=== PATIENT | female | born 1980 | race Hispanic/Latino ===

== ENCOUNTER 2018-02-02 15:26 | Emergency (ER) | payer BC ==
--- NOTE | 2018-02-02 18:34 | RAD REPORT ---
EXAM DESCRIPTION: [place] Single View02/02/2018 6:02 pm CLINICAL HISTORY: Chest pain COMPARISON: none FINDINGS: An area of subsegmental atelectasis is present within the left lung base. The remainder of the lungs appear clear of acute infiltrate. The heart is normal size
--- NOTE | 2018-02-02 18:37 | EDPHYS ---
Physician Documentation [facility] Name: Christiane Lyles Age: 37 yrs Sex: Female : 1980 Arrival Date: 02/02/2018 Time: 15:28 Bed 3 Private MD: ED Physician Maxwell Armstrong HPI: 02/02 20:05 This 37 yrs old Female presents to ER via Ambulatory with complaints of Chest jr8 Pain > 30 y/o. 20:05 The patient or guardian reports chest pain that is located primarily in the anterior jr8 chest wall, bilaterally. The pain does not radiate. Associated signs and symptoms: Pertinent positives: cough. The chest pain is described as sharp. Modifying factors: The symptoms are alleviated by nothing. the symptoms are aggravated by breathing, cough, movement. Severity of pain: At its worst the pain was mild in the emergency department the pain is unchanged. The patient has not experienced similar symptoms in the past. The patient has been recently seen at an urgent care. Sent to ED after having ECG completed. Stated that they were concerned because it had said borderline ECG . 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 - Social history:: Smoking status: Patient uses tobacco products, smokes one pack cigarettes per day. - Ebola Screening: : Patient negative for fever greater than or equal to 101.5 degrees Fahrenheit, and additional compatible Ebola Virus Disease symptoms Patient denies exposure to infectious person Patient denies travel to an Ebola-affected area in the 21 days before illness onset No symptoms or risks identified at this time. ROS: 20:05 Eyes: Negative for injury, pain, redness, and discharge, Neck: Negative for injury, jr8 pain, and swelling, Abdomen/GI: Negative for abdominal pain, nausea, vomiting, diarrhea, and constipation, Back: Negative for injury and pain, MS/Extremity: Negative for injury and deformity, Skin: Negative for injury, rash, and discoloration, Neuro: Negative for headache, weakness, numbness, tingling, and seizure. 20:05 ENT: Positive for rhinorrhea, sinus congestion, Negative for drainage from ear(s), ear pain, difficulty swallowing, difficulty handling secretions, hoarseness. 20:05 Cardiovascular: Positive for chest pain, Negative for edema, orthopnea, palpitations, paroxysmal nocturnal dyspnea. 20:05 Respiratory: Positive for cough, Negative for dyspnea on exertion, shortness of breath, sputum production, wheezing. Exam: 20:05 Eyes: Pupils equal round and reactive to light, extra-ocular motions intact. Lids and jr8 lashes normal. Conjunctiva and sclera are non-icteric and not injected. Cornea within normal limits. Periorbital areas with no swelling, redness, or edema. ENT: Nares patent. No nasal discharge, no septal abnormalities noted. Tympanic membranes are normal and external auditory canals are clear. Oropharynx with no redness, swelling, or masses, exudates, or evidence of obstruction, uvula midline. Mucous membranes moist. Neck: Trachea midline, no thyromegaly or masses palpated, and no cervical lymphadenopathy. Supple, full range of motion without nuchal rigidity, or vertebral point tenderness. No Meningismus. Cardiovascular: Regular rate and rhythm with a normal S1 and S2. No gallops, murmurs, or rubs. Normal PMI, no JVD. No pulse deficits. Respiratory: Lungs have equal breath sounds bilaterally, clear to auscultation and percussion. No rales, rhonchi or wheezes noted. No increased work of breathing, no retractions or nasal flaring. Abdomen/GI: Soft, non-tender, with normal bowel sounds. No distension or tympany. No guarding or rebound. No evidence of tenderness throughout. Back: No spinal tenderness. No costovertebral tenderness. Full range of motion. Skin: Warm, dry with normal turgor. Normal color with no rashes, no lesions, and no evidence of cellulitis. MS/ Extremity: Pulses equal, no cyanosis. Neurovascular intact. Full, normal range of motion. Neuro: Awake and alert, GCS 15, oriented to person, place, time, and situation. Cranial nerves II-XII grossly intact. Motor strength 5/5 in all extremities. Sensory grossly intact. Cerebellar exam normal. Normal gait. 20:05 Chest/axilla: Inspection: normal, Palpation: tenderness, that is moderate, of the mid-sternal area, that totally reproduces the patient's complaints. Vital Signs: 15:41 BP 123 / 71; Pulse 85; Resp 16; Temp 97.8; Pulse Ox 97% on R/A; Weight 81.65 kg; Height aj 5 ft. 3 in. (160.02 cm); 17:10 BP 122 / 75; Pulse 80; Resp 16 S; Pulse Ox 100% on R/A; jl7 18:15 BP 124 / 72; Pulse 79; Resp 16; Pulse Ox 100% on R/A; jl7 15:41 Body Mass Index 31.89 (81.65 kg, 160.02 cm) aj MDM: 17:03 Patient medically screened. jr8 18:31 Data reviewed: vital signs, nurses notes, EKG, radiologic studies, plain films, and as jr8 a result, I will discharge patient. Data interpreted: Pulse oximetry: on room air is 97 %. Interpretation: normal. Counseling: I had a detailed discussion with the patient and/or guardian regarding: the historical points, exam findings, and any diagnostic results supporting the discharge/admit diagnosis, radiology results, the need for outpatient follow up, a family practitioner, to return to the emergency department if symptoms worsen or persist or if there are any questions or concerns that arise at home. 02/02 17:31 Order name: XRAY Chest (1 view); Complete Time: 18:36 jr8 02/02 17:49 Order name: EKG Electrocardiogram EDMS Administered Medications: No medications were administered Disposition: 02/03 07:18 Co-signature as Attending Physician, Maxwell Armstrong MD I agree with the assessment and kdr plan of care. Disposition: 02/02/18 18:36 Discharged to Home. Impression: Chest pain, unspecified. - Condition is Stable. - Discharge Instructions: Chest Wall Pain. - Prescriptions for Ibuprofen 800 mg Oral Tablet - take 1 tablet by ORAL route every 12 hours As needed take with food; 20 tablet. Zithromax Z- Ayden 250 mg Oral Tablet - take 1 tablet by ORAL route as directed for 5 days Day 1 - take two (2) tablets one time. Day 2, 3, 4 , 5 take one (1) tablet once daily.; 6 tablet. Medrol (Ayden) 4 mg Oral Tablets, Dose Pack - take 1 tablet by ORAL route as directed - follow package instructions; 1 packet. - Medication Reconciliation Form, Thank You Letter, Antibiotic Education, Prescription Opioid Use form. - Follow up: Private Physician; When: 2 - 3 days; Reason: Recheck today's complaints, Continuance of care, Re-evaluation by your physician. - Problem is new. - Symptoms have improved. Signatures: Dispatcher [employer] EDMS Brigida Duarte, RN RN Maxwell Newman MD MD kdr Roszak, Josh, PA PA jr8 Adrianna Mills RN RN jl7 Corrections: (The following items were deleted from the chart) 02/02 19:04 18:36 02/02/2018 18:36 Discharged to Home. Impression: Chest pain, unspecified. jl7 Condition is Stable. Forms are Medication Reconciliation Form, Thank You Letter, Antibiotic Education, Prescription Opioid Use. Follow up: Private Physician; When: 2 - 3 days; Reason: Recheck today's complaints, Continuance of care, Re-evaluation by your physician. Problem is new. Symptoms have improved. jr8
--- NOTE | 2018-02-02 18:37 | ER ---
Nurse's Notes [facility] Name: Christiane Lyles Age: 37 yrs Sex: Female : 1980 Arrival Date: 02/02/2018 Time: 15:28 Bed 3 Private MD: Diagnosis: Chest pain, unspecified Presentation: 02/02 15:37 Presenting complaint: Patient states: Sent from [facility] after borderline aj EKG. Patient reports having chest pressure and vomiting on Tuesday. Reports sinus congestion and ear pain today with "tenderness to chest" with palpation. Transition of care: patient was not received from another setting of care. Onset of symptoms was January 31, 2018. Risk Assessment: Do you want to hurt yourself or someone else? Patient reports no desire to harm self or others. Initial Sepsis Screen: Does the patient meet any 2 criteria? No. Patient's initial sepsis screen is negative. Does the patient have a suspected source of infection? No. Patient's initial sepsis screen is negative. Care prior to arrival: None. 15:37 Method Of Arrival: Ambulatory 15:37 Acuity: SAROJ 3 Triage Assessment: 15:39 General: Appears in no apparent distress. comfortable, Behavior is calm, cooperative, aj appropriate for age. Pain: Complains of pain in right ear, left ear, chest, left aspect of posterior pharynx and right aspect of posterior pharynx. EENT: Reports nasal congestion nasal discharge pain in left ear and right ear. Neuro: Level of Consciousness is awake, alert, obeys commands, Oriented to person, place, time, situation, Appropriate for age. Cardiovascular: Reports chest pain. Respiratory: Airway is patent Respiratory effort is even, unlabored, Respiratory pattern is regular, symmetrical. Derm: Skin is intact, is healthy with good turgor, Skin is pink, warm \\T\\ dry. normal. 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 - Social history:: Smoking status: Patient uses tobacco products, smokes one pack cigarettes per day. - Ebola Screening: : Patient negative for fever greater than or equal to 101.5 degrees Fahrenheit, and additional compatible Ebola Virus Disease symptoms Patient denies exposure to infectious person Patient denies travel to an Ebola-affected area in the 21 days before illness onset No symptoms or risks identified at this time. Screenin:15 Abuse screen: Denies threats or abuse. Denies injuries from another. Nutritional jl7 screening: No deficits noted. Tuberculosis screening: No symptoms or risk factors identified. Fall Risk None identified. Assessment: 17:10 General: Appears in no apparent distress. uncomfortable, Behavior is calm, cooperative, jl7 appropriate for age. Pain: Complains of pain in mid-sternal area Pain does not radiate. Pain currently is 0 out of 10 on a pain scale. at worst was 5 out of 10 on a pain scale. Quality of pain is described as burning, pressure, Pain began 2-3 days ago. Is intermittent. Neuro: Level of Consciousness is awake, alert, obeys commands, Oriented to person, place, time, situation. Cardiovascular: Heart tones S1 S2 present Patient's skin is warm and dry. Respiratory: Airway is patent Respiratory effort is even, unlabored, Respiratory pattern is regular, symmetrical. GI: No signs and/or symptoms were reported involving the gastrointestinal system. : No signs and/or symptoms were reported regarding the genitourinary system. EENT: No signs and/or symptoms were reported regarding the EENT system. Derm: Skin is pink, warm \\T\\ dry. Musculoskeletal: No signs and/or symptoms reported regarding the musculoskeletal system. Vital Signs: 15:41 BP 123 / 71; Pulse 85; Resp 16; Temp 97.8; Pulse Ox 97% on R/A; Weight 81.65 kg; Height aj 5 ft. 3 in. (160.02 cm); 17:10 BP 122 / 75; Pulse 80; Resp 16 S; Pulse Ox 100% on R/A; jl7 18:15 BP 124 / 72; Pulse 79; Resp 16; Pulse Ox 100% on R/A; jl7 15:41 Body Mass Index 31.89 (81.65 kg, 160.02 cm) aj ED Course: 15:28 Patient arrived in ED. am2 15:39 Triage completed. aj 15:41 Arm band placed on right wrist. Patient placed. EKG completed in triage. Results shown aj to MD. 16:02 EKG done, by hvac technician residential. dt2 17:03 Lucio Gardner PA is PHCP. jr8 17:03 Maxwell Armstrong MD is Attending Physician. jr8 17:05 Adrianna Mills, RN is Primary Nurse. jl7 17:15 Patient has correct armband on for positive identification. Placed in gown. Bed in low jl7 position. Call light in reach. Side rails up X 1. surveillance system monitor on. Pulse ox on. NIBP on. Warm blanket given. 17:41 Initial lab(s) drawn, by me. Inserted saline lock: 22 gauge in left antecubital area, jb1 using aseptic technique. Blood collected. 18:01 X-ray completed. Portable x-ray completed in exam room. jr1 18:04 XRAY Chest (1 view) In Process Unspecified. EDMS 19:09 IV discontinued, intact, bleeding controlled, No redness/swelling at site. Pressure jl7 dressing applied. Patient maintains SpO2 saturation greater than 95% on room air. 19:09 No provider procedures requiring assistance completed. jl7 Administered Medications: No medications were administered Outcome: 18:36 Discharge ordered by MD. jr8 19:04 Patient left the ED. jl7 19:09 Discharged to home ambulatory. jl7 19:09 Condition: stable 19:09 Discharge instructions given to patient, Instructed on discharge instructions, follow up and referral plans. medication usage, Demonstrated understanding of instructions, follow-up care, medications, Prescriptions given X 3. Signatures: Dispatcher [employer] EDWV Kirby Brian jb1 Brigida Duarte, RN Bijal Perry jr1 Lucio Gardner PA PA jr8 Adrianna Mills, RN RN Brigida Cotto am2 Lolita Manley dt2
--- NOTE | 2018-02-03 07:35 | EKG ---
Test Date: 2018-02-02 Test Time: 15:43:48 [employer] Architect: MARKO MEASUREMENT RESULTS: Intervals: Rate: 82 DE: 150 QRSD: 76 QT: 352 QTc: 411 [place]: P: 52 DE: 150 QRS: 77 T: 52 INTERPRETIVE STATEMENTS: Normal sinus rhythm Possible Left atrial enlargement Borderline ECG No previous ECG available for comparison Electronically Signed On 02-03-18 07:34:10 CDT by John Soni
== END 2018-02-02 19:04 | disposition home or self-care (01) ==
LOC: ER 15:26
DX: R07.9 Chest pain, unspecified (principal); F32.9 Major depressive disorder, single episode, unspecified; F41.9 Anxiety disorder, unspecified; F17.210 Nicotine dependence, cigarettes, uncomplicated; Z86.73 Personal history of transient ischemic attack (TIA), and cerebral infarction without residual deficits
CPT/HCPCS: 71045; 93005; 99285

== ENCOUNTER 2021-03-16 17:15 | Emergency (ER) | payer BC ==
[2021-03-16 17:52] LABS: Urine Blood 1+ (Negative); Urine Glucose Negative (Negative); Urine Protein Negative (Negative); Urine Specific Gravity 1.015 (1.005-1.030)
[2021-03-16 17:58] LABS: Urine Specific Gravity/Preg 1.015 (1.005-1.030)
[2021-03-16] MEDS ORDERED: FAMOTIDINE 20 MG/2 ML VIAL IV ONE (19:00)
[2021-03-16] MEDS ORDERED: MORPHINE 4 MG/ML SYR ONE (19:00)
[2021-03-16] MEDS ORDERED: ONDANSETRON 4 MG/2 ML VIAL ONE (19:00)
[2021-03-16 19:03] LABS: Absolute Lymphocytes (CBC) 3.2 K/uL (0.7-4.9); Basophils % 1.5 % (0-1.3); Hematocrit 41.4 % (36.0-45.0); MPV 6.7 fL (7.6-11.3); RBC Red Blood Cell Count 4.74 M/uL (3.86-4.86)
[2021-03-16 19:10] LABS: Protime INR 0.96
--- NOTE | 2021-03-16 19:19 | RAD REPORT ---
EXAM DESCRIPTION: RAD - [place] Single View - 03/16/2021 7:00 pm CLINICAL HISTORY: CHEST PAIN COMPARISON: January 2018 TECHNIQUE: AP portable chest image was obtained 03/16/2021 7:00 pm . FINDINGS: No peripheral mass or consolidation. Interstitial pattern is accentuated by under penetrat ed technique and overlying soft tissues. No significant infiltrate or edema pattern. Failure or volum e overload are not suspected. Trachea is in midline. Hilar regions show no mass or lymphadenopathy. Heart and vasculature are luis l. No measurable pleural effusion and no pneumothorax. No acute bony abnormality seen. No acute aorti c findings suspected. IMPRESSION: No acute cardiopulmonary process. No significant change from comparison study.
[2021-03-16 19:25] LABS: ALT/SGPT 27 U/L (12-78); AST/SGOT 13 U/L (15-37); Albumin 3.9 g/dL (3.4-5.0); Alkaline Phosphatase 100 U/L (45-117); BUN Blood Urea Nitrogen 8 mg/dL (7-18); Bicarbonate 27 mmol/L (21-32); Bilirubin Direct < 0.1 mg/dL (0-0.2); Bilirubin Total 0.3 mg/dL (0.2-1.0); Glucose Level 95 mg/dL (74-106); Lipase 66 U/L (73-393); Magnesium 2.1 mg/dL (1.8-2.4); NT PRO-BNP 48 pg/mL (<125); Potassium 3.9 mmol/L (3.5-5.1); Protein, Total 7.3 g/dL (6.4-8.2); Sodium Level 140 mmol/L (136-145); Troponin (Emerg Dept Use Only) < 0.02 ng/mL (0.0-0.045)
--- NOTE | 2021-03-16 22:02 | ER ---
Nurse's Notes [facility] Name: Christiane Lyles Age: 40 yrs Sex: Female : 1980 Arrival Date: 03/16/2021 Time: 17:18 Bed 13 Private MD: Diagnosis: Chest pain, unspecified Presentation: 03/16 17:29 Chief complaint: Patient states: CP and indigestion for 2 days. Jaw and back pain ll1 started today. No cough or fever. Coronavirus screen: Vaccine status: Patient reports receiving the 2nd dose of the covid vaccine. Client denies travel out of the [place] in the last 14 days. At this time, the client does not indicate any symptoms associated with coronavirus-19. Ebola Screen: Patient denies travel to an Ebola-affected area in the 21 days before illness onset. Initial Sepsis Screen: Does the patient meet any 2 criteria? No. Patient's initial sepsis screen is negative. Does the patient have a suspected source of infection? No. Patient's initial sepsis screen is negative. Risk Assessment: Do you want to hurt yourself or someone else? Patient reports no desire to harm self or others. Onset of symptoms was March 15, 2021. 17:29 Method Of Arrival: Ambulatory ll1 17:29 Acuity: SAROJ 3 ll1 Triage Assessment: 22:15 General: Appears in no apparent distress. Behavior is calm, cooperative, appropriate ms4 for age. Pain: Denies pain. Historical: - Allergies: 17:29 No Known Allergies; ll1 - PMHx: 17:29 Anxiety; CVA; Depression; bipolar; ll1 - PSHx: 17:29 None; ll1 - Immunization history:: Client reports receiving the 2nd dose of the Covid vaccine. - Social history:: Smoking status: Patient reports the use of cigarette tobacco products, smokes one-half pack cigarettes per day. Screenin:53 Abuse screen: Denies threats or abuse. Denies injuries from another. Nutritional tc5 screening: No deficits noted. Tuberculosis screening: No symptoms or risk factors identified. Fall Risk None identified. Assessment: 17:52 Pain: Complains of pain in chest and neck Pain radiates to neck Quality of pain is tc5 described as pressure, Pain began 1 day ago. 22:15 Reassessment: Patient appears in no apparent distress at this time. No changes from ms4 previously documented assessment. Patient and/or family updated on plan of care and expected duration. Pain level reassessed. Patient is alert, oriented x 3, equal unlabored respirations, skin warm/dry/pink. Cardiovascular: No deficits noted. Vital Signs: 17:29 BP 145 / 91; Pulse 78; Resp 16; Temp 97.5; Pulse Ox 98% on R/A; Weight 90.26 kg; Height ll1 5 ft. 3 in. (160.02 cm); Pain 5/10; 17:53 BP 128 / 92; Pulse 70; Resp 20; Pulse Ox 98% ; Pain 7/10; tc5 19:43 BP 118 / 82; Pulse 69; Resp 18; Temp 98.2; Pulse Ox 100% on R/A; Pain 0/10; ms4 22:15 BP 124 / 74; Pulse 78; Resp 18; Pulse Ox 98% on R/A; Pain 0/10; ms4 17:29 Body Mass Index 35.25 (90.26 kg, 160.02 cm) ll1 ED Course: 17:18 Patient arrived in ED. mr 17:29 Arm band placed on Patient placed in an exam room, on a stretcher. ll1 17:33 Triage completed. ll1 17:38 Mia Quezada, RN is Primary Nurse. tc5 17:43 Ronaldo Horner PA is PHCP. cp 17:43 Madhavi Newman MD is Attending Physician. cp 18:59 XRAY Chest (1 view) In Process Unspecified. EDMS 19:08 Inserted saline lock: 20 gauge in right antecubital area, using aseptic technique. tc5 Blood collected. 19:25 CBC with Diff Sent. ms4 19:25 Basic Metabolic Panel Sent. ms4 21:13 Troponin (emerg Dept Use Only) Sent. ms4 22:00 John Soni MD is Referral Physician. cp 22:15 No provider procedures requiring assistance completed. IV discontinued, intact, ms4 bleeding controlled. Patient maintains SpO2 saturation greater than 95% on room air. 22:16 Patient has correct armband on for positive identification. quality assurance monitor chassis on. Pulse ms4 ox on. NIBP on. Administered Medications: 18:59 Drug: Zofran (Ondansetron) 4 mg Route: IVP; Site: right antecubital; tc5 18:59 Drug: Pepcid (famotidine) 20 mg Route: IVP; Site: right antecubital; tc5 19:00 Drug: morphine 4 mg Route: IVP; Site: right antecubital; tc5 Outcome: 22:01 Discharge ordered by . lila 22:16 Discharged to home ambulatory. ms4 22:16 Condition: stable 22:16 Discharge instructions given to patient, Instructed on discharge instructions, Demonstrated understanding of instructions, follow-up care, medications, Prescriptions given X 1. 22:16 Patient left the ED. ms4 Signatures: Dispatcher [employer] EDMN Iris Mcgee mr Ronaldo Horner PA PA cp Lewis, Lynsay, RN RN ll1 Mare Mercedes RN RN ms4 Mia Quezada RN RN tc5
--- NOTE | 2021-03-16 22:02 | EDPHYS ---
Physician Documentation [facility] Name: Christiane Lyles Age: 40 yrs Sex: Female : 1980 Arrival Date: 03/16/2021 Time: 17:18 Bed 13 Private MD: ED Physician Madhavi Newman HPI: 03/16 18:15 This 40 yrs old Female presents to ER via Ambulatory with complaints of Chest cp Pain, Jaw Pain, Back Pain. 18:15 The patient or guardian reports chest pain that is located primarily in the anterior cp chest wall, bilaterally. 18:15 Onset: yesterday. The pain radiates to jaw, left back. Associated signs and symptoms: cp Pertinent negatives: abdominal pain, cough, diaphoresis, dizziness, lower extremity pain, lower extremity swelling, shortness of breath, syncope. The chest pain is described as aching, causing indigestion. Duration: The patient or guardian reports a single episode, that is still ongoing, and unchanged. Historical: - Allergies: 17:29 No Known Allergies; ll1 - PMHx: 17:29 Anxiety; CVA; Depression; bipolar; ll1 - PSHx: 17:29 None; ll1 - Immunization history:: Client reports receiving the 2nd dose of the Covid vaccine. - Social history:: Smoking status: Patient reports the use of cigarette tobacco products, smokes one-half pack cigarettes per day. ROS: 18:20 Cardiovascular: Positive for chest pain, Negative for edema, palpitations. cp 18:20 Eyes: Negative for injury, pain, redness, and discharge. cp 18:20 Constitutional: Negative for body aches, chills, fever, poor PO intake. 18:20 ENT: Negative for ear pain, sore throat, difficulty swallowing, difficulty handling secretions. 18:20 Respiratory: Negative for cough, shortness of breath, wheezing. 18:20 Abdomen/GI: Negative for abdominal pain, vomiting, diarrhea, constipation. 18:20 Back: Positive for radiated pain, of the left scapular area and left subscapular area, Negative for injury or acute deformity, decreased range of motion. 18:20 Skin: Negative for cellulitis, rash. 18:20 Neuro: Negative for altered mental status, headache, numbness, syncope, weakness. 18:20 All other systems are negative. Exam: 18:14 ECG was reviewed by the Attending Physician. cp 18:25 Constitutional: The patient appears in no acute distress, alert, awake, cp non-diaphoretic, non-toxic, well developed, well nourished, obese. 18:25 Head/Face: Normocephalic, atraumatic. cp 18:25 Eyes: Periorbital structures: appear normal, Conjunctiva: normal, no exudate, no injection, Sclera: no appreciated abnormality, Lids and lashes: appear normal, bilaterally. 18:25 ENT: External ear(s): are unremarkable, Nose: is normal, Mouth: Lips: moist, Oral mucosa: moist, Posterior pharynx: Airway: no evidence of obstruction, patent. 18:25 Neck: External neck: is normal, ROM/movement: pain, that is mild, with any movement, limited range of motion, is not appreciated, nuchal rigidity, is not appreciated, Lymph nodes: no appreciated lymphadenopathy. 18:25 Chest/axilla: Inspection: normal, Palpation: crepitus, is not appreciated. 18:25 Cardiovascular: Rate: normal, Rhythm: regular, Edema: is not appreciated, JVD: is not appreciated. 18:25 Respiratory: the patient does not display signs of respiratory distress, Respirations: normal, no use of accessory muscles, labored breathing, is not present. 18:25 Abdomen/GI: Inspection: abdomen appears normal, Bowel sounds: active, all quadrants, Palpation: abdomen is soft and non-tender, in all quadrants. 18:25 Back: pain, that is mild, of the left scapular area and left subscapular area, ROM is normal. 18:25 Skin: cellulitis, is not appreciated, no rash present. 18:25 Neuro: Orientation: to person, place \T\ time. Mentation: is normal, Motor: moves all fours, strength is normal, Sensation: is normal. 19:40 ECG was reviewed by the Attending Physician. cp Vital Signs: 17:29 BP 145 / 91; Pulse 78; Resp 16; Temp 97.5; Pulse Ox 98% on R/A; Weight 90.26 kg; Height ll1 5 ft. 3 in. (160.02 cm); Pain 5/10; 17:53 BP 128 / 92; Pulse 70; Resp 20; Pulse Ox 98% ; Pain 7/10; tc5 19:43 BP 118 / 82; Pulse 69; Resp 18; Temp 98.2; Pulse Ox 100% on R/A; Pain 0/10; ms4 22:15 BP 124 / 74; Pulse 78; Resp 18; Pulse Ox 98% on R/A; Pain 0/10; ms4 17:29 Body Mass Index 35.25 (90.26 kg, 160.02 cm) ll1 MDM: 17:50 Patient medically screened. cp 19:00 Differential diagnosis: acute myocardial infarction, acute pericarditis, chest wall cp pain, pleurisy, pneumonia, pneumothorax, pulmonary embolus, stable angina, unstable angina. 22:00 Data reviewed: vital signs, nurses notes, lab test result(s), EKG, radiologic studies, cp plain films. 22:00 Test interpretation: by ED physician or midlevel provider: ECG, plain radiologic cp studies. ED course: VSS. Pain resolved. Los suspicion for cardiac cause of pain. EKG, initial and repeat troponin negative. Will discharge to home and recommend f/u with cardiology. 03/16 17:51 Order name: Urine --Ancillary (enter results); Complete Time: 19:33 bd 03/16 17:51 Order name: Urine Dipstick-Ancillary; Complete Time: 19:33 EDMS 03/16 19:33 Interpretation: Normal except: UBLD 1+; UESTR Trace. cp 03/16 18:08 Order name: Basic Metabolic Panel cp 03/16 18:08 Order name: CBC with Diff cp 03/16 18:08 Order name: LFT's; Complete Time: 19:33 cp 03/16 18:08 Order name: Magnesium; Complete Time: 19:33 cp 03/16 18:08 Order name: NT PRO-BNP; Complete Time: 19:33 cp 03/16 18:08 Order name: PT-INR; Complete Time: 19:33 cp 03/16 18:08 Order name: Troponin (emerg Dept Use Only); Complete Time: 19:33 cp 03/16 18:08 Order name: Lipase; Complete Time: 19:33 cp 03/16 20:22 Interpretation: Reviewed. cp 03/16 18:08 Order name: Basic Metabolic Panel; Complete Time: 19:33 EDMS 03/16 18:08 Order name: CBC with Automated Diff; Complete Time: 19:33 EDMS 03/16 20:33 Order name: SARS-COV-2 RT PCR EDMS 03/16 17:43 Order name: EKG; Complete Time: 17:44 cp 03/16 17:43 Order name: EKG - Nurse/Tech; Complete Time: 19:25 cp 03/16 18:08 Order name: XRAY Chest (1 view); Complete Time: 19:33 cp 03/16 18:08 Order name: Cardiac monitoring; Complete Time: 19:25 cp 03/16 18:08 Order name: IV Saline Lock; Complete Time: 19:25 cp 03/16 18:08 Order name: Labs collected and sent; Complete Time: 19:25 cp 03/16 18:08 Order name: O2 Per Protocol; Complete Time: 19:25 cp 03/16 18:08 Order name: O2 Sat Monitoring; Complete Time: 19:25 cp 03/16 21:04 Order name: Troponin (emerg Dept Use Only) 03/16 21:05 Order name: Troponin (Emerg Dept Use Only) EDMS EC:14 Rate is 70 beats/min. Rhythm is regular. MO interval is normal. QRS interval is normal. cp QT interval is normal. T waves are Inverted in lead aVR. Interpreted by me. Reviewed by me. 19:40 Rate is 65 beats/min. Rhythm is regular. MO interval is normal. QRS interval is normal. cp QT interval is normal. T waves are Inverted in lead aVR. Interpreted by me. Reviewed by me. Administered Medications: 18:59 Drug: Zofran (Ondansetron) 4 mg Route: IVP; Site: right antecubital; tc5 18:59 Drug: Pepcid (famotidine) 20 mg Route: IVP; Site: right antecubital; tc5 19:00 Drug: morphine 4 mg Route: IVP; Site: right antecubital; tc5 Disposition: 03/17 14:26 Co-signature as Attending Physician, Madhavi Newman MD I agree with the assessment and sp3 plan of care. Disposition Summary: 03/16/21 22:01 Discharge Ordered Location: Home cp Problem: new cp Symptoms: have improved cp Condition: Stable cp Diagnosis - Chest pain, unspecified cp Followup: cp - With: John Soni MD - When: 2 - 3 days - Reason: Recheck today's complaints Discharge Instructions: - Discharge Summary Sheet cp - Nonspecific Chest Pain, Adult cp - Aspirin and Your Heart cp Forms: - Medication Reconciliation Form cp - Thank You Letter cp - Antibiotic Education cp - Prescription Opioid Use cp Prescriptions: - Diclofenac Sodium 75 mg Oral tablet,delayed release (DR/EC) - take 1 tablet by ORAL route 2 times per day; 20 tablet; Refills: 0, Product cp Selection Permitted Signatures: Dispatcher [employer] EDMS Ronaldo Horner PA PA cp Lewis, Lynsay, RN RN ll1 Madhavi Newman MD MD sp3 Mia Quezada RN RN tc5 Corrections: (The following items were deleted from the chart) 03/16 20:33 19:35 CORONAVIRUS+[email or web address].BRZ ordered. EDMS EDMS
[2021-03-16 22:25] VITALS: TEMP 98.2
[2021-03-16 22:27] VITALS: BP 124/74; O2SAT 98
--- NOTE | 2021-03-17 16:44 | EKG ---
Test Date: 2021-03-16 Test Time: 18:11:43 Tank Stave Assembler: KESHIA MEASUREMENT RESULTS: Intervals: Rate: 70 NC: 176 QRSD: 80 QT: 384 QTc: 414 Page: P: 53 NC: 176 QRS: 79 T: 55 INTERPRETIVE STATEMENTS: Normal sinus rhythm Normal ECG Compared to ECG 02/02/2018 15:43:48 No significant changes Electronically Signed On 03-17-21 16:41:14 CDT by John Soni
--- NOTE | 2021-03-17 16:44 | EKG ---
Test Date: 2021-03-16 Test Time: 19:34:28 Jig And Fixture Repairer: MEASUREMENT RESULTS: Intervals: Rate: 65 AZ: 174 QRSD: 82 QT: 394 QTc: 409 Hickman: P: 50 AZ: 174 QRS: 66 T: 38 INTERPRETIVE STATEMENTS: Normal sinus rhythm Normal ECG Compared to ECG 03/16/2021 18:11:43 No significant changes Electronically Signed On 03-17-21 16:41:10 CDT by John Soni
== END 2021-03-16 22:16 | disposition home or self-care (01) ==
LOC: ER 17:15
DX: R07.9 Chest pain, unspecified (principal); Z20.822 Contact with and (suspected) exposure to COVID-19; F17.210 Nicotine dependence, cigarettes, uncomplicated
CPT/HCPCS: 93005 ×2; 85025; 80048; 36415; 83735; 81025; 85610; 80076; 81003; 84484 ×2; 83690; 83880; 71045; 96375; 96374; 99285; U0003; J2405

== ENCOUNTER 2021-03-23 09:37 | Emergency (ER) | payer BC ==
[2021-03-23] MEDS ORDERED: NA CHLORIDE 0.9% 1,000 ML ONE (10:48)
[2021-03-23 10:55] LABS: Absolute Lymphocytes (CBC) 2.5 K/uL (0.7-4.9); Hematocrit 43.9 % (36.0-45.0); Lymphocytes % 36.8 % (15.3-44.8); MPV 6.8 fL (7.6-11.3); RBC Red Blood Cell Count 4.98 M/uL (3.86-4.86)
[2021-03-23 10:56] LABS: Protime INR 0.92
[2021-03-23 10:56] LABS: Urine Blood 1+ (Negative); Urine Glucose Negative (Negative); Urine Protein Negative (Negative)
[2021-03-23 11:49] LABS: ALT/SGPT 26 U/L (12-78); AST/SGOT 15 U/L (15-37); Albumin 4.1 g/dL (3.4-5.0); Bicarbonate 28 mmol/L (21-32); Bilirubin Direct < 0.1 mg/dL (0-0.2); Glucose Level 100 mg/dL (74-106); Lipase 80 U/L (73-393); Protein, Total 7.8 g/dL (6.4-8.2); Sodium Level 141 mmol/L (136-145)
[2021-03-23 12:01] LABS: Alkaline Phosphatase 103 U/L (45-117); BUN Blood Urea Nitrogen 12 mg/dL (7-18); Bilirubin Total 0.3 mg/dL (0.2-1.0)
[2021-03-23 12:02] LABS: Urine Bacteria <20 /HPF (<20)
--- NOTE | 2021-03-23 12:40 | RAD REPORT ---
EXAM DESCRIPTION: 4 - Abdomen Pelvis W Contrast - 03/23/2021 12:18 pm CLINICAL HISTORY: Abdominal pain. COMPARISON: None. TECHNIQUE: Computed axial tomography of the abdomen and pelvis was obtained. 100 cc Isovue-300 is ad ministered intravenously. Oral contrast was given. All CT scans are performed using dose optimization technique as appropriate and may include automated exposure control or mA/KV adjustment according to patient size. FINDINGS: The liver, spleen, pancreas, and adrenals appear unremarkable. Tiny bilateral renal calculi. Small right renal cyst. Mild prominence of a right extrarenal pelvis. P ortions of the right ureter are dilated. A ureteral calculus is not visualized. The appendix is normal caliber. There is no evidence of diverticulitis Tubal ligation clips. An umbilical hernia with a neck of 1 centimeter contains loop of small bowel. IMPRESSION: Umbilical hernia containing nondilated small bowel Bilateral tiny
[2021-03-23] MEDS ORDERED: ONDANSETRON 4 MG/2 ML VIAL ONE (13:07)
[2021-03-23] MEDS ORDERED: MORPHINE 4 MG/ML SYR ONE (13:07)
--- NOTE | 2021-03-23 13:35 | ER ---
Nurse's Notes [facility] Name: Christiane Lyles Age: 40 yrs Sex: Female : 1980 Arrival Date: 03/23/2021 Time: 09:40 Bed 17 Private MD: Diagnosis: Calculus of kidney with calculus of ureter;Abdominal pain, unspecified Presentation: 03/23 09:58 Chief complaint: Patient states: "I've been constipated since Tuesday and I went a aa5 little bit today and the stool was black". Coronavirus screen: At this time, the client does not indicate any symptoms associated with coronavirus-19. Ebola Screen: No symptoms or risks identified at this time. Initial Sepsis Screen: Does the patient meet any 2 criteria? No. Patient's initial sepsis screen is negative. Does the patient have a suspected source of infection? No. Patient's initial sepsis screen is negative. Risk Assessment: Do you want to hurt yourself or someone else? Patient reports no desire to harm self or others. Onset of symptoms was February 2021. 09:58 Method Of Arrival: Ambulatory aa5 09:58 Acuity: SAROJ 3 aa5 Historical: - Allergies: 09:59 No Known Allergies; aa5 - PMHx: 09:59 Anxiety; Bipolar; CVA; Depression; aa5 - Immunization history:: Client reports receiving the 2nd dose of the Covid vaccine. - Social history:: Smoking status: Patient reports the use of cigarette tobacco products, smokes one-half pack cigarettes per day. Screenin:01 Abuse screen: Denies threats or abuse. Nutritional screening: No deficits noted. tw2 Tuberculosis screening: No symptoms or risk factors identified. Fall Risk None identified. Assessment: 10:02 General: Appears in no apparent distress. well groomed, well developed, Behavior is sl2 calm, cooperative. 10:02 Pain: Complains of pain in epigastric and lower abdomen Pain does not radiate. Pain sl2 currently is 5 out of 10 on a pain scale. Quality of pain is described as aching, pressure, Pain began 5 days Is continuous, Alleviated by nothing. Aggravated by. Neuro: No deficits noted. Cardiovascular: No deficits noted. Respiratory: No deficits noted. GI: Abdomen is round Stools are reported to be constipated. Last BM was March 23, 2021. Bowel sounds present X 4 quads. Abd is soft X 4 quads Abdomen is tender to palpation in epigastric area and right lower quadrant Reports bloating, constipation, gaseousness, Reports constipation X 5 days - however had small bowel movement this AM - concerned because it was black colored stool. Patient currently denies diarrhea, nausea. : No deficits noted. EENT: No deficits noted. Derm: No deficits noted. Musculoskeletal: No deficits noted. 10:31 Reassessment:. sl2 10:43 Reassessment: notified CT that pt drank IV contrast at this time. tw2 12:08 Reassessment: Patient transported to radiology dept for Cat scan via wheelchair. sl2 13:24 Reassessment: Patient c/o dark stool this AM. Rectal examination completed by EDP - sl2 Nurse Practitioner Eliane chaperoned by Jaz Grant RN. Patient tolerated examination well - stool for occult blood negative. Vital Signs: 09:58 BP 139 / 93; Pulse 81; Resp 18 S; Temp 97.0(TE); Pulse Ox 98% on R/A; Weight 89.36 kg aa5 (R); Height 5 ft. 3 in. (160.02 cm) (R); 10:02 BP 135 / 88; Pulse 85; Resp 18; Temp 97.8; Pulse Ox 98% on R/A; sl2 11:00 BP 119 / 84; Pulse 72; Resp 18; Temp 97.8; Pulse Ox 99% on R/A; sl2 12:00 BP 107 / 79; Pulse 83; Resp 18; Temp 97.8; Pulse Ox 99% on R/A; sl2 13:00 BP 109 / 82; Pulse 88; Resp 18; Temp 97.9; Pulse Ox 99% on R/A; sl2 09:58 Body Mass Index 34.90 (89.36 kg, 160.02 cm) aa5 ED Course: 09:40 Patient arrived in ED. as 09:58 Arm band placed on. aa5 09:59 Triage completed. aa5 10:01 Bed in low position. Call light in reach. tw2 10:09 Vinny Del Rio NP is PHCP. pm1 10:09 Madhavi Newman MD is Attending Physician. pm1 10:12 Jaz Grant, JOON is Primary Nurse. sl2 10:30 Initial lab(s) drawn, by me, sent to lab. Missed attempt(s): 20 gauge in right vg1 antecubital area. 10:40 Missed attempt(s): 22 gauge in left antecubital area. vg1 11:05 Inserted saline lock: 22 gauge in right antecubital area, using aseptic technique. ch5 12:11 CT Abd/Pelvis - PO and IV Contrast Sent. sl2 12:18 CT Abd/Pelvis - PO and IV Contrast In Process Unspecified. 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 pt tolerated well. vg1 13:34 Geovany Portillo MD is Referral Physician. pm1 13:58 IV discontinued. sl2 Administered Medications: 10:35 Drug: NS 0.9% 1000 ml Route: IV; Rate: 1000 ml; Site: left upper arm; sl2 11:50 Follow up: Response: No adverse reaction; IV Status: Completed infusion; IV Intake: sl2 1000ml 12:48 Drug: morphine 4 mg Route: IVP; Site: right antecubital; 5 13:30 Follow up: Response: No adverse reaction; Pain is decreased sl2 12:48 Drug: Zofran (Ondansetron) 4 mg Route: IVP; Site: right antecubital; 5 13:29 Follow up: Response: No adverse reaction sl2 13:57 Not Given (Patient Refused): Flomax (tamsulosin) 0.4 mg PO once sl2 Intake: 11:50 IV: 1000ml; Total: 1000ml. sl2 Outcome: 13:35 Discharge ordered by MD. pm1 13:57 Discharged to home ambulatory, with friend. sl2 13:57 Condition: stable 13:57 Discharge instructions given to patient, Instructed on discharge instructions, follow up and referral plans. no drinking with medication, no driving heavy equipment, medication usage, Demonstrated understanding of instructions, follow-up care, medications, Prescriptions given X 2. 13:59 Patient left the ED. sl2 Signatures: Dispatcher [employer] Monse Burris Audri, RN RN aa5 Vinny Del Rio, ZIYAD OPEN CUT EXAMINER pm1 Shannan Villasenor RN RN 2 Jaylene Mckenzie RN RN 1 Marlon Reis RN RN 5 Jaz Grant RN RN 2
--- NOTE | 2021-03-23 13:35 | EDPHYS ---
Physician Documentation [facility] Name: Christiane Lyles Age: 40 yrs Sex: Female : 1980 Arrival Date: 03/23/2021 Time: 09:40 Bed 17 Private MD: ED Physician Madhavi Newman HPI: 03/23 10:20 This 40 yrs old Female presents to ER via Ambulatory with complaints of pm1 Constipation, Abdominal Pain, Black/Tarry Stools. 10:20 The patient presents with abdominal pain that is diffuse. Onset: The symptoms/episode pm1 began/occurred 1 week(s) ago. The symptoms do not radiate. Associated signs and symptoms: Pertinent positives: constipation, Pertinent negatives: nausea, vomiting, and diarrhea, chest pain, dysuria, fever, shortness of breath. The symptoms are described as crampy. Modifying factors: The symptoms are alleviated by [place] per PCP on Tuesday. Patient with good bowel movement on the same day. No good bowel movement since then. Historical: - Allergies: 09:59 No Known Allergies; aa5 - PMHx: 09:59 Anxiety; Bipolar; CVA; Depression; aa5 - Immunization history:: Client reports receiving the 2nd dose of the Covid vaccine. - Social history:: Smoking status: Patient reports the use of cigarette tobacco products, smokes one-half pack cigarettes per day. ROS: 10:20 Constitutional: Negative for fever, chills, and weight loss, Cardiovascular: Negative pm1 for chest pain, palpitations, and edema, Respiratory: Negative for shortness of breath, cough, wheezing, and pleuritic chest pain. 10:20 Back: Negative for injury and pain, : Negative for injury, bleeding, discharge, and swelling, MS/Extremity: Negative for injury and deformity, Skin: Negative for injury, rash, and discoloration, Neuro: Negative for headache, weakness, numbness, tingling, and seizure. 10:20 Abdomen/GI: Positive for abdominal pain, constipation, Black stool, Negative for nausea, vomiting, and diarrhea. 10:20 All other systems are negative. Exam: 10:20 Constitutional: This is a well developed, well nourished patient who is awake, alert, pm1 and in no acute distress. Head/Face: Normocephalic, atraumatic. 10:20 Skin: Warm, dry with normal turgor. Normal color with no rashes, no lesions, and no evidence of cellulitis. MS/ Extremity: Pulses equal, no cyanosis. Neurovascular intact. Full, normal range of motion. 10:20 Cardiovascular: Exam negative for acute changes, Rate: normal, Rhythm: regular, Pulses: no pulse deficits are appreciated, Heart sounds: normal, Edema: is not appreciated. 10:20 Respiratory: Exam negative for acute changes, respiratory distress, shortness of breath, Breath sounds: are clear throughout. 10:20 Neuro: Exam negative for acute changes, Orientation: is normal, Mentation: is normal, Motor: is normal, no acute changes, moves all fours. 13:30 Abdomen/GI: Rectal exam: rectal tone normal, Stool: brown, guaiac negative, pm1 hemorrhoid(s), external, without bleeding, without inflammation, without thrombosis, without pain, tenderness, is not appreciated, Susana DUPREE volunteer services manager. Vital Signs: 09:58 BP 139 / 93; Pulse 81; Resp 18 S; Temp 97.0(TE); Pulse Ox 98% on R/A; Weight 89.36 kg aa5 (R); Height 5 ft. 3 in. (160.02 cm) (R); 10:02 BP 135 / 88; Pulse 85; Resp 18; Temp 97.8; Pulse Ox 98% on R/A; sl2 11:00 BP 119 / 84; Pulse 72; Resp 18; Temp 97.8; Pulse Ox 99% on R/A; sl2 12:00 BP 107 / 79; Pulse 83; Resp 18; Temp 97.8; Pulse Ox 99% on R/A; sl2 13:00 BP 109 / 82; Pulse 88; Resp 18; Temp 97.9; Pulse Ox 99% on R/A; sl2 09:58 Body Mass Index 34.90 (89.36 kg, 160.02 cm) aa5 MDM: 10:13 Patient medically screened. pm1 13:31 Data reviewed: vital signs. Data interpreted: Pulse oximetry: on room air is 99 %. pm1 Interpretation: normal. Counseling: I had a detailed discussion with the patient and/or guardian regarding: the historical points, exam findings, and any diagnostic results supporting the discharge/admit diagnosis, lab results, radiology results, the need for outpatient follow up, a crutcher helper, a urologist, to return to the emergency department if symptoms worsen or persist or if there are any questions or concerns that arise at home. 03/23 10:19 Order name: Basic Metabolic Panel; Complete Time: 12:09 pm1 03/23 10:19 Order name: CBC with Diff; Complete Time: 11:04 pm1 03/23 10:19 Order name: Hepatic Function; Complete Time: 12:09 pm1 03/23 10:19 Order name: Lipase; Complete Time: 12:09 pm1 03/23 10:19 Order name: PT-INR; Complete Time: 11:04 pm1 03/23 10:56 Order name: Urine Dipstick-Ancillary; Complete Time: 11:04 EDMS 03/23 10:19 Order name: CT Abd/Pelvis - PO and IV Contrast; Complete Time: 12:47 pm1 03/23 10:57 Order name: Urine Microscopic Only; Complete Time: 12:09 vg1 03/23 10:59 Order name: Urine --Ancillary (enter results) bd 03/23 12:03 Order name: Urine Culture [facility] 03/23 10:19 Order name: IV Saline Lock; Complete Time: 12:11 pm1 03/23 10:19 Order name: Labs collected and sent; Complete Time: 10:47 pm1 Administered Medications: 10:35 Drug: NS 0.9% 1000 ml Route: IV; Rate: 1000 ml; Site: left upper arm; sl2 11:50 Follow up: Response: No adverse reaction; IV Status: Completed infusion; IV Intake: sl2 1000ml 12:48 Drug: morphine 4 mg Route: IVP; Site: right antecubital; ch5 13:30 Follow up: Response: No adverse reaction; Pain is decreased sl2 12:48 Drug: Zofran (Ondansetron) 4 mg Route: IVP; Site: right antecubital; ch5 13:29 Follow up: Response: No adverse reaction sl2 13:57 Not Given (Patient Refused): Flomax (tamsulosin) 0.4 mg PO once sl2 Disposition: 03/24 08:48 Co-signature as Attending Physician, Madhavi Newman MD I agree with the assessment and sp3 plan of care. Disposition Summary: 03/23/21 13:35 Discharge Ordered Location: Home pm1 Problem: new pm1 Symptoms: have improved pm1 Condition: Stable pm1 Diagnosis - Calculus of kidney with calculus of ureter pm1 - Abdominal pain, unspecified pm1 Followup: pm1 - With: Emergency Department - When: As needed - Reason: Worsening of condition Followup: pm1 - With: Geovany Portillo MD - When: 2 - 3 days - Reason: Recheck today's complaints, Continuance of care, Re-evaluation by your physician Discharge Instructions: - Abdominal Pain, Adult pm1 - Kidney Stones pm1 - Discharge Summary Sheet tw2 - Dietary Guidelines to Help Prevent Kidney Stones pm1 Forms: - Work release form tw2 - Medication Reconciliation Form pm1 - Thank You Letter pm1 - Antibiotic Education pm1 - Prescription Opioid Use pm1 Prescriptions: - Flomax 0.4 mg Oral capsule - take 1 capsule by ORAL route once daily 1/2 hour following the same meal each pm1 day; 10 capsule; Refills: 0, Product Selection Permitted - Tramadol 50 mg Oral Tablet - take 1 tablet by ORAL route every 8 hours as needed; 12 tablet; Refills: 0, pm1 Product Selection Permitted Signatures: Dispatcher [employer] EDMS Yajaira Owen RN RN aa5 Vinny Del Rio NP TOUR CONDUCTOR pm1 Madhavi Newman MD MD sp3 Marlon Reis RN RN ch5 Jaz Grant RN RN sl2
[2021-03-23 14:36] VITALS: O2SAT 99
[2021-03-23 14:39] VITALS: BP 109/82; TEMP 97.9
== END 2021-03-23 13:59 | disposition home or self-care (01) ==
LOC: ER 09:37
DX: N20.2 Calculus of kidney with calculus of ureter (principal); K59.00 Constipation, unspecified; F17.210 Nicotine dependence, cigarettes, uncomplicated
CPT/HCPCS: 96361; 87088; 85025; 87086; 80048; 36415; 81025; 85610; 80076; 83690; 74177; 96375; 96374; 99284; Q9967; J7030; J2405; 81003; 81015

== ENCOUNTER 2021-06-19 15:35 | Emergency (ER) | payer BC ==
--- OUTSIDE RECORDS SUMMARY | 2021-06-19 15:50 | XMS REPORT | Continuity of Care Document ---
:1980 Author Organization [facility] t Address [address] [place] [address] Care Team Providers Name Role Phone MAXIMILIANO_RIANNA_Yogesh_Hector Attending Clinician Unavailable MAXIMILIANO_ALYSON_Whitney Attending Clinician Unavailable Jovon Zuñiga Attending Clinician [phone] MAXIMILIANO_RIANNA_Whitney Admitting Clinician Unavailable MAXIMILIANO_ALYSON_Whitney Admitting Clinician Unavailable Payers Payer Name Policy Type Policy Number Effective Date Expiration Date S forest [facility] [id number] 2019 00:00:00 Problems This patient has no known problems. Allergies, Adverse Reactions, Alerts This patient has no known allergies or adverse reactions. Medications This patient has no known medications. Procedures This patient has no known procedures. Encounters Start End Encounter Admission Attending Care Care Encounter Source Date/Time Date/Time Type Type Clinicians Facility Department ID 2021-06-09 2021-06-09 [facility] [id number] [facility] 02:02:00 02:02:00 Whitney [id number] Medic al 2021-05-13 2021-05-13 [facility] [id number] [facility] 01:01:00 01:01:00 Whitney [id number] Medic al 2020-09-30 2020-09-30 [facility]patient [facility] [id number] [facility] 09:49:00 09:49:00 _Whitney [id number] [facility] 2020-09-29 2020-09-29 Outpatient [facility] PRIV [id number] [facility] 01:56:00 01:56:00 Ralph [id number] [facility] 2020-09-23 2020-09-23 Outpatient [facility] PRIV [id number] [facility] 11:40:00 11:40:00 Whitney [id number] Medic al 2020-09-23 2020-09-23 Outpatient Yogesh, PRIV PRIV [id number] [id number] 00:00:00 00:00:00 Avel [id number] Jovon [id number] 2020-09-22 2020-09-22 Outpatient [facility] PRIV [id number] [facility] 01:58:00 01:58:00 _Whitney [id number] [place] [facility] 2020-09-18 2020-09-18 Outpatient [facility] PRIV [id number] [facility] 01:19:00 01:19:00 _Whitney [id number] [place] [facility] 2020-09-17 2020-09-17 Outpatient [facility] PRIV [id number] [facility] 12:09:00 12:09:00 Whitney [id number] Medic al 2020-09-12 2020-09-12 Outpatient [facility] PRIV [id number] [facility] 04:00:00 04:00:00 Whitney [id number] Medic al 2020-09-09 2020-09-09 Outpatient [facility] PRIV [id number] [facility] 12:29:00 12:29:00 Whitney [id number] Medic al Results This patient has no known results.
[2021-06-19] MEDS ORDERED: NA CHLORIDE 0.9% 1,000 ML ONE (16:37)
[2021-06-19] MEDS ORDERED: KETOROLAC 30 MG/ML INJ ONE (16:37)
[2021-06-19 16:53] LABS: Absolute Lymphocytes (CBC) 2.8 K/uL (0.7-4.9); Hematocrit 42.4 % (36.0-45.0); Lymphocytes % 34.7 % (15.3-44.8); MPV 6.2 fL (7.6-11.3)
[2021-06-19 17:11] LABS: ALT/SGPT 40 U/L (12-78); AST/SGOT 13 U/L (15-37); Albumin 3.4 g/dL (3.4-5.0); Alkaline Phosphatase 118 U/L (45-117); BUN Blood Urea Nitrogen 15 mg/dL (7-18); Bicarbonate 29 mmol/L (21-32); Bilirubin Direct < 0.1 mg/dL (0-0.2); Bilirubin Total 0.3 mg/dL (0.2-1.0); Glucose Level 104 mg/dL (74-106); Lipase 103 U/L (73-393); Potassium 4.1 mmol/L (3.5-5.1); Protein, Total 7.1 g/dL (6.4-8.2); Sodium Level 136 mmol/L (136-145)
[2021-06-19 17:19] LABS: Urine Blood Trace-intact (Negative); Urine Glucose Negative (Negative); Urine Protein Negative (Negative); Urine Specific Gravity 1.015 (1.005-1.030); Urine pH 6.5 (5.0-7.0)
--- NOTE | 2021-06-19 17:19 | RAD REPORT ---
EXAM DESCRIPTION: CTStone Protocol - 06/19/2021 5:00 pm CLINICAL HISTORY: left low back pain COMPARISON: Abdomen Pelvis W Contrast dated 03/23/2021 TECHNIQUE: CT of the abdomen and pelvis was performed. All CT scans are performed using dose optimization technique as appropriate and may include automated exposure control or mA/KV adjustment according to patient size. FINDINGS: Lower chest: No acute abnormality. Liver: Too small characterize lesion in the left hepatic lobe is statistically benign. Biliary: No biliary ductal dilatation. Stomach: No significant focal abnormality. Duodenum: No significant focal abnormality. Pancreas: No significant abnormality. Spleen: No significant abnormality. Adrenal: No suspicious lesions. Kidney/ureter: No hydronephrosis. Bilateral nonobstructing stones present. Several phleboliths are pr esent along the course of the left ureter but no a definite ureteral stone identified. Retroperitoneum: No retroperitoneal adenopathy. Vascular: No aneurysm. Bowel: No significant focal abnormality. Normal appendix. Peritoneum: No ascites or free air. Tiny umbilical hernia containing a small portion of the anterior wall of the small bowel. No evidence of incarceration or strangulation. A similar finding was present on the CT from 03/23/2021. Bladder: Grossly unremarkable. Reproductive: No adnexal masses. Tubal ligation. Bones: No acute fracture. Disc bulge present at L4-5 Other: n/a IMPRESSION: No acute intra-abdominal or pelvic finding. Bilateral nonobstructive nephrolithiasis.
[2021-06-19 17:41] LABS: Urine Bacteria <20 /HPF (<20); Urine Mucus 1+ /HPF (NONE SEEN); Urine RBC <5 /HPF (NONE SEEN)
[2021-06-19 17:52] LABS: Urine Specific Gravity/Preg 1.015 (1.005-1.030)
--- NOTE | 2021-06-19 18:02 | EDPHYS ---
Physician Documentation [facility] Name: Christiane Lyles Age: 40 yrs Sex: Female : 1980 Arrival Date: 06/19/2021 Time: 15:36 Bed 24 Private MD: Fritz Wiggins E ED Physician Ronaldo Chaparro HPI: 06/19 16:27 This 40 yrs old Female presents to ER via Ambulatory with complaints of Left cp Low Back Pain. 16:27 Onset: The symptoms/episode began/occurred suddenly, today. cp 16:27 The patient presents with pain that is acute, with no known mechanism of injury. cp 16:27 The symptoms are located in the left low back. The pain does not radiate. The problem cp was sustained from unknown cause. Associated signs and symptoms: Pertinent negatives: abdominal pain, chest pain, dysuria, fever, incontinence, numbness, tingling, weakness. Severity of symptoms: in the emergency department the symptoms are unchanged, despite home interventions. 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 - Social history:: Smoking status: Patient reports the use of cigarette tobacco products, smokes one-half pack cigarettes per day. ROS: 16:29 Eyes: Negative for injury, pain, redness, and discharge. cp 16:29 Constitutional: Negative for body aches, chills, fever. 16:29 Cardiovascular: Negative for chest pain, edema, palpitations. 16:29 Respiratory: Negative for cough, shortness of breath, wheezing. 16:29 Abdomen/GI: Negative for vomiting, diarrhea, constipation. 16:29 Back: Positive for pain at rest, of the left low back, Negative for injury or acute deformity, decreased range of motion. 16:29 Neuro: Negative for altered mental status, headache, weakness. 16:29 All other systems are negative. Exam: 16:31 Head/Face: Normocephalic, atraumatic. cp 16:31 Constitutional: The patient appears in no acute distress, alert, awake, non-toxic, well developed, well nourished, obese. 16:31 Eyes: Periorbital structures: appear normal, Conjunctiva: normal, no exudate, no injection, Sclera: no appreciated abnormality, Lids and lashes: appear normal, bilaterally. 16:31 ENT: External ear(s): are unremarkable, Nose: is normal, Posterior pharynx: Airway: no evidence of obstruction, patent. 16:31 Chest/axilla: Inspection: normal. 16:31 Cardiovascular: Rate: normal. 16:31 Respiratory: the patient does not display signs of respiratory distress, Respirations: normal, no use of accessory muscles, no retractions. 16:31 Abdomen/GI: Exam negative for discomfort, distension, guarding, Inspection: abdomen appears normal. 16:31 Back: pain, that is moderate, of the left low back, ROM is normal, CVA tenderness, is absent, vertebral tenderness, is not appreciated. 16:31 Neuro: Orientation: to person, place \T\ time. Mentation: is normal, Motor: moves all fours, strength is normal, Sensation: is normal. Vital Signs: 15:43 BP 117 / 80; Pulse 77; Resp 18; Temp 97.1; Pulse Ox 97% ; Weight 90.72 kg; Height 5 ft. ll1 2 in. (157.48 cm); Pain 7/10; 16:20 BP 111 / 84; Pulse 80; Resp 14 S; Pulse Ox 99% on R/A; jg9 18:00 BP 91 / 70; Pulse 14; Resp 98 S; Pulse Ox 99% on R/A; jg9 15:43 Body Mass Index 36.58 (90.72 kg, 157.48 cm) ll1 MDM: 16:18 Patient medically screened. wisam 17:00 Differential diagnosis: fracture, sciatica, Herniated disc UTI, kidney stone. cp 17:52 ED course: inquiry of [place] prescription monitor website shows patient prescribed cp clonazepam 0.5mg #60 on 05-25-2021. 17:57 ED course: Patient reports pain markedly improved. Will discharge to home for continued cp monitoring. 18:00 Data reviewed: vital signs, nurses notes, lab test result(s), radiologic studies, CT cp scan, and as a result, I will discharge patient. 06/19 16:14 Order name: Urine Microscopic Only; Complete Time: 17:47 cp 06/19 17:47 Interpretation: Normal except: SQEPI 10-20. cp 06/19 16:28 Order name: Basic Metabolic Panel; Complete Time: 17:47 cp 06/19 17:47 Interpretation: Normal except: GFR 70. cp 06/19 16:28 Order name: CBC with Diff; Complete Time: 17:47 cp 06/19 17:47 Interpretation: Normal except: RBC 4.90; MPV 6.2; EOSINOPHIL % 5.4. cp 06/19 16:28 Order name: Hepatic Function; Complete Time: 17:47 cp 06/19 16:28 Order name: Lipase; Complete Time: 17:47 cp 06/19 17:19 Order name: Urine Dipstick-Ancillary; Complete Time: 17:47 EDMS 06/19 15:57 Order name: Urine Dipstick-Ancillary (obtain specimen); Complete Time: 18:02 kb 06/19 16:14 Order name: Urine Test (obtain specimen); Complete Time: 18:02 cp 06/19 16:28 Order name: CT Stone Protocol; Complete Time: 17:47 cp 06/19 17:28 Order name: Urine --Ancillary (enter results); Complete Time: 17:57 eb 06/19 17:57 Interpretation: Reviewed. cp 06/19 16:28 Order name: IV Saline Lock; Complete Time: 16:52 cp 06/19 16:28 Order name: Labs collected and sent; Complete Time: 16:52 cp Administered Medications: 16:50 Drug: Ketorolac 15 mg Route: IVP; Site: left antecubital; jg9 17:30 Follow up: Response: No adverse reaction; Adverse reaction, Physician notified jg9 16:50 Drug: NS 0.9% 500 ml Route: IV; Rate: bolus; Site: left antecubital; jg9 17:57 Follow up: IV Status: Completed infusion; IV Intake: 500ml jg9 18:02 Follow up: IV Status: Completed infusion; IV Intake: 500ml jg9 17:57 Drug: NS 0.9% 500 ml Route: IV; Rate: 250 ml/hr; Site: left antecubital; jg9 18:20 Follow up: IV Status: Completed infusion; IV Intake: 250ml jg9 18:18 Drug: Lidoderm Patch 5 % (700 mg/patch) 1 patches {Note: left lower back-5% lido patch jg9 not available.} Route: Topical; Site: affected area; 18:21 Follow up: Response: Medication administered at discharge. jg9 Point of Care Testing: Urine : 17:15 hCG Reading: Negative; Control Reading: Positive; jg9 Disposition Summary: 06/19/21 18:01 Discharge Ordered Location: Home cp Problem: new cp Symptoms: have improved cp Condition: Stable cp Diagnosis - Low back pain - left cp Followup: cp - With: Private Physician - When: 2 - 3 days - Reason: Recheck today's complaints Discharge Instructions: - Discharge Summary Sheet cp - Acute Back Pain, Adult cp - Heat Therapy cp - Back Exercises cp Forms: - Medication Reconciliation Form cp - Thank You Letter cp - Antibiotic Education cp - Prescription Opioid Use cp Prescriptions: - Lidoderm 5 % Topical adhesive patch,medicated - apply 1 patch by TRANSDERMAL route once daily; 1 box; Refills: 0, Product cp Selection Permitted - Cyclobenzaprine 10 mg Oral Tablet - take 1 tablet by ORAL route every 8 hours As needed; 30 tablet; Refills: 0, cp Product Selection Permitted - Medrol (Ayden) 4 mg Oral Tablets, Dose Pack - take 1 tablet by ORAL route as directed - follow package instructions; 1 cp packet; Refills: 0, Product Selection Permitted Addendum: 06/21/2021 07:09 Co-signature as Attending Physician, Ronaldo Chaparro MD I agree with the assessment and c ignacio plan of care. Signatures: Dispatcher [employer] Odalys Martínez, BRICK BAKER-C BRICK BAKER-Ronaldo Almeida MD MD cha Page, Corey PA PA cp Tamir Chirinos, RN RN ll1 Bijal Jorge RN RN jg9 Corrections: (The following items were deleted from the chart) 06/19 15:43 15:43 Social history: Smoking status: Patient denies any tobacco usage or history of. ll1 ll1 17:47 17:47 Normal except: RBC 4.90; MPV 6.2. cp cp
--- NOTE | 2021-06-19 18:02 | ER ---
Nurse's Notes [facility] Name: Christiane Lyles Age: 40 yrs Sex: Female : 1980 Arrival Date: 06/19/2021 Time: 15:36 Bed 24 Private MD: Fritz Wiggins E Diagnosis: Low back pain-left Presentation: 06/19 15:43 Chief complaint: Patient states: L lower back pain for 1 day. Believes her kidney hurts ll1 from dehydration. Had "stomach virus" since Tuesday. Only urinating 2-3 times daily. No fever. Coronavirus screen: Vaccine status: Patient reports receiving the 2nd dose of the covid vaccine. At this time, the client does not indicate any symptoms associated with coronavirus-19. Ebola Screen: Patient denies travel to an Ebola-affected area in the 21 days before illness onset. Initial Sepsis Screen: Does the patient meet any 2 criteria? No. Patient's initial sepsis screen is negative. Does the patient have a suspected source of infection? No. Patient's initial sepsis screen is negative. Risk Assessment: Do you want to hurt yourself or someone else? Patient reports no desire to harm self or others. Onset of symptoms was June 17, 2021. 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 - Social history:: Smoking status: Patient reports the use of cigarette tobacco products, smokes one-half pack cigarettes per day. Screenin:28 Abuse screen: Denies threats or abuse. Denies injuries from another. Nutritional jg9 screening: No deficits noted. Tuberculosis screening: No symptoms or risk factors identified. Fall Risk None identified. Assessment: 16:27 General: Appears in no apparent distress. Behavior is calm. Pain: Complains of pain in jg9 abdomen-left flank. Vital Signs: 15:43 BP 117 / 80; Pulse 77; Resp 18; Temp 97.1; Pulse Ox 97% ; Weight 90.72 kg; Height 5 ft. ll1 2 in. (157.48 cm); Pain 7/10; 16:20 BP 111 / 84; Pulse 80; Resp 14 S; Pulse Ox 99% on R/A; jg9 18:00 BP 91 / 70; Pulse 14; Resp 98 S; Pulse Ox 99% on R/A; jg9 15:43 Body Mass Index 36.58 (90.72 kg, 157.48 cm) ll1 ED Course: 15:36 Patient arrived in ED. am2 15:36 Fritz Wiggins MD is Private Physician. am2 15:42 Arm band placed on. ll1 15:45 Triage completed. ll1 16:12 Patient placed in an exam room, on a stretcher. ll1 16:13 Ronaldo Horner PA is PHCP. cp 16:13 Ronaldo Chaparro MD is Attending Physician. cp 16:21 Bijal Jorge, JOON is Primary Nurse. jg9 16:29 Patient has correct armband on for positive identification. Bed in low position. Call jg9 light in reach. 16:45 Inserted saline lock: 22 gauge in left antecubital area, using aseptic technique. jg9 17:00 CT Stone Protocol In Process Unspecified. EDMS 18:27 No provider procedures requiring assistance completed. jg9 18:28 IV discontinued. jg9 Administered Medications: 16:50 Drug: Ketorolac 15 mg Route: IVP; Site: left antecubital; jg9 17:30 Follow up: Response: No adverse reaction; Adverse reaction, Physician notified jg9 16:50 Drug: NS 0.9% 500 ml Route: IV; Rate: bolus; Site: left antecubital; jg9 17:57 Follow up: IV Status: Completed infusion; IV Intake: 500ml jg9 18:02 Follow up: IV Status: Completed infusion; IV Intake: 500ml jg9 17:57 Drug: NS 0.9% 500 ml Route: IV; Rate: 250 ml/hr; Site: left antecubital; jg9 18:20 Follow up: IV Status: Completed infusion; IV Intake: 250ml jg9 18:18 Drug: Lidoderm Patch 5 % (700 mg/patch) 1 patches {Note: left lower back-5% lido patch jg9 not available.} Route: Topical; Site: affected area; 18:21 Follow up: Response: Medication administered at discharge. jg9 Point of Care Testing: Urine : 17:15 hCG Reading: Negative; Control Reading: Positive; jg9 Intake: 17:57 IV: 500ml; Total: 500ml. jg9 18:02 IV: 500ml; Total: 1000ml. jg9 18:20 IV: 250ml; Total: 1250ml. jg9 Outcome: 18:01 Discharge ordered by MD. cp 18:27 Discharged to home ambulatory. jg9 18:27 Condition: stable 18:27 Discharge instructions given to patient, Instructed on discharge instructions, follow up and referral plans. Demonstrated understanding of instructions, follow-up care, Prescriptions given X 3. 18:28 Patient left the ED. jg9 Signatures: Dispatcher [employer] EDMS Ronaldo Horner PA PA cp Moreno, Amanda am2 Tamir Chirinos RN RN ll1 Bijal Jorge RN RN jg9 Corrections: (The following items were deleted from the chart) 15:43 15:43 Social history: Smoking status: Patient denies any tobacco usage or history of. ll1 ll1
[2021-06-19] MEDS ORDERED: LIDOCAINE 4% PATCH ONE (18:19)
[2021-06-19 18:42] VITALS: TEMP 97.1
[2021-06-19 18:56] VITALS: O2SAT 99
[2021-06-19 18:57] VITALS: BP 91/70
== END 2021-06-19 18:28 | disposition home or self-care (01) ==
LOC: ER 15:35
DX: M54.50 Low back pain, unspecified (principal); F17.210 Nicotine dependence, cigarettes, uncomplicated
CPT/HCPCS: 96361; 85025; 80048; 36415; 81025; 80076; 83690; 76377; 74176; 96374; 99284; J7040; 81003; 81015

== ENCOUNTER 2021-09-08 15:36 | Emergency (ER) | payer BC ==
--- OUTSIDE RECORDS SUMMARY | 2021-09-08 15:39 | XMS REPORT | Continuity of Care Document ---
:1980 Author Organization [facility] t Address [address] [place] [address] Care Team Providers Name Role Phone MAXIMILIANO_RIANNA_Yogesh_Hector Attending Clinician Unavailable MAXIMILIANO_ALYSON_Whitney Attending Clinician Unavailable Jovon Zuñiga Attending Clinician [phone] MAXIMILIANO_RIANNA_Whitney Admitting Clinician Unavailable MAXIMILIANO_ALYSON_Whitney Admitting Clinician Unavailable Payers Payer Name Policy Type Policy Number Effective Date Expiration Date S forest [facility] [id number] 2019-10-29 00:00:00 Problems This patient has no known problems. Allergies, Adverse Reactions, Alerts This patient has no known allergies or adverse reactions. Medications This patient has no known medications. Procedures This patient has no known procedures. Encounters Start End Encounter Admission Attending Care Care Encounter Source Date/Time Date/Time Type Type Clinicians Facility Department ID 2021-09-07 2021-09-07 [facility]patient [facility] [id number] [facility] 04:34:00 04:34:00 Whitney [id number] Medic al 2021-07-09 2021-07-09 Outpatient [facility] PRIV [id number] [facility] 11:40:00 11:40:00 Whitney [id number] Medic al 2021-06-09 2021-06-09 Outpatient [facility] PRIV [id number] [facility] 02:02:00 02:02:00 Whitney [id number] Medic al 2021-05-13 2021-05-13 Outpatient [facility] PRIV [id number] [facility] 01:01:00 01:01:00 Whitney [id number] Medic al 2020-09-30 2020-09-30 [facility]patient [facility] PRIV [id number] [facility] 09:49:00 09:49:00 _Yogesh_Hector [id number] [facility] 2020-09-29 2020-09-29 Outpatient [facility] PRIV [id number] [facility] 01:56:00 01:56:00 _Whitney [id number] [facility] 2020-09-23 2020-09-23 Outpatient [facility] PRIV [id number] [facility] 11:40:00 11:40:00 Yogesh_Hector [id number] Medic al 2020-09-23 2020-09-23 Outpatient Yogesh, PRIV PRIV [id number] 00:00:00 00:00:00 Avel [id number] Jovon [id number] 2020-09-22 2020-09-22 Outpatient [facility] PRIV [id number] [facility] 01:58:00 01:58:00 _Whitney [id number] [facility] 2020-09-18 2020-09-18 Outpatient [facility] PRIV [id number] [facility] 01:19:00 01:19:00 _Whitney [id number] [facility] 2020-09-17 2020-09-17 Outpatient [facility] PRIV [id number] [facility] 12:09:00 12:09:00 Whitney [id number] Medic al 2020-09-12 2020-09-12 Outpatient [facility] PRIV [id number] [facility] 04:00:00 04:00:00 Yogesh_Hector [id number] Medic al 2020-09-09 2020-09-09 Outpatient [facility] PRIV [id number] [facility] 12:29:00 12:29:00 Yogesh_Hector [id number] Medic al Results This patient has no known results.
--- NOTE | 2021-09-08 19:36 | ER ---
Nurse's Notes [facility] Name: Christiane Lyles Age: 40 yrs Sex: Female : 1980 Arrival Date: 09/08/2021 Time: 15:39 Bed Waiting Private MD: Diagnosis: Presentation: 09/08 16:09 Chief complaint: Patient states: she started having abdominal pain, which feels like ap3 she is being clawed from the inside. patient reports vomiting approx 5 times today. Patient complains of severe abdominal pain in the mid lower region. Coronavirus screen: At this time, the client does not indicate any symptoms associated with coronavirus-19. Ebola Screen: No symptoms or risks identified at this time. Initial Sepsis Screen: Does the patient meet any 2 criteria? No. Patient's initial sepsis screen is negative. Does the patient have a suspected source of infection? No. Patient's initial sepsis screen is negative. Risk Assessment: Do you want to hurt yourself or someone else? Patient reports no desire to harm self or others. Onset of symptoms was September 08, 2021 at 12:00. 16:09 Method Of Arrival: Ambulatory ap3 16:09 Acuity: SAROJ 3 ap3 Triage Assessment: 16:12 General: Appears uncomfortable, Behavior is anxious, restless. Pain: Complains of pain ap3 in suprapubic area Pain currently is 10 out of 10 on a pain scale. Pain began 4 hours ago. Neuro: Level of Consciousness is awake, alert, obeys commands, Oriented to person, place, time, situation, Gait is steady, Speech is normal. Cardiovascular: Patient's skin is warm and dry. Respiratory: Airway is patent Respiratory effort is even, unlabored. GI: Reports lower abdominal pain, nausea, vomiting. 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 - Social history:: Smoking status: Patient reports the use of cigarette tobacco products, smokes one-half pack cigarettes per day. Screenin:13 Abuse screen: Denies threats or abuse. Nutritional screening: No deficits noted. ap3 Tuberculosis screening: No symptoms or risk factors identified. Assessment: 19:26 Reassessment: called to triage for reassessment. No answer. Unable to locate patient x ss 3. Vital Signs: 16:09 BP 127 / 78; Pulse 69; Resp 17; Temp 97.5; Pulse Ox 99% ; Weight 104.33 kg; Height 5 ap3 ft. 2 in. (157.48 cm); Pain 10/10; 16:09 Body Mass Index 42.07 (104.33 kg, 157.48 cm) ap3 ED Course: 15:39 Patient arrived in ED. mr 16:04 Vinny Del Rio NP is PHCP. pm1 16:04 Ronaldo Chaparro MD is Attending Physician. pm1 16:11 Triage completed. ap3 16:13 Arm band placed on right wrist. ap3 19:27 No provider procedures requiring assistance completed. Patient did not have IV access ss during this emergency room visit. Administered Medications: No medications were administered Outcome: 19:27 Eloped from waiting room. ss 19:36 Patient left the ED. ss Signatures: Iris Mcgee mr DawkinsSheba, RN JOON ss Vinny Del Rio, ZIYAD CONCRETE POINTER pm1 Brigida Marks RN RN ap3
[2021-09-09 03:07] VITALS: BP 127/78; TEMP 97.5; O2SAT 99
== END 2021-09-08 19:36 | disposition left against medical advice (07) ==
LOC: ER 15:36
DX: Z53.21 Procedure and treatment not carried out due to patient leaving prior to being seen by health care provider (principal)
CPT/HCPCS: 99281

== ENCOUNTER 2022-02-05 10:50 | Emergency (ER) | payer OTHER ==
[2022-02-05 12:19] LABS: Absolute Lymphocytes (CBC) 2.8 K/uL (0.7-4.9); Hematocrit 45.8 % (36.0-45.0); Lymphocytes % 32.9 % (15.3-44.8); MCV 85.2 fL (80-100); MPV 6.7 fL (7.6-11.3); RBC Red Blood Cell Count 5.37 M/uL (3.86-4.86)
--- NOTE | 2022-02-05 12:22 | RAD REPORT ---
EXAM DESCRIPTION: RAD - Chest Single View - 02/05/2022 12:12 pm CLINICAL HISTORY: PAIN Chest pain. COMPARISON: Chest Pa And Lat (2 Views) dated 08/24/2021; Chest Single View dated 03/16/2021; Chest Si ngle View dated 02/02/2018 FINDINGS: Portable technique limits examination quality. The lungs are grossly clear. The heart is normal in size. No displaced fractures. IMPRESSION: No acute intrathoracic process suspected.
[2022-02-05] MEDS ORDERED: ASPIRIN 81 MG CHEWABLE TABLET ONE (12:23)
[2022-02-05 12:42] LABS: Troponin High Sensitivity 7.9 pg/mL (<58.9)
[2022-02-05 12:47] LABS: Potassium 3.9 mmol/L (3.5-5.1)
--- NOTE | 2022-02-05 13:02 | EDPHYS ---
Physician Documentation [facility] Name: Christiane Rubio Age: 41 yrs Sex: Female : 1980 Arrival Date: 02/05/2022 Time: 10:52 Bed 14 Private MD: Ronaldo Haywood HPI: 02/05 13:00 This 41 yrs old Female presents to ER via Ambulatory with complaints of Chest jl9 Tightness, Weakness. Patient reports having an episode of chest pain earlier today that has since resolved. Patient called her PCP and was told to come in for evaluation. . 13:00 Onset: The symptoms/episode began/occurred this morning. Associated signs and symptoms: jl9 The patient has no apparent associated signs or symptoms. Modifying factors: The patient symptoms are alleviated by nothing, the patient symptoms are aggravated by nothing. The patient has not experienced similar symptoms in the past. 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 - Social history:: Smoking status: Patient denies any tobacco usage or history of. ROS: 13:00 Constitutional: Negative for fever, chills, and weight loss, Eyes: Negative for injury, jl9 pain, redness, and discharge, ENT: Negative for injury, pain, and discharge, Neck: Negative for injury, pain, and swelling. 13:00 Respiratory: Negative for shortness of breath, cough, wheezing, and pleuritic chest pain, Abdomen/GI: Negative for abdominal pain, nausea, vomiting, diarrhea, and constipation, Back: Negative for injury and pain, : Negative for injury, bleeding, discharge, and swelling, MS/Extremity: Negative for injury and deformity, Skin: Negative for injury, rash, and discoloration, Neuro: Negative for headache, weakness, numbness, tingling, and seizure, Psych: Negative for depression, anxiety, suicide ideation, homicidal ideation, and hallucinations, Allergy/Immunology: Negative for hives, rash, and allergies, Endocrine: Negative for neck swelling, polydipsia, polyuria, polyphagia, and marked weight changes, Hematologic/Lymphatic: Negative for swollen nodes, abnormal bleeding, and unusual bruising. 13:00 Cardiovascular: Positive for chest pain. Exam: 13:01 Constitutional: This is a well developed, well nourished patient who is awake, alert, jl9 and in no acute distress. Head/Face: Normocephalic, atraumatic. Eyes: Pupils equal round and reactive to light, extra-ocular motions intact. Lids and lashes normal. Conjunctiva and sclera are non-icteric and not injected. Cornea within normal limits. Periorbital areas with no swelling, redness, or edema. ENT: Mucous membranes moist. Neck: Trachea midline, no thyromegaly or masses palpated, and no cervical lymphadenopathy. Supple, full range of motion without nuchal rigidity, or vertebral point tenderness. No Meningismus. Chest/axilla: Normal chest wall appearance and motion. Nontender with no deformity. No lesions are appreciated. Cardiovascular: Regular rate and rhythm with a normal S1 and S2. No gallops, murmurs, or rubs. Normal PMI, no JVD. No pulse deficits. Respiratory: Lungs have equal breath sounds bilaterally, clear to auscultation and percussion. No rales, rhonchi or wheezes noted. No increased work of breathing, no retractions or nasal flaring. Abdomen/GI: Soft, non-tender, with normal bowel sounds. No distension or tympany. No guarding or rebound. No evidence of tenderness throughout. Back: No spinal tenderness. No costovertebral tenderness. Full range of motion. Skin: Warm, dry with normal turgor. Normal color with no rashes, no lesions, and no evidence of cellulitis. MS/ Extremity: Pulses equal, no cyanosis. Neurovascular intact. Full, normal range of motion. Neuro: Awake and alert, GCS 15, oriented to person, place, time, and situation. Cranial nerves II-XII grossly intact. Motor strength 5/5 in all extremities. Sensory grossly intact. Cerebellar exam normal. Normal gait. Psych: Awake, alert, with orientation to person, place and time. Behavior, mood, and affect are within normal limits. Vital Signs: 11:06 BP 143 / 71; Pulse 80; Resp 16; Temp 98.0(TE); Pulse Ox 100% on R/A; Weight 99.79 kg bm7 (R); Height 5 ft. 3 in. (160.02 cm); Pain 5/10; 12:20 BP 119 / 84; Pulse 82; Resp 16; Pulse Ox 99% ; Pain 3/10; ss 13:00 BP 127 / 89; Pulse 80; Resp 17; Pain 0/10; ss 11:06 Body Mass Index 38.97 (99.79 kg, 160.02 cm) bm7 MDM: 11:29 Patient medically screened. 13:01 Data reviewed: vital signs, nurses notes, EKG. Counseling: I had a detailed discussion with the patient and/or guardian regarding: the historical points, exam findings, and any diagnostic results supporting the discharge/admit diagnosis, lab results, radiology results, the need for outpatient follow up, to return to the emergency department if symptoms worsen or persist or if there are any questions or concerns that arise at home. 13:01 Test interpretation: by ED physician or midlevel provider: ECG. 02/05 11:29 Order name: Basic Metabolic Panel; Complete Time: 12:54 02/05 11:29 Order name: CBC with Diff; Complete Time: 12:26 02/05 11:29 Order name: Troponin HS; Complete Time: 12:54 02/05 11:29 Order name: XRAY Chest (1 view); Complete Time: 12:26 02/05 11:29 Order name: EKG; Complete Time: 11:30 02/05 11:29 Order name: Cardiac monitoring; Complete Time: 11:59 02/05 11:29 Order name: EKG - Nurse/Tech; Complete Time: 11:59 02/05 11:29 Order name: IV Saline Lock 02/05 11:29 Order name: Labs collected and sent 02/05 11:29 Order name: O2 Per Protocol; Complete Time: 11:59 02/05 11:29 Order name: O2 Sat Monitoring; Complete Time: 11:59 Administered Medications: 12:17 Drug: Aspirin Chewable Tablet 324 mg Route: PO; ss Disposition Summary: 02/05/22 13:02 Discharge Ordered Location: Home jl9 Condition: Stable jl9 Diagnosis - Chest pain, unspecified jl9 Followup: jl9 - With: Private Physician - When: 1 - 2 days - Reason: Recheck today's complaints, Continuance of care, Re-evaluation by your physician Discharge Instructions: - Discharge Summary Sheet jl9 - Nonspecific Chest Pain, Adult, [id number] jl9 Forms: - Medication Reconciliation Form jl9 - Thank You Letter jl9 - Antibiotic Education jl9 - Prescription Opioid Use jl9 Signatures: Dispatcher [employer] EDSheba Sanders RN RN Lucretia King RN RN Kirby Garza jl9
--- NOTE | 2022-02-05 13:02 | ER ---
Nurse's Notes [facility] Name: Christiane Rubio Age: 41 yrs Sex: Female : 1980 Arrival Date: 02/05/2022 Time: 10:52 Bed 14 Private MD: Diagnosis: Chest pain, unspecified Presentation: 02/05 11:06 Chief complaint: Patient states: I started having chest pain this morning and tightness bm7 and I called my doctor and he told me to come in. Coronavirus screen: At this time, the client does not indicate any symptoms associated with coronavirus-19. Ebola Screen: No symptoms or risks identified at this time. 11:06 Method Of Arrival: Ambulatory bm7 11:07 Initial Sepsis Screen: Does the patient meet any 2 criteria? No. Patient's initial bm7 sepsis screen is negative. Does the patient have a suspected source of infection? No. Patient's initial sepsis screen is negative. Risk Assessment: Do you want to hurt yourself or someone else? Patient reports no desire to harm self or others. Onset of symptoms was February 05, 2022 at 08:00. 11:07 Acuity: SAROJ 2 bm7 Triage Assessment: 11:07 General: Appears in no apparent distress. uncomfortable, Behavior is anxious. Pain: bm7 Complains of pain in mid-sternal area Pain does not radiate. EENT: No deficits noted. No signs and/or symptoms were reported regarding the EENT system. Neuro: Reports weakness. Cardiovascular: Reports chest pain, lightheadedness, Capillary refill < 3 seconds Patient's skin is warm and dry. Chest pain is described as mild, quality is pressure, began 3 hours prior to arrival episodes are continuous. Respiratory: No deficits noted. Denies shortness of breath at rest, on exertion. GI: No deficits noted. No signs and/or symptoms were reported involving the gastrointestinal system. : No deficits noted. No signs and/or symptoms were reported regarding the genitourinary system. Derm: No deficits noted. No signs and/or symptoms reported regarding the dermatologic system. Musculoskeletal: No deficits noted. No signs and/or symptoms reported regarding the musculoskeletal system. VP BIOLOGY: 11:07 LMP N/A - Post-menopause bm7 Historical: - Allergies: 11: No Known Allergies; bm7 - Home Meds: 11:07 Klonopin Oral [Active]; Lamictal Oral [Active]; Lexapro Oral [Active]; Propranolol Oral bm7 [Active]; - PMHx: 11:07 Anxiety; Bipolar; CVA; Depression; bm7 - PSHx: 11:07 tubes tied; bm7 - Immunization history:: Adult Immunizations up to date, Client reports receiving the 2nd dose of the Covid vaccine, Client reports receiving the 1st dose of the Covid vaccine. - Social history:: Smoking status: Patient denies any tobacco usage or history of. Screenin:15 Abuse screen: Denies threats or abuse. Denies injuries from another. Nutritional ss screening: No deficits noted. Tuberculosis screening: No symptoms or risk factors identified. Fall Risk None identified. Assessment: 11:15 General: Appears in no apparent distress. comfortable, Behavior is calm, cooperative. ss 11:15 Pain: Complains of pain in mid-sternal area Pain currently is 3 out of 10 on a pain ss scale. Quality of pain is described as sharp, shooting, Pain began suddenly, Is intermittent, Aggravated by increased activity. Cardiovascular: No deficits noted. Denies diaphoresis, fatigue, lightheadedness, nausea, palpitations, shortness of breath, syncope, vomiting. 12:20 Reassessment: No changes from previously documented assessment. Patient and/or family ss updated on plan of care and expected duration. Pain level reassessed. Patient is alert, oriented x 3, equal unlabored respirations, skin warm/dry/pink. Vital Signs: 11:06 BP 143 / 71; Pulse 80; Resp 16; Temp 98.0(TE); Pulse Ox 100% on R/A; Weight 99.79 kg 7 (R); Height 5 ft. 3 in. (160.02 cm); Pain 5/10; 12:20 BP 119 / 84; Pulse 82; Resp 16; Pulse Ox 99% ; Pain 3/10; ss 13:00 BP 127 / 89; Pulse 80; Resp 17; Pain 0/10; ss 11:06 Body Mass Index 38.97 (99.79 kg, 160.02 cm) 7 ED Course: 10:52 Patient arrived in ED. rg4 11:07 Triage completed. bm7 11:07 Arm band placed on right wrist. bm7 11:07 Patient placed in waiting room, Patient notified of wait time. EKG completed in triage. bm7 Results shown to MD. 11:15 Bed in low position. Call light in reach. Side rails up X 1. ss 11:28 Kirby Richard is PHCP. jl9 11:28 Ronaldo Chaparro MD is Attending Physician. jl9 11:45 Bijal Brandon, RN is Primary Nurse. jh6 12:14 XRAY Chest (1 view) In Process Unspecified. EDMS 12:15 Inserted saline lock: 22 gauge in right forearm, using aseptic technique. Blood ss collected. 13:00 IV discontinued, intact, bleeding controlled, No redness/swelling at site. Pressure ss dressing applied. Administered Medications: 12:17 Drug: Aspirin Chewable Tablet 324 mg Route: PO; ss Outcome: 13:02 Discharge ordered by . [email or web address] 13:16 Patient left the ED. bd Signatures: Dispatcher [employer] EDMS Evita House Shelby, RN RN [facility] Mckenzie rg4 Lucretia Gimenez RN RN Bijal Rivera, RN RN [facility] Kirby Richard 9 Corrections: (The following items were deleted from the chart) 11:21 11:07 Acuity: SAROJ 3 bm7 bm7 13:19 13:18 IV discontinued, intact, bleeding controlled, No redness/swelling at site. ss Pressure dressing applied, ss
[2022-02-05 13:20] VITALS: BP 143/71; TEMP 98; O2SAT 100
--- NOTE | 2022-02-08 15:11 | EKG ---
Test Date: 2022-02-05 Test Time: 11:07:57 Social Media Sr Strategy Manager: MONROE MEASUREMENT RESULTS: Intervals: Rate: 104 LA: 152 QRSD: 80 QT: 316 QTc: 415 [place]: P: 72 LA: 152 QRS: 106 T: 29 INTERPRETIVE STATEMENTS: Sinus tachycardia Rightward axis Borderline ECG No previous ECG available for comparison Electronically Signed On 02-08-22 15:09:52 CDT by Pedro Mcqueen
== END 2022-02-05 13:16 | disposition home or self-care (01) ==
LOC: ER 10:50
DX: R07.89 Other chest pain (principal); F31.9 Bipolar disorder, unspecified
CPT/HCPCS: 36415; 71045; 80048; 84484; 85025; 93005; 99284

== ENCOUNTER 2023-05-05 09:27 | Emergency (ER) | payer BC ==
--- OUTSIDE RECORDS SUMMARY | 2023-05-05 09:30 | XMS REPORT | Continuity of Care Document ---
Author Name Unknown Address [address] [place] [address] [address] [place] [address] [facility] Address [address] [place] [address] [address] [place] [address] Care Team Providers Care Technical Spec Name Role Phone Referred, Self Attending Clinician Unavailable MAXIMILIANO_Alexi_Hector Attending Clinician Unavaila Avel Sanchez Attending Clinician [phone] MAXIMILIANO_ALYSON_Yogesh_J Attending Clinician Unavail able Referred, Self Admitting Clinician Unavailable Consuelo Admitting Clinician Unavaila sintia Bullard Admitting Clinician Unavail able Payers Payer Name Policy Type Policy Number Effective Date Expirati on Date Source [facility] [id number] 2019 00:00:00 Problems Condition Name Condition Details Condition Category Status Onset Date Resolution Date Last Treatment Date Treating Clinician Comments Source Cerebrovas cular accident Cerebrovas cular Accident Problem Active 08-20 00:00: 00 [facility] Mood disorder Mood Disorder Problem Active 08-20 00:00: 00 [facility] Anxiety Anxiety Problem Active 08-20 00:00: 00 [facility] Social History Smoking Status Start Date Stop Date Source Current Every Day Smoker [facility] Medications Ordered Medication Name Filled Medication Name Start Date Stop Date Current Medication? Ordering Clinician Indication Dosage Frequency Signature (SIG) Comments Components Source escitalopra m 20 mg tablet TAKE 1 TABLET BY MOUTH EVERY DAY escitalopra m 20 mg tablet TAKE 1 TABLET BY MOUTH EVERY DAY No escitalopr am 20 mg tablet TAKE 1 TABLET BY MOUTH EVERY DAY [facility] Advair Diskus 250 mcg-50 mcg/dose powder for inhalation INHALE 1 PUFFS BY MOUTH TWICE A DAY Advair Diskus 250 mcg-50 mcg/dose powder for inhalation INHALE 1 PUFFS BY MOUTH TWICE A DAY No Advair Diskus 250 mcg-50 mcg/dose powder for inhalation INHALE 1 PUFFS BY MOUTH TWICE A DAY [facility] albuterol sulfate HFA 90 mcg/actuati on aerosol inhaler INHALE 1 PUFF INTO THE LUNGS EVERY 4 HOURS FOR 30 DAYS albuterol sulfate HFA 90 mcg/actuati on aerosol inhaler INHALE 1 PUFF INTO THE LUNGS EVERY 4 HOURS FOR 30 DAYS No albuterol sulfate HFA 90 mcg/actuat ion aerosol inhaler INHALE 1 PUFF INTO THE LUNGS EVERY 4 HOURS FOR 30 DAYS [facility] azelastine 137 mcg (0.1 %) nasal spray aerosol 1-2 SPRAYS EACH NOSTRIL TWICE A DAY NEEDED FOR ALLERGIES azelastine 137 mcg (0.1 %) nasal spray aerosol 1-2 SPRAYS EACH NOSTRIL TWICE A DAY NEEDED FOR ALLERGIES No azelastine 137 mcg (0.1 %) nasal spray aerosol 1-2 SPRAYS EACH NOSTRIL TWICE A DAY NEEDED FOR ALLERGIES [facility] azithromyci n 250 mg tablet TAKE 2 TABLETS BY MOUTH TODAY, THEN TAKE 1 TABLET DAILY FOR 4 DAYS azithromyci n 250 mg tablet TAKE 2 TABLETS BY MOUTH TODAY, THEN TAKE 1 TABLET DAILY FOR 4 DAYS No azithromyc in 250 mg tablet TAKE 2 TABLETS BY MOUTH TODAY, THEN TAKE 1 TABLET DAILY FOR 4 DAYS [facility] benzonatate 100 mg capsule TAKE 1 CAPSULE BY MOUTH THREE TIMES A DAY FOR 10 DAYS NEEDED benzonatate 100 mg capsule TAKE 1 CAPSULE BY MOUTH THREE TIMES A DAY FOR 10 DAYS NEEDED No benzonatat e 100 mg capsule TAKE 1 CAPSULE BY MOUTH THREE TIMES A DAY FOR 10 DAYS NEEDED [facility] benzonatate 200 mg capsule TAKE 1 CAPSULE BY MOUTH THREE TIMES A DAY NEEDED FOR COUGH benzonatate 200 mg capsule TAKE 1 CAPSULE BY MOUTH THREE TIMES A DAY NEEDED FOR COUGH No benzonatat e 200 mg capsule TAKE 1 CAPSULE BY MOUTH THREE TIMES A DAY NEEDED FOR COUGH [facility] bromphenira mine-pseudo ephedrine-D M 2 mg-30 mg-10 mg/5 mL oral syrup TAKE 5 MILLILITERS BY MOUTH EVERY 6 HOURS FOR 10 DAYS bromphenira mine-pseudo ephedrine-D M 2 mg-30 mg-10 mg/5 mL oral syrup TAKE 5 MILLILITERS BY MOUTH EVERY 6 HOURS FOR 10 DAYS No bromphenir amine-pseu doephedrin e-DM 2 mg-30 mg-10 mg/5 mL oral syrup TAKE 5 MILLILITER S BY MOUTH EVERY 6 HOURS FOR 10 DAYS [facility] clonazepam 0.5 mg tablet TAKE 1 TABLET BY MOUTH TWICE A DAY clonazepam 0.5 mg tablet TAKE 1 TABLET BY MOUTH TWICE A DAY No clonazepam 0.5 mg tablet TAKE 1 TABLET BY MOUTH TWICE A DAY [facility] cyclobenzap rine 10 mg tablet TAKE 1 TABLET BY MOUTH EVERY 8 HOURS NEEDED FOR MUSCLE SPASMS cyclobenzap rine 10 mg tablet TAKE 1 TABLET BY MOUTH EVERY 8 HOURS NEEDED FOR MUSCLE SPASMS No cyclobenza julian 10 mg tablet TAKE 1 TABLET BY MOUTH EVERY 8 HOURS NEEDED FOR MUSCLE SPASMS [facility] doxepin 50 mg capsule TAKE 1 CAPSULE (50 MG) BY MOUTH DAILY AT BEDTIME doxepin 50 mg capsule TAKE 1 CAPSULE (50 MG) BY MOUTH DAILY AT BEDTIME No doxepin 50 mg capsule TAKE 1 CAPSULE (50 MG) BY MOUTH DAILY AT BEDTIME [facility] doxepin 75 mg capsule TAKE 1 CAPSULE (75 MG) BY MOUTH DAILY AT BEDTIME doxepin 75 mg capsule TAKE 1 CAPSULE (75 MG) BY MOUTH DAILY AT BEDTIME No doxepin 75 mg capsule TAKE 1 CAPSULE (75 MG) BY MOUTH DAILY AT BEDTIME [facility] doxycycline hyclate 100 mg capsule TAKE 1 CAPSULE TWICE A DAY BY ORAL ROUTE DIRECTED FOR 7 DAYS. doxycycline hyclate 100 mg capsule TAKE 1 CAPSULE TWICE A DAY BY ORAL ROUTE DIRECTED FOR 7 DAYS. No doxycyclin e hyclate 100 mg capsule TAKE 1 CAPSULE TWICE A DAY BY ORAL ROUTE DIRECTED FOR 7 DAYS. [facility] escitalopra m 20 mg tablet TAKE 1 TABLET BY MOUTH EVERY DAY escitalopra m 20 mg tablet TAKE 1 TABLET BY MOUTH EVERY DAY No escitalopr am 20 mg tablet TAKE 1 TABLET BY MOUTH EVERY DAY [facility] fluconazole 150 mg tablet TAKE 1 TABLET BY MOUTH ON DAY 1 THEN REPEAT IN 72 HOURS fluconazole 150 mg tablet TAKE 1 TABLET BY MOUTH ON DAY 1 THEN REPEAT IN 72 HOURS No fluconazol e 150 mg tablet TAKE 1 TABLET BY MOUTH ON DAY 1 THEN REPEAT IN 72 HOURS [facility] fluconazole 200 mg tablet TAKE 1 TABLET BY MOUTH TODAY, AND REPEAT IN 72 HOURS fluconazole 200 mg tablet TAKE 1 TABLET BY MOUTH TODAY, AND REPEAT IN 72 HOURS No fluconazol e 200 mg tablet TAKE 1 TABLET BY MOUTH TODAY, AND REPEAT IN 72 HOURS [facility] gabapentin 100 mg capsule TAKE 1 CAPSULE BY MOUTH EVERY DAY FOR 30 DAYS gabapentin 100 mg capsule TAKE 1 CAPSULE BY MOUTH EVERY DAY FOR 30 DAYS No gabapentin 100 mg capsule TAKE 1 CAPSULE BY MOUTH EVERY DAY FOR 30 DAYS [facility] ipratropium bromide 42 mcg (0.06 %) nasal spray 2 SPRAYS IN EACH NOSTRIL 3 TO 4 TIMES NEEDED FOR NASAL DRIP ipratropium bromide 42 mcg (0.06 %) nasal spray 2 SPRAYS IN EACH NOSTRIL 3 TO 4 TIMES NEEDED FOR NASAL DRIP No ipratropiu m bromide 42 mcg (0.06 %) nasal spray 2 SPRAYS IN EACH NOSTRIL 3 TO 4 TIMES NEEDED FOR NASAL DRIP [facility] ketorolac 10 mg tablet TAKE 1 TABLET BY MOUTH EVERY 6 HOURS WITH FOOD OR MILK NEEDED FOR 5 DAYS ketorolac 10 mg tablet TAKE 1 TABLET BY MOUTH EVERY 6 HOURS WITH FOOD OR MILK NEEDED FOR 5 DAYS No ketorolac 10 mg tablet TAKE 1 TABLET BY MOUTH EVERY 6 HOURS WITH FOOD OR MILK NEEDED FOR 5 DAYS [facility] lamotrigine 100 mg tablet TAKE 1 & 1/2 TABLETS (150 MG) BY MOUTH DAILY lamotrigine 100 mg tablet TAKE 1 & 1/2 TABLETS (150 MG) BY MOUTH DAILY No lamotrigin e 100 mg tablet TAKE 1 & 1/2 TABLETS (150 MG) BY MOUTH DAILY [facility] lamotrigine 200 mg tablet TAKE 1 TABLET BY MOUTH EVERY DAY lamotrigine 200 mg tablet TAKE 1 TABLET BY MOUTH EVERY DAY No lamotrigin e 200 mg tablet TAKE 1 TABLET BY MOUTH EVERY DAY [facility] levofloxaci n 500 mg tablet TAKE 1 TABLET BY MOUTH EVERY DAY FOR 7 DAYS levofloxaci n 500 mg tablet TAKE 1 TABLET BY MOUTH EVERY DAY FOR 7 DAYS No levofloxac in 500 mg tablet TAKE 1 TABLET BY MOUTH EVERY DAY FOR 7 DAYS [facility] lidocaine 5 % topical patch APPLY 1 PATCH TO SKIN EVERY DAY lidocaine 5 % topical patch APPLY 1 PATCH TO SKIN EVERY DAY No lidocaine 5 % topical patch APPLY 1 PATCH TO SKIN EVERY DAY [facility] montelukast 10 mg tablet TAKE 1 TABLET BY MOUTH EVERY DAY montelukast 10 mg tablet TAKE 1 TABLET BY MOUTH EVERY DAY No montelukas t 10 mg tablet TAKE 1 TABLET BY MOUTH EVERY DAY [facility] nitrofurant oin monohydrate /macrocryst als 100 mg capsule TAKE 1 CAPSULE BY MOUTH EVERY 12 HOURS WITH FOOD FOR 7 DAYS nitrofurant oin monohydrate /macrocryst als 100 mg capsule TAKE 1 CAPSULE BY MOUTH EVERY 12 HOURS WITH FOOD FOR 7 DAYS No nitrofuran toin monohydrat e/macrocry stals 100 mg capsule TAKE 1 CAPSULE BY MOUTH EVERY 12 HOURS WITH FOOD FOR 7 DAYS [facility] olopatadine 0.1 % eye drops olopatadine 0.1 % eye drops No olopatadin e 0.1 % eye drops [facility] omeprazole 40 mg capsule,del ayed release TAKE 1 CAPSULE BY MOUTH EVERY DAY 30 MINUTES BEFORE MORNING MEAL FOR 30 DAYS omeprazole 40 mg capsule,del ayed release TAKE 1 CAPSULE BY MOUTH EVERY DAY 30 MINUTES BEFORE MORNING MEAL FOR 30 DAYS No omeprazole 40 mg capsule,de layed release TAKE 1 CAPSULE BY MOUTH EVERY DAY 30 MINUTES BEFORE MORNING MEAL FOR 30 DAYS [facility] prednisone 20 mg tablet TAKE 2 TABLETS BY MOUTH EVERY MORNING DIRECTED prednisone 20 mg tablet TAKE 2 TABLETS BY MOUTH EVERY MORNING DIRECTED No prednisone 20 mg tablet TAKE 2 TABLETS BY MOUTH EVERY MORNING DIRECTED [facility] propranolol 20 mg tablet TAKE 1 TABLET BY MOUTH TWICE A DAY propranolol 20 mg tablet TAKE 1 TABLET BY MOUTH TWICE A DAY No propranolo l 20 mg tablet TAKE 1 TABLET BY MOUTH TWICE A DAY [facility] tamsulosin 0.4 mg capsule TAKE 1 CAPSULE BY MOUTH EVERY DAY FOR 30 DAYS tamsulosin 0.4 mg capsule TAKE 1 CAPSULE BY MOUTH EVERY DAY FOR 30 DAYS No tamsulosin 0.4 mg capsule TAKE 1 CAPSULE BY MOUTH EVERY DAY FOR 30 DAYS [facility] tinidazole 500 mg tablet Take 2 tablets every day by oral route as directed for 5 days. tinidazole 500 mg tablet Take 2 tablets every day by oral route as directed for 5 days. No tinidazole 500 mg tablet Take 2 tablets every day by oral route as directed for 5 days. [facility] tramadol 50 mg tablet TAKE 1 TABLET BY MOUTH EVERY 8 HOURS NEEDED FOR PAIN tramadol 50 mg tablet TAKE 1 TABLET BY MOUTH EVERY 8 HOURS NEEDED FOR PAIN No tramadol 50 mg tablet TAKE 1 TABLET BY MOUTH EVERY 8 HOURS NEEDED FOR PAIN [facility] Vraylar 1.5 mg capsule TAKE 1 CAPSULE BY MOUTH EVERY DAY Vraylar 1.5 mg capsule TAKE 1 CAPSULE BY MOUTH EVERY DAY No Vraylar 1.5 mg capsule TAKE 1 CAPSULE BY MOUTH EVERY DAY [facility] Vraylar 3 mg capsule TAKE 1 CAPSULE BY MOUTH EVERY DAY Vraylar 3 mg capsule TAKE 1 CAPSULE BY MOUTH EVERY DAY No Vraylar 3 mg capsule TAKE 1 CAPSULE BY MOUTH EVERY DAY [facility] Vital Signs Vital Name Observation Time Observation Value Comments S ource BP Diastolic 2021-09-09 00:00:00 61 mm[Hg] [facility] Height 2021-09-09 00:00:00 63 [in_i] [facility] BMI (Body Mass Index) 2021-09-09 00:00:00 40.9 kg/m2 [facility] BP Systolic 2021-09-09 00:00:00 126 mm[Hg] [facility] Body Weight 2021-09-09 00:00:00 231 [lb_av] [facility] BP Diastolic 2020-09-23 00:00:00 68 mm[Hg] [facility] Height 2020-09-23 00:00:00 63 [in_i] [facility] BMI (Body Mass Index) 2020-09-23 00:00:00 33.6 kg/m2 [facility] BP Systolic 2020-09-23 00:00:00 116 mm[Hg] [facility] Body Weight 2020-09-23 00:00:00 189.8 [lb_av] [facility] Procedures Procedure Date / Time Performed Performing Clinicia n Source MAMMO, screening, bilateral 2021-09-09 [facility] Plan of Care Planned Activity Planned Date Details Comments Source Diagnostic Test Pending 2021-09-09 00:00:00 TSH + free T4, serum [code = TSH + free T4, serum] [facility] Diagnostic Test Pending 2021-09-09 00:00:00 [place] IgE Ab [Units/volume] in Serum [code = 6195-2] [facility] Start Date/Time End Date/Time Encounter Type Admission Type Attending Clinicians Care Facility Care Department Encounter ID Source 2022-07-22 12:00:00 2022-07-22 12:00:00 Outpatient EL Referred, Self [facility] [id number] [facility] 2021-09-10 02:03:00 2021-09-10 02:03:00 Outpatient [facility] Cooper_J PRIV PRIV [id number] [facility] 2021-09-09 10:38:00 2021-09-09 10:38:00 Outpatient [facility] Cooper_J PRIV PRIV [id number] [facility] 2021-09-09 00:00:00 2021-09-09 00:00:00 Outpatient Avel Zuñiga PRIV PRIV [id number] 2021-09-09 00:00:00 2021-09-09 00:00:00 Avel Zuñiga MD: [address] [place] [address] , Ph. [facility] - [facility] [id number] [facility] 2021-09-07 04:34:00 2021-09-07 04:34:00 Outpatient [facility]_ Cooper_J PRIV PRIV [id number] [facility] 2021-07-09 11:40:00 2021-07-09 11:40:00 Outpatient [facility]_ Cooper_J PRIV PRIV [id number] [facility] 2021-06-09 02:02:00 2021-06-09 02:02:00 Outpatient [facility]_ Cooper_J PRIV PRIV [id number] [facility] 2021-05-13 01:01:00 2021-05-13 01:01:00 Outpatient [facility]_ Cooper_J PRIV PRIV [id number] [facility] 2020-09-30 09:49:00 2020-09-30 09:49:00 Outpatient [facility] _Cooper_J PRIV PRIV [id number] [facility] 2020-09-29 01:56:00 2020-09-29 01:56:00 Outpatient [facility] _Cooper_J PRIV PRIV [id number] [facility] 2020-09-23 11:40:00 2020-09-23 11:40:00 Outpatient [facility]_ Cooper_J PRIV PRIV [id number] [facility] 2020-09-23 00:00:00 2020-09-23 00:00:00 Outpatient Yogesh Avel Sigala PRIV PRIV [id number] 2020-09-23 00:00:00 2020-09-23 00:00:00 Avel Zuñiga MD: [address] [facility] [address], [address], [place] [address] , Ph. [facility] - [facility] [place] Office* [id number] [facility] 2020-09-22 01:58:00 2020-09-22 01:58:00 Outpatient [facility] _Cooper_J PRIV PRIV [id number] [facility] 2020-09-18 01:19:00 2020-09-18 01:19:00 Outpatient [facility] _Cooper_J PRIV PRIV [id number] [facility] 2020-09-17 12:09:00 2020-09-17 12:09:00 Outpatient [facility]_ Cooper_J PRIV PRIV [id number] [facility] 2020-09-12 04:00:00 2020-09-12 04:00:00 Outpatient [facility]_ Cooper_J PRIV PRIV [id number] [facility] 2020-09-09 12:29:00 2020-09-09 12:29:00 Outpatient [facility]_ Cooper_J PRIV PRIV [id number] [facility] Results Test Description Test Time Test Comments Results Result Co mments Source [facility]
[2023-05-05 10:53] LABS: Absolute Lymphocytes (CBC) 2.7 K/uL (0.7-4.9); Hematocrit 44.4 % (36.0-45.0); Lymphocytes % 31.3 % (15.3-44.8); MCV 86.9 fL (80-100); MPV 6.3 fL (7.6-11.3); Platelets 332 thou/uL (152-406); RBC Red Blood Cell Count 5.11 M/uL (3.86-4.86)
[2023-05-05 11:05] LABS: Bilirubin Total 0.5 mg/dL (0.2-1.0); Potassium 3.7 mEq/L (3.5-5.1); Protein, Total 8.1 g/dL (6.4-8.2)
[2023-05-05 11:12] LABS: Specific Gravity 1.018 (1.005-1.030); Transitional Epithelial <5 /HPF (None Seen); Urine Bacteria None Seen /HPF (<20); Urine Bilirubin NEGATIVE (Negative); Urine Blood Trace (Negative); Urine Clarity Extremely Turbid (Clear); Urine Color Light-Yellow (Yellow); Urine Glucose NEGATIVE (Negative); Urine Mucus Slight /HPF (None Seen); Urine Protein NEGATIVE (Negative); Urine Urobilinogen Normal (Normal)
--- NOTE | 2023-05-05 11:38 | EDPHYS ---
Physician Documentation [facility] Name: Christiane Rubio Age: 42 yrs Sex: Female : 1980 Arrival Date: 05/05/2023 Time: 09:27 Bed 18 Private MD: ED Physician Madhavi Newman HPI: 05/05 10:45 This 42 yrs old Female presents to ER via Ambulatory with complaints of sp3 vomiting, diarrhea, possible bad water. 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 Her symptoms include upset stomach, mild emesis without blood or mucus and watery diarrhea. She denies fever, URI symptoms, chest pain, shortness of breath, back pain, [employer] symptoms, rash, syncope, near syncope, known sick contacts, travel history, or any other signs or symptoms on ROS at this time.. Historical: - PMHx: 10:15 Anxiety; Bipolar; CVA; Depression; iw - PSHx: 10:15 tubes tied; iw - Immunization history:: Adult Immunizations up to date. - Social history:: Smoking status: Reported history of juuling and/or vaping. Patient denies any tobacco usage or history of. ROS: 10:46 Constitutional: Negative for fever, chills, and weight loss, Eyes: Negative for injury, sp3 pain, redness, and discharge, ENT: Negative for injury, pain, and discharge, Neck: Negative for injury, pain, and swelling, Cardiovascular: Negative for chest pain, palpitations, and edema, Respiratory: Negative for shortness of breath, cough, wheezing, and pleuritic chest pain, Back: Negative for injury and pain, MS/Extremity: Negative for injury and deformity, Skin: Negative for injury, rash, and discoloration, Neuro: Negative for headache, weakness, numbness, tingling, and seizure, Psych: Negative for depression, anxiety, suicide ideation, homicidal ideation, and hallucinations, Allergy/Immunology: Negative for hives, rash, and allergies, Endocrine: Negative for neck swelling, polydipsia, polyuria, polyphagia, and marked weight changes, Hematologic/Lymphatic: Negative for swollen nodes, abnormal bleeding, and unusual bruising, 10:46 All other systems are negative, Exam: 10:46 Constitutional: This is a well developed, well nourished patient who is awake, alert, sp3 and in no acute distress. Head/Face: Normocephalic, atraumatic. Eyes: Pupils equal round and reactive to light, extra-ocular motions intact. Lids and lashes normal. Conjunctiva and sclera are non-icteric and not injected. Cornea within normal limits. Periorbital areas with no swelling, redness, or edema. Neck: Trachea midline, no thyromegaly or masses palpated, and no cervical lymphadenopathy. Supple, full range of motion without nuchal rigidity, or vertebral point tenderness. No Meningismus. Chest/axilla: Normal chest wall appearance and motion. Nontender with no deformity. No lesions are appreciated. Cardiovascular: Regular rate and rhythm with a normal S1 and S2. No gallops, murmurs, or rubs. Normal PMI, no JVD. No pulse deficits. Respiratory: Lungs have equal breath sounds bilaterally, clear to auscultation and percussion. No rales, rhonchi or wheezes noted. No increased work of breathing, no retractions or nasal flaring. Back: No spinal tenderness. No costovertebral tenderness. Full range of motion. Skin: Warm, dry with normal turgor. Normal color with no rashes, no lesions, and no evidence of cellulitis. MS/ Extremity: Pulses equal, no cyanosis. Neurovascular intact. Full, normal range of motion. Neuro: Awake and alert, GCS 15, oriented to person, place, time, and situation. Cranial nerves II-XII grossly intact. Motor strength 5/5 in all extremities. Sensory grossly intact. Cerebellar exam normal. Normal gait. Psych: Awake, alert, with orientation to person, place and time. Behavior, mood, and affect are within normal limits. 10:46 Abdomen/GI: Mild diffuse cramping on palpation without peritoneal signs, rebound or guarding noted., Vital Signs: 10:19 BP 127 / 89; Pulse 80; Resp 18; Temp 97.4; Pulse Ox 100% ; Weight 93.89 kg; Height 5 ll1 ft. 2 in. ; Pain 5/10; 11:39 BP 135 / 78; Pulse 79; Resp 16; Pulse Ox 98% on R/A; db 12:30 BP 120 / 66; Pulse 78; Resp 16; Pulse Ox 100% on R/A; db 13:30 BP 128 / 84; Pulse 77; Resp 18; Pulse Ox 100% on R/A; db 10:19 Body Mass Index 37.86 (93.89 kg, 157.48 cm) ll1 10:19 Pain Scale: Adult ll1 MDM: 10:17 Patient medically screened. sp3 10:47 Data reviewed: vital signs, nurses notes, lab test result(s). ED course: 42-year-old sp3 female with likely waterborne illness. We will cover with antibiotics and obtain laboratory values to assess electrolytes and also administer IV fluids. If workup is negative, we will safely discharged home on oral antibiotics follow-up to her PCP. I am not highly suspicious of acute abdomen, surgical pathology, cholecystitis, pancreatitis, bowel obstruction, sepsis, shock or any other critical pathology at this time.. 11:37 ED course: Laboratory values are within normal limits. We will discharge patient after sp3 her treatments are completed.. 12 10:18 Order name: CBC with Diff; Complete Time: 11:13 sp3 05/05 10:18 Order name: CMP; Complete Time: 11:13 sp3 05/05 10:18 Order name: Lipase; Complete Time: 11:13 sp3 05/05 10:18 Order name: Urinalysis w/ reflexes: Please cath if no urine output in 20 minutes; sp3 Complete Time: 11:13 05/05 10:18 Order name: IV Saline Lock; Complete Time: 10:41 sp3 05/05 10:18 Order name: Labs collected and sent; Complete Time: 10:41 sp3 Administered Medications: 11:15 Drug: NS 0.9% IV 1000 ml IV at 1 bolus Per protocol; 1000 mL bolus Route: IV; Rate: 1 db bolus; Site: left antecubital; 12:54 Follow up: Response: No adverse reaction; IV Status: Completed infusion; IV Intake: db 1000ml 11:30 Drug: Ondansetron IVP 4 mg IVP once; over 2 minutes Route: IVP; Site: left antecubital; db 12:55 Follow up: Response: No adverse reaction db 11:40 Drug: metroNIDAZOLE IVPB 500 mg 100 ml IVPB at 200 ml/hr once over 30 mins Volume: 100 db ml; Route: IVPB; Rate: 200 ml/hr; Infused Over: 30 mins; Site: left antecubital; 12:55 Follow up: Response: No adverse reaction; IV Status: Completed infusion; IV Intake: db 100ml 12:50 Drug: Ciprofloxacin IVPB 400 mg 200 ml IVPB once over 60 mins Volume: 200 ml; Route: db IVPB; Infused Over: 60 mins; Site: left antecubital; 13:50 Follow up: Response: No adverse reaction; IV Status: Completed infusion; IV Intake: db 200ml Disposition Summary: 05/05/23 11:37 Discharge Ordered Notes: Location: Home sp3 Condition: Stable sp3 Diagnosis - Diarrhea, foodborne illness sp3 Followup: sp3 - With: Private Physician - When: Upon discharge from the Emergency Department - Reason: Continuance of care Discharge Instructions: - Discharge Summary Sheet sp3 - Diarrhea, Adult sp3 - Water Safety sp3 Forms: - Medication Reconciliation Form sp3 - Thank You Letter sp3 - Antibiotic Education sp3 - Prescription Opioid Use sp3 - Patient Portal Instructions sp3 - Leadership Thank You Letter sp3 - Work release form db Prescriptions: - Cipro 500 mg Oral Tablet - take 1 tablet ORAL route every 12 hours for 10 days; 20 tablet; Refills: 0, sp3 Product Selection Permitted - Flagyl 500 mg Oral Tablet - take 1 tablet ORAL route every 8 hours for 10 days; 30 tablet; Refills: 0, sp3 Product Selection Permitted Signatures: Dispatcher [employer] Michelle Hebert, JOON DUPREE iw Tamir Chirinos RN RN ll1 Madhavi Newman MD MD sp3 Lolita Tuttle RN RN db
--- NOTE | 2023-05-05 11:38 | ER ---
Nurse's Notes [facility] Name: Christiane Rubio Age: 42 yrs Sex: Female : 1980 Arrival Date: 05/05/2023 Time: 09:27 Bed 18 Private MD: Diagnosis: Diarrhea, foodborne illness Presentation: 05/05 10:19 Chief complaint: Patient states: Loose stools since last night. N/V abd cramps started ll1 this AM. Coronavirus screen: Client denies travel out of the [place] in the last 14 days. At this time, the client does not indicate any symptoms associated with coronavirus-19. Ebola Screen: Patient denies travel to an Ebola-affected area in the 21 days before illness onset. Initial Sepsis Screen: Does the patient meet any 2 criteria? No. Patient's initial sepsis screen is negative. Does the patient have a suspected source of infection? Yes: Acute abdominal pain. Risk Assessment: Do you want to hurt yourself or someone else? Patient reports no desire to harm self or others. Onset of symptoms was May 04, 2023. 10:19 Method Of Arrival: Ambulatory ll1 10:19 Acuity: SAROJ 3 ll1 Triage Assessment: 10:19 General: Appears in no apparent distress. Behavior is calm, cooperative, appropriate ll1 for age. General: Reports fatigue for. Pain: Complains of pain in abdomen Quality of pain is described as crampy. GI: Reports cramping, nausea, vomiting, "loose stools". Historical: - PMHx: 10:15 Anxiety; Bipolar; CVA; Depression; iw - PSHx: 10:15 tubes tied; iw - Immunization history:: Adult Immunizations up to date. - Social history:: Smoking status: Reported history of juuling and/or vaping. Patient denies any tobacco usage or history of. Screenin:00 [facility] ED Fall Risk Assessment (Adult) History of falling in the last 3 months, db including since admission No falls in past 3 months (0 pts) Confusion or Disorientation No (0 pts) Intoxicated or Sedated No (0 pts) Impaired Gait No (0 pts) Mobility Assist Device Used No (0 pt) Altered Elimination No (0 pt) Score/Fall Risk Level 0 - 2 = Low Risk Oriented to surroundings, Maintained a safe environment. Abuse screen: Denies threats or abuse. Denies injuries from another. Nutritional screening: No deficits noted. Tuberculosis screening: No symptoms or risk factors identified. Assessment: 12:00 Reassessment: Patient appears in no apparent distress at this time. Patient and/or db family updated on plan of care and expected duration. Pain level reassessed. Patient is alert, oriented x 3, equal unlabored respirations, skin warm/dry/pink. General: Appears in no apparent distress. comfortable, Behavior is calm, cooperative. 13:51 Reassessment: Patient appears in no apparent distress at this time. Patient and/or db family updated on plan of care and expected duration. Pain level reassessed. Patient is alert, oriented x 3, equal unlabored respirations, skin warm/dry/pink. Reassessment: Patient states feeling better. Patient states symptoms have improved. General: Appears in no apparent distress. comfortable, Behavior is calm, cooperative. Neuro: Level of Consciousness is awake, alert, obeys commands, Oriented to person, place, time, situation. Respiratory: Airway is patent Respiratory effort is even, unlabored, Respiratory pattern is regular, symmetrical. Vital Signs: 10:19 BP 127 / 89; Pulse 80; Resp 18; Temp 97.4; Pulse Ox 100% ; Weight 93.89 kg; Height 5 ll1 ft. 2 in. ; Pain 5/10; 11:39 BP 135 / 78; Pulse 79; Resp 16; Pulse Ox 98% on R/A; db 12:30 BP 120 / 66; Pulse 78; Resp 16; Pulse Ox 100% on R/A; db 13:30 BP 128 / 84; Pulse 77; Resp 18; Pulse Ox 100% on R/A; db 10:19 Body Mass Index 37.86 (93.89 kg, 157.48 cm) ll1 10:19 Pain Scale: Adult ll1 ED Course: 09:49 Patient arrived in ED. iw 10:03 Madhavi Newman MD is Attending Physician. sp3 10:15 Arm band placed on. iw 10:20 Triage completed. ll1 10:41 CBC with Diff Sent. ll1 10:41 CMP Sent. ll1 10:41 Lipase Sent. ll1 10:41 Inserted saline lock: 22 gauge in left antecubital area, using aseptic technique. Blood ll1 collected. 10:57 Urinalysis w/ reflexes: Please cath if no urine output in 20 minutes Sent. iw 11:19 Lolita Tuttle, RN is Primary Nurse. db 13:52 Patient has correct armband on for positive identification. Bed in low position. Call db light in reach. Side rails up X 1. Provided Education on: DISCHARGE. Pulse ox on. NIBP on. Warm blanket given. 14:01 No provider procedures requiring assistance completed. Patient did not have IV access db during this emergency room visit. intact, bleeding controlled, No redness/swelling at site. Administered Medications: 11:15 Drug: NS 0.9% IV 1000 ml IV at 1 bolus Per protocol; 1000 mL bolus Route: IV; Rate: 1 db bolus; Site: left antecubital; 12:54 Follow up: Response: No adverse reaction; IV Status: Completed infusion; IV Intake: db 1000ml 11:30 Drug: Ondansetron IVP 4 mg IVP once; over 2 minutes Route: IVP; Site: left antecubital; db 12:55 Follow up: Response: No adverse reaction db 11:40 Drug: metroNIDAZOLE IVPB 500 mg 100 ml IVPB at 200 ml/hr once over 30 mins Volume: 100 db ml; Route: IVPB; Rate: 200 ml/hr; Infused Over: 30 mins; Site: left antecubital; 12:55 Follow up: Response: No adverse reaction; IV Status: Completed infusion; IV Intake: db 100ml 12:50 Drug: Ciprofloxacin IVPB 400 mg 200 ml IVPB once over 60 mins Volume: 200 ml; Route: db IVPB; Infused Over: 60 mins; Site: left antecubital; 13:50 Follow up: Response: No adverse reaction; IV Status: Completed infusion; IV Intake: db 200ml Medication: 12:00 VIS not applicable for this client. db Intake: 12:54 IV: 1000ml; Total: 1000ml. db 12:55 IV: 100ml; Total: 1100ml. db 13:50 IV: 200ml; Total: 1300ml. db Outcome: 11:37 Discharge ordered by . sp3 14:00 Discharged to home ambulatory, with friend, db 14:00 Condition: stable 14:00 Discharge instructions given to patient, Instructed on discharge instructions, follow up and referral plans. Prescriptions given X 1, 14:02 Patient left the ED. db Signatures: Michelle Lu RN RN iw Tamir Chirinos, RN RN ll1 Madhavi Newman MD MD sp3 Lolita Tuttle, RN RN db
[2023-05-05] MEDS ORDERED: ONDANSETRON 4 MG/2 ML VIAL ONE (11:40)
[2023-05-05] MEDS ORDERED: NA CHLORIDE 0.9% 1,000 ML ONE (11:40)
[2023-05-05] MEDS ORDERED: METRONIDAZOLE 500mg IVPB 500 MG/100 ML BAG IV ONE (11:41)
[2023-05-05] MEDS ORDERED: CIPROFLOXACIN 400mg IV 400 MG/200 ML BAG IV ONE (11:41)
[2023-05-05 14:07] VITALS: TEMP 97.4
[2023-05-05 14:10] VITALS: O2SAT 100
[2023-05-05 14:11] VITALS: BP 128/84
== END 2023-05-05 14:02 | disposition home or self-care (01) ==
LOC: ER 09:27 → SUPCPDRO 09:27 → ER 14:02
DX: A05.9 Bacterial foodborne intoxication, unspecified (principal)
CPT/HCPCS: 96365; 85025; 81001; 36415; 83690; 80053; 96375; 99284; J2405; J0744; J7030

== ENCOUNTER 2023-08-29 19:26 | Emergency (ER) | payer BC ==
--- OUTSIDE RECORDS SUMMARY | 2023-08-29 19:29 | XMS REPORT | Continuity of Care Document ---
Author Name Unknown Address [address] [place] [address] [address] [place] [address] [facility] Address [address] [place] [address] [address] [place] [address] Care Team Providers Care Voltage Inspector Name Role Phone Referred, Self Attending Clinician Unavailable MAXIMILIANO_Alexi_Hector Attending Clinician Unavaila Avel Sanchez Attending Clinician [phone] MAXIMILIANO_ALYSON_Yogesh_J Attending Clinician Unavail able Referred, Self Admitting Clinician Unavailable Consuelo Admitting Clinician Unavaila sintia Bullard Admitting Clinician Unavail able Payers Payer Name Policy Type Policy Number Effective Date Expirati on Date Source [facility] [id number] 2019 00:00:00 Problems Condition Name Condition Details Condition Category Status Onset Date Resolution Date Last Treatment Date Treating Clinician Comments Source Mood disorder Mood Disorder Problem Active 08-20 00:00: 00 [facility] Anxiety Anxiety Problem Active 08-20 00:00: 00 [facility] Cerebrovas cular accident Cerebrovas cular Accident Problem [...] 1 PUFFS BY MOUTH TWICE A DAY [facility] albuterol sulfate HFA 90 mcg/actuati on aerosol inhaler INHALE 1 PUFF INTO THE LUNGS EVERY 4 HOURS FOR 30 DAYS albuterol sulfate HFA 90 mcg/actuati on aerosol inhaler INHALE 1 PUFF INTO THE LUNGS EVERY 4 HOURS FOR 30 DAYS No albuterol sulfate HFA 90 mcg/actuat ion aerosol inhaler INHALE 1 PUFF INTO THE LUNGS EVERY 4 HOURS FOR 30 DAYS [facility] azelastine 137 mcg (0.1 %) nasal spray aerosol 1-2 SPRAYS EACH NOSTRIL TWICE A DAY NEEDED FOR ALLERGIES azelastine 137 mcg (0.1 %) nasal spray aerosol 1-2 SPRAYS EACH NOSTRIL TWICE A DAY NEEDED FOR ALLERGIES No azelastine 137 mcg (0.1 %) nasal spray aerosol 1-2 SPRAYS EACH NOSTRIL TWICE A DAY NEEDED FOR ALLERGIES [facility] azithromyci n 250 mg tablet TAKE 2 TABLETS BY MOUTH TODAY, THEN TAKE 1 TABLET DAILY FOR 4 DAYS azithromyci n 250 mg tablet TAKE 2 TABLETS BY MOUTH TODAY, THEN TAKE 1 TABLET DAILY FOR 4 DAYS No azithromyc in 250 mg tablet TAKE 2 TABLETS BY MOUTH TODAY, THEN TAKE 1 TABLET DAILY FOR 4 DAYS [facility] benzonatate 100 mg capsule TAKE 1 CAPSULE BY MOUTH THREE TIMES A DAY FOR 10 DAYS NEEDED benzonatate 100 mg capsule TAKE 1 CAPSULE BY MOUTH THREE TIMES A DAY FOR 10 DAYS NEEDED No benzonatat e 100 mg capsule TAKE 1 CAPSULE BY MOUTH THREE TIMES A DAY FOR 10 DAYS NEEDED [facility] benzonatate 200 mg capsule TAKE 1 CAPSULE BY MOUTH THREE TIMES A DAY NEEDED FOR COUGH benzonatate 200 mg capsule TAKE 1 CAPSULE BY MOUTH THREE TIMES A DAY NEEDED FOR COUGH No benzonatat e 200 mg capsule TAKE 1 CAPSULE BY MOUTH THREE TIMES A DAY NEEDED FOR COUGH [facility] bromphenira mine-pseudo ephedrine-D M 2 mg-30 [...] MOUTH EVERY 6 HOURS FOR 10 DAYS [facility] clonazepam 0.5 mg tablet TAKE 1 TABLET BY MOUTH TWICE A DAY clonazepam 0.5 mg tablet TAKE 1 TABLET BY MOUTH TWICE A DAY No clonazepam 0.5 mg tablet TAKE 1 TABLET BY MOUTH TWICE A DAY [facility] cyclobenzap rine 10 mg tablet TAKE 1 TABLET BY MOUTH EVERY 8 HOURS NEEDED FOR MUSCLE SPASMS cyclobenzap rine 10 mg tablet TAKE 1 TABLET BY MOUTH EVERY 8 HOURS NEEDED FOR MUSCLE SPASMS No cyclobenza julina 10 mg tablet TAKE 1 TABLET BY MOUTH EVERY 8 HOURS NEEDED FOR MUSCLE SPASMS [facility] doxepin 50 mg capsule TAKE 1 CAPSULE (50 MG) BY MOUTH DAILY AT BEDTIME doxepin 50 mg capsule TAKE 1 CAPSULE (50 MG) BY MOUTH DAILY AT BEDTIME No doxepin 50 mg capsule TAKE 1 CAPSULE (50 MG) BY MOUTH DAILY AT BEDTIME [facility] doxepin 75 mg capsule TAKE 1 CAPSULE (75 MG) BY MOUTH DAILY AT BEDTIME doxepin 75 mg capsule TAKE 1 CAPSULE (75 MG) BY MOUTH DAILY AT BEDTIME No doxepin 75 mg capsule TAKE 1 CAPSULE (75 MG) BY MOUTH DAILY AT BEDTIME [facility] doxycycline hyclate 100 mg capsule TAKE 1 CAPSULE TWICE A DAY BY ORAL ROUTE DIRECTED FOR 7 DAYS. doxycycline hyclate 100 mg capsule TAKE 1 CAPSULE TWICE A DAY BY ORAL ROUTE DIRECTED FOR 7 DAYS. No doxycyclin e hyclate 100 mg capsule TAKE 1 CAPSULE TWICE A DAY BY ORAL ROUTE DIRECTED FOR 7 DAYS. [facility] escitalopra m 20 mg tablet TAKE 1 TABLET BY MOUTH EVERY DAY escitalopra m 20 mg tablet TAKE 1 TABLET BY MOUTH EVERY DAY No escitalopr am 20 mg tablet TAKE 1 TABLET BY MOUTH EVERY DAY [facility] fluconazole 150 mg tablet TAKE 1 TABLET BY MOUTH ON DAY 1 THEN REPEAT IN 72 HOURS fluconazole 150 mg tablet TAKE 1 TABLET BY MOUTH ON DAY 1 THEN REPEAT IN 72 HOURS No fluconazol e 150 mg tablet TAKE 1 TABLET BY MOUTH ON DAY 1 THEN REPEAT IN 72 HOURS [facility] fluconazole 200 mg tablet TAKE 1 TABLET BY MOUTH TODAY, AND REPEAT IN 72 HOURS fluconazole 200 mg tablet TAKE 1 TABLET BY MOUTH TODAY, AND REPEAT IN 72 HOURS No fluconazol e 200 mg tablet TAKE 1 TABLET BY MOUTH TODAY, AND REPEAT IN 72 HOURS [facility] gabapentin 100 mg capsule TAKE 1 CAPSULE BY MOUTH EVERY DAY FOR 30 DAYS gabapentin 100 mg capsule TAKE 1 CAPSULE BY MOUTH EVERY DAY FOR 30 DAYS No gabapentin 100 mg capsule TAKE 1 CAPSULE BY MOUTH EVERY DAY FOR 30 DAYS [facility] ipratropium bromide 42 mcg (0.06 [...] TO 4 TIMES NEEDED FOR NASAL DRIP [facility] ketorolac 10 mg tablet TAKE 1 TABLET BY MOUTH EVERY 6 HOURS WITH FOOD OR MILK NEEDED FOR 5 DAYS ketorolac 10 mg tablet TAKE 1 TABLET BY MOUTH EVERY 6 HOURS WITH FOOD OR MILK NEEDED FOR 5 DAYS No ketorolac 10 mg tablet TAKE 1 TABLET BY MOUTH EVERY 6 HOURS WITH FOOD OR MILK NEEDED FOR 5 DAYS [facility] lamotrigine 100 mg tablet TAKE 1 & 1/2 TABLETS (150 MG) BY MOUTH DAILY lamotrigine 100 mg tablet TAKE 1 & 1/2 TABLETS (150 MG) BY MOUTH DAILY No lamotrigin e 100 mg tablet TAKE 1 & 1/2 TABLETS (150 MG) BY MOUTH DAILY [facility] lamotrigine 200 mg tablet TAKE 1 TABLET BY MOUTH EVERY DAY lamotrigine 200 mg tablet TAKE 1 TABLET BY MOUTH EVERY DAY No lamotrigin e 200 mg tablet TAKE 1 TABLET BY MOUTH EVERY DAY [facility] levofloxaci n 500 mg tablet TAKE 1 TABLET BY MOUTH EVERY DAY FOR 7 DAYS levofloxaci n 500 mg tablet TAKE 1 TABLET BY MOUTH EVERY DAY FOR 7 DAYS No levofloxac in 500 mg tablet TAKE 1 TABLET BY MOUTH EVERY DAY FOR 7 DAYS [facility] lidocaine 5 % topical patch APPLY 1 PATCH TO SKIN EVERY DAY lidocaine 5 % topical patch APPLY 1 PATCH TO SKIN EVERY DAY No lidocaine 5 % topical patch APPLY 1 PATCH TO SKIN EVERY DAY [facility] montelukast 10 mg tablet TAKE 1 TABLET BY MOUTH EVERY DAY montelukast 10 mg tablet TAKE 1 TABLET BY MOUTH EVERY DAY No montelukas t 10 mg tablet TAKE 1 TABLET BY MOUTH EVERY DAY [facility] nitrofurant oin monohydrate /macrocryst als [...] 12 HOURS WITH FOOD FOR 7 DAYS [facility] olopatadine 0.1 % eye drops olopatadine 0.1 % eye drops No olopatadin e 0.1 % eye drops [facility] omeprazole 40 mg capsule,del ayed [...] MINUTES BEFORE MORNING MEAL FOR 30 DAYS [facility] prednisone 20 mg tablet TAKE 2 TABLETS BY MOUTH EVERY MORNING DIRECTED prednisone 20 mg tablet TAKE 2 TABLETS BY MOUTH EVERY MORNING DIRECTED No prednisone 20 mg tablet TAKE 2 TABLETS BY MOUTH EVERY MORNING DIRECTED [facility] propranolol 20 mg tablet TAKE 1 TABLET BY MOUTH TWICE A DAY propranolol 20 mg tablet TAKE 1 TABLET BY MOUTH TWICE A DAY No propranolo l 20 mg tablet TAKE 1 TABLET BY MOUTH TWICE A DAY [facility] tamsulosin 0.4 mg capsule TAKE 1 CAPSULE BY MOUTH EVERY DAY FOR 30 DAYS tamsulosin 0.4 mg capsule TAKE 1 CAPSULE BY MOUTH EVERY DAY FOR 30 DAYS No tamsulosin 0.4 mg capsule TAKE 1 CAPSULE BY MOUTH EVERY DAY FOR 30 DAYS [facility] tinidazole 500 mg tablet Take 2 tablets every day by oral route as directed for 5 days. tinidazole 500 mg tablet Take 2 tablets every day by oral route as directed for 5 days. No tinidazole 500 mg tablet Take 2 tablets every day by oral route as directed for 5 days. [facility] tramadol 50 mg tablet TAKE 1 TABLET BY MOUTH EVERY 8 HOURS NEEDED FOR PAIN tramadol 50 mg tablet TAKE 1 TABLET BY MOUTH EVERY 8 HOURS NEEDED FOR PAIN No tramadol 50 mg tablet TAKE 1 TABLET BY MOUTH EVERY 8 HOURS NEEDED FOR PAIN [facility] Vraylar 1.5 mg capsule TAKE [...] n Source MAMMO, screening, bilateral 2021-09-09 00:00:00 [facility] Plan of Care Planned Activity Planned Date Details Comments Source Diagnostic Test Pending 2021-09-09 00:00:00 TSH + free T4, serum [code = TSH + free T4, serum] [facility] Diagnostic Test Pending 2021-09-09 00:00:00 [place] IgE Ab [Units/volume] in Serum [code = 6195-2] [facility] En[facility]ters Start Date/Time End Date/Time Encounter Type Admission Type Attending Clinicians Care Facility Care Department Encounter ID Source 2022-07-22 12:00:00 2022-07-22 12:00:00 Outpatient EL Referred, Self [facility] [id number] [facility] 2021-09-10 02:03:00 2021-09-10 02:03:00 Outpatient [facility] Cooper_J PRIV PRIV [id number] [facility] 2021-09-09 10:38:00 2021-09-09 10:38:00 Outpatient [facility] Cooper_J PRIV PRIV [id number] [facility] 2021-09-09 00:00:00 2021-09-09 00:00:00 Outpatient Avel Zuñiga PRIV PRIV [id number] 2021-09-09 00:00:00 2021-09-09 00:00:00 Avel Zuñiga MD: [address] [place] [address] , Ph. [facility] - [facility] [id number] [facility] 2021-09-07 04:34:00 2021-09-07 04:34:00 Outpatient [facility] Cooper_J PRIV PRIV [id number] [facility] 2021-07-09 11:40:00 2021-07-09 11:40:00 Outpatient [facility] Cooper_J PRIV PRIV [id number] [facility] 2021-06-09 02:02:00 2021-06-09 02:02:00 Outpatient [facility] Cooper_J PRIV PRIV [id number] [facility] 2021-05-13 01:01:00 2021-05-13 01:01:00 Outpatient [facility] Cooper_J PRIV PRIV [id number] [facility] 2020-09-30 09:49:00 2020-09-30 09:49:00 Outpatient [facility] _Cooper_J PRIV PRIV [id number] [facility] 2020-09-29 01:56:00 2020-09-29 01:56:00 Outpatient [facility] _Cooper_J PRIV PRIV [id number] [facility] 2020-09-23 11:40:00 2020-09-23 11:40:00 Outpatient [facility] Cooper_J PRIV PRIV [id number] [facility] 2020-09-23 00:00:00 2020-09-23 00:00:00 Outpatient Yogesh Avel Sigala PRIV PRIV [id number] 2020-09-23 00:00:00 2020-09-23 00:00:00 Avel Zuñiga MD: [address] [facility], [address], [place] [address] , Ph. [facility] - [facility] [place] [facility]* [id number] [facility] 2020-09-22 01:58:00 2020-09-22 01:58:00 Outpatient [facility] _Cooper_J PRIV PRIV [id number] [facility] 2020-09-18 01:19:00 2020-09-18 01:19:00 Outpatient [facility] _Cooper_J PRIV PRIV [id number] [facility] 2020-09-17 12:09:00 2020-09-17 12:09:00 Outpatient [facility]_ Cooper_J PRIV PRIV [id number] [facility] 2020-09-12 04:00:00 2020-09-12 04:00:00 Outpatient [facility] Cooper_J PRIV PRIV [id number] [facility] 2020-09-09 12:29:00 2020-09-09 12:29:00 Outpatient [facility] Cooper_J PRIV PRIV [id number] [facility] Results Test Description Test Time Test Comments Results Result Co mments Source [facility]
[2023-08-29] MEDS ORDERED: IBUPROFEN 200 MG TAB PO ONE (19:59)
--- NOTE | 2023-08-29 20:58 | RAD REPORT ---
EXAM DESCRIPTION: RAD - Tib Fib Right - 08/29/2023 8:44 pm CLINICAL HISTORY: Right leg pain FINDINGS: No fracture is seen
--- NOTE | 2023-08-29 21:16 | ER ---
Nurse's Notes [facility] Name: Christiane Rubio Age: 42 yrs Sex: Female : 1980 Arrival Date: 08/29/2023 Time: 19:26 Bed DX3 Private MD: Diagnosis: Contusion of right ankle;Sprain of ankle Presentation: 08/28 19:52 Chief complaint: Patient states: Fell down 3 stairs at 1 pm, right ankle pain. vc1 Coronavirus screen: At this time, the client does not indicate any symptoms associated with coronavirus-19. Ebola Screen: Patient negative for fever greater than or equal to 101.5 degrees Fahrenheit, and additional compatible Ebola Virus Disease symptoms Patient denies exposure to infectious person. Patient denies travel to an Ebola-affected area in the 21 days before illness onset. No symptoms or risks identified at this time. Initial Sepsis Screen: Does the patient meet any 2 criteria? No. Patient's initial sepsis screen is negative. Does the patient have a suspected source of infection? No. Patient's initial sepsis screen is negative. Risk Assessment: Do you want to hurt yourself or someone else? Patient reports no desire to harm self or others. Onset of symptoms was August 29, 2023 at 13:00. 19:52 Method Of Arrival: Wheelchair vc1 19:52 Acuity: SAROJ 4 vc1 Triage Assessment: 19:55 General: Appears in no apparent distress. uncomfortable, Behavior is calm, cooperative, vc1 appropriate for age. Pain: Complains of pain in right ankle and anterior aspect of right ankle Pain radiates to lateral aspect of right calf Pain currently is 6 out of 10 on a pain scale. Quality of pain is described as sharp, Pain began suddenly, Aggravated by increased activity, repositioning, weight bearing. EENT: No deficits noted. No signs and/or symptoms were reported regarding the EENT system. Neuro: Level of Consciousness is awake, alert, obeys commands, Oriented to person, place, time, situation, Appropriate for age. Cardiovascular: No deficits noted. Respiratory: Airway is patent Respiratory effort is even, unlabored, Respiratory pattern is regular, symmetrical. GI: No deficits noted. No signs and/or symptoms were reported involving the gastrointestinal system. : No deficits noted. No signs and/or symptoms were reported regarding the genitourinary system. Derm: No deficits noted. No signs and/or symptoms reported regarding the dermatologic system. Musculoskeletal: Circulation, motion, and sensation intact. Range of motion: intact in all extremities, Reports pain in right ankle. 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 - Infectious Disease History:: Denies. - Social history:: Smoking status: Reported history of juuling and/or vaping. Patient uses alcohol, occasionally. - Family history:: not pertinent. Screenin:00 [facility] ED Fall Risk Assessment (Adult) History of falling in the last 3 months, vc1 including since admission Yes- single mechanical fall (1 pt) Confusion or Disorientation No (0 pts) Intoxicated or Sedated No (0 pts) Impaired Gait No (0 pts) Mobility Assist Device Used No (0 pt) Altered Elimination No (0 pt) Score/Fall Risk Level 0 - 2 = Low Risk Oriented to surroundings, Maintained a safe environment, Educated pt \T\ family on fall prevention, incl call for assistance when getting out of bed. Abuse screen: Denies threats or abuse. Nutritional screening: No deficits noted. Tuberculosis screening: No symptoms or risk factors identified. Assessment: 22:00 Reassessment: Patient and/or family updated on plan of care and expected duration. Pain vc1 level reassessed. Patient is alert, oriented x 3, equal unlabored respirations, skin warm/dry/pink. Patient states feeling better. Patient states symptoms have improved. Vital Signs: 19:52 BP 115 / 96; Pulse 82; Resp 16; Temp 97.8; Pulse Ox 97% ; Weight 99.79 kg; Height 5 ft. vc1 2 in. ; Pain 6/10; 21:45 BP 112 / 84; Pulse 80; Resp 16; Pulse Ox 98% ; vc1 19:52 Body Mass Index 40.24 (99.79 kg, 157.48 cm) vc1 19:52 Pain Scale: Adult vc1 Elizabeth Coma Score: 04/02 04:43 Eye Response: spontaneous(4). Motor Response: obeys commands(6). Verbal Response: sp4 oriented(5). Total: 15. ED Course: 08/28 19:28 Patient arrived in ED. jj6 19:29 Nomi Abdul DO is Attending Physician. ms3 19:53 Triage completed. vc1 19:54 Arm band placed on right wrist. vc1 20:03 Warm blanket given. Ice pack to injury. vc1 20:06 Attending Physician role handed off by Nomi Abdul DO sp4 20:06 Durga Wray MD is Attending Physician. sp4 20:45 Tib Fib Right XRAY In Process Unspecified. EDMS 21:59 No provider procedures requiring assistance completed. Patient did not have IV access vc1 during this emergency room visit. Crutch training done. Ortho shoe applied to right foot. 22:00 dc'd from chairs. vc1 22:00 Provided Education on: crutch training, prop up leg use ice. vc1 Administered Medications: 20:02 Drug: Ibuprofen PO 600 mg PO once Route: PO; vc1 21:58 Follow up: Response: Pain is decreased vc1 21:57 Drug: [place] PO 10 mg-325 mg 1 tabs PO once Route: PO; vc1 21:57 Follow up: Response: Medication administered at discharge. vc1 21:57 Drug: Methocarbamol PO 750 mg PO once Route: PO; vc1 21:57 Follow up: Response: Medication administered at discharge. vc1 Medication: 22:00 VIS not applicable for this client. vc1 Outcome: 21:16 Discharge ordered by . sp4 22:00 Discharged to home with crutches, with family, vc1 22:00 Condition: good 22:00 Discharge instructions given to patient, Instructed on discharge instructions, follow up and referral plans. medication usage, crutch walking, Demonstrated understanding of instructions, follow-up care, medications, crutch walking, Prescriptions given X 2, 22:01 Patient left the ED. vc1 Signatures: Dispatcher [employer] EDMS oNmi Abdul DO DO ms3 KristianBijal jj6 Jennifer Martinez RN RN vc1 Potepalov, Durga, MD MD sp4
--- NOTE | 2023-08-29 21:16 | EDPHYS ---
Physician Documentation [facility] Name: Christiane Rubio Age: 42 yrs Sex: Female : 1980 Arrival Date: 08/29/2023 Time: 19:26 Bed DX3 Private MD: ED Physician Durga Wray HPI: 08/28 19:40 This 42 yrs old Female presents to ER via Unassigned with complaints of Fall ms3 Injury. 19:40 42-year-old female with past medical history of MTHFR, CVA presents emergency ms3 department after falling down 3 stairs at 1 PM. Patient states when falling she landed on her right foot hitting her right lateral ankle. Patient states pain is a 6/10 and walking makes the pain worse. Patient denies any alleviating factors. Patient denies striking her head or loss of consciousness. 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 - Infectious Disease History:: Denies. - Social history:: Smoking status: Reported history of juuling and/or vaping. Patient uses alcohol, occasionally. - Family history:: not pertinent. ROS: 19:40 Constitutional: Negative for fever, and chills. Neck: Negative for injury, pain, and ms3 swelling, Cardiovascular: Negative for chest pain, and palpitations. Respiratory: Negative for shortness of breath, cough, wheezing, and pleuritic chest pain, Abdomen/GI: Negative for abdominal pain, nausea, vomiting, diarrhea, and constipation, 19:40 MS/extremity: Positive for Right knee, right tib-fib, right ankle pain, Exam: 19:40 Constitutional: This is a well developed, well nourished patient who is awake, alert, ms3 and in no acute distress. Head/Face: Normocephalic, atraumatic. Chest/axilla: Normal chest wall appearance and motion. Nontender with no deformity. Cardiovascular: Regular rate and rhythm with a normal S1 and S2. No gallops, murmurs, or rubs. Normal PMI, no JVD. No pulse deficits. Respiratory: Lungs have equal breath sounds bilaterally, clear to auscultation and percussion. No rales, rhonchi or wheezes noted. No increased work of breathing, no retractions or nasal flaring. Abdomen/GI: Soft, non-tender, with normal bowel sounds. No distension or tympany. No guarding or rebound. No evidence of tenderness throughout. Skin: Warm, dry with normal turgor. Normal color with no rashes, no lesions, and no evidence of cellulitis. 19:40 Musculoskeletal/extremity: Extremities: noted in the Right knee: pain, There is no evidence of swelling, noted in the Right ankle: pain, swelling, tenderness, noted in the Right tib-fib: pain, tenderness, Vital Signs: 19:52 BP 115 / 96; Pulse 82; Resp 16; Temp 97.8; Pulse Ox 97% ; Weight 99.79 kg; Height 5 ft. vc1 2 in. ; Pain 6/10; 21:45 BP 112 / 84; Pulse 80; Resp 16; Pulse Ox 98% ; vc1 19:52 Body Mass Index 40.24 (99.79 kg, 157.48 cm) vc1 19:52 Pain Scale: Adult vc1 Darrow Coma Score: 08/29 04:43 Eye Response: spontaneous(4). Motor Response: obeys commands(6). Verbal Response: sp4 oriented(5). Total: 15. Procedures: 04:43 Splinting: Splint applied to lateral aspect of right foot, right calf, right Achilles sp4 and right heel using Ortho 3D boot, applied by myself. Examined by me, post splint application: neurovascular intact, 2+ distal pulses palpable, brisk capillary refill noted, Patient tolerated well, Crutches provided . MDM: 08/28 19:38 Patient medically screened. ms3 19:40 Differential diagnosis: contusion, fracture, sprain, strain. ms3 20:07 Transition of care: After a detail discussion of the patient's case, care is ms3 transferred to Durga Wray MD. 08/29 04:43 Data reviewed: vital signs, nurses notes, radiologic studies, plain films. ED course: sp4 EXAM DESCRIPTION: RAD - Tib Fib Right - 08/29/2023 8:44 pm CLINICAL HISTORY: Right leg pain FINDINGS: No fracture is seen. 08/28 19:40 Order name: Tib Fib Right XRAY; Complete Time: 21:04 ms3 08/28 21:12 Order name: Ortho shoe: Right Ortho boot applied by MD; Complete Time: 21:57 sp4 08/28 21:12 Order name: Crutches; Complete Time: 21:57 sp4 Administered Medications: 08/28 20:02 Drug: Ibuprofen PO 600 mg PO once Route: PO; vc1 21:58 Follow up: Response: Pain is decreased vc1 21:57 Drug: Grapeview PO 10 mg-325 mg 1 tabs PO once Route: PO; vc1 21:57 Follow up: Response: Medication administered at discharge. vc1 21:57 Drug: Methocarbamol PO 750 mg PO once Route: PO; vc1 21:57 Follow up: Response: Medication administered at discharge. vc1 Disposition Summary: 08/29/23 21:16 Discharge Ordered Problem: new sp4 Symptoms: have improved sp4 Condition: Stable sp4 Diagnosis - Contusion of right ankle sp4 - Sprain of ankle sp4 Followup: sp4 - With: Private Physician - When: 7 - 10 days - Reason: Recheck today's complaints Discharge Instructions: - Discharge Summary Sheet sp4 - Ankle Sprain, [id number] sp4 Forms: - Prescription Opioid Use sp4 Prescriptions: - Ibuprofen 800 mg Oral Tablet - take 1 tablet ORAL route every 8 hours As needed take with food; 30 tablet; sp4 Refills: 0, Product Selection Permitted - methocarbamol 750 mg Oral tablet - take 2 tablets ORAL route 3 times per day for 2 days PRN muscle soreness; 60 sp4 tablet; Refills: 0, Product Selection Permitted Signatures: Dispatcher [employer] EDMS Nomi Abdul DO DO ms3 Jennifer Martinez RN RN vc1 Durga Wray MD MD sp4 Corrections: (The following items were deleted from the chart) 19:40 19:40 Ankle Right 3 View+RAD.RAD.BRZ ordered. EDMS EDMS 20:44 19:40 Knee Right 3 View+RAD.RAD.BRZ ordered. EDMS EDMS
[2023-08-29] MEDS ORDERED: HYDROCODONE/APAP 10/325 TAB ONE (21:53)
[2023-08-29] MEDS ORDERED: methocarbamoL 750 MG TAB ONE (21:54)
[2023-08-30 06:29] VITALS: BP 115/96; TEMP 97.8; O2SAT 97
== END 2023-08-29 22:01 | disposition home or self-care (01) ==
LOC: ER 19:26
DX: S93.401A Sprain of unspecified ligament of right ankle, initial encounter (principal); W18.30XA Fall on same level, unspecified, initial encounter
CPT/HCPCS: 99283

== ENCOUNTER 2023-10-06 07:51 | Emergency (ER) | payer BC ==
--- OUTSIDE RECORDS SUMMARY | 2023-10-06 07:54 | XMS REPORT | Continuity of Care Document ---
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 Role Phone Referred, Self Attending Clinician Unavailable MAXIMILIANO_lAexi_Hector Attending Clinician Unavaila Avel Sanchez Attending Clinician [phone] MAXIMILIANO_ALYSON_Yogesh_J Attending Clinician Unavail able Referred, Self Admitting Clinician Unavailable Consuelo Admitting Clinician Unavaila sintia Bullard Admitting Clinician Unavail able Payers Payer Name Policy Type Policy Number Effective Date Expirati on Date Source [facility] [id number] 2019 00:00:00 Problems Condition Name Condition Details [...] 1 PUFFS BY MOUTH TWICE A DAY [facility] albuterol sulfate HFA 90 mcg/actuati on aerosol inhaler INHALE 1 PUFF INTO THE LUNGS EVERY 4 HOURS FOR 30 DAYS albuterol sulfate HFA 90 mcg/actuati on aerosol inhaler INHALE 1 PUFF INTO THE LUNGS EVERY 4 HOURS FOR 30 DAYS No albuterol sulfate HFA 90 mcg/actuat ion aerosol inhaler INHALE 1 PUFF INTO THE LUNGS EVERY 4 HOURS FOR [address] [facility] azelastine 137 mcg (0.1 %) nasal spray aerosol 1-2 SPRAYS EACH NOSTRIL TWICE A DAY NEEDED FOR ALLERGIES azelastine 137 mcg (0.1 %) nasal spray aerosol 1-2 SPRAYS EACH NOSTRIL TWICE A DAY NEEDED FOR ALLERGIES No azelastine 137 mcg (0.1 %) nasal spray aerosol 1-2 SPRAYS EACH NOSTRIL TWICE A DAY NEEDED FOR ALLERGIES [facility] Medical azithromyci n 250 mg tablet TAKE 2 TABLETS BY MOUTH TODAY, THEN TAKE 1 TABLET DAILY FOR 4 DAYS azithromyci n 250 mg tablet TAKE 2 TABLETS BY MOUTH TODAY, THEN TAKE 1 TABLET DAILY FOR 4 DAYS No azithromyc in 250 mg tablet TAKE 2 TABLETS BY MOUTH TODAY, THEN TAKE 1 TABLET DAILY FOR [address] [facility] Medical benzonatate 100 mg capsule TAKE 1 CAPSULE BY MOUTH THREE TIMES A DAY FOR 10 DAYS NEEDED benzonatate 100 mg capsule TAKE 1 CAPSULE BY MOUTH THREE TIMES A DAY FOR 10 DAYS NEEDED No benzonatat e 100 mg capsule TAKE 1 CAPSULE BY MOUTH THREE TIMES A DAY FOR 10 DAYS NEEDED [facility] benzonatate 200 mg capsule TAKE 1 CAPSULE BY MOUTH THREE TIMES A DAY NEEDED FOR COUGH benzonatate 200 mg capsule TAKE 1 CAPSULE BY MOUTH THREE TIMES A DAY NEEDED FOR COUGH No benzonatat e 200 mg capsule TAKE 1 CAPSULE BY MOUTH THREE TIMES A DAY NEEDED FOR COUGH [facility] Medical bromphenira mine-pseudo ephedrine-D M 2 mg-30 [...] MOUTH EVERY 6 HOURS FOR 10 DAYS [facility] clonazepam 0.5 mg tablet TAKE 1 TABLET BY MOUTH TWICE A DAY clonazepam 0.5 mg tablet TAKE 1 TABLET BY MOUTH TWICE A DAY No clonazepam 0.5 mg tablet TAKE 1 TABLET BY MOUTH TWICE A DAY [facility] cyclobenzap rine 10 mg tablet TAKE 1 TABLET BY MOUTH EVERY 8 HOURS NEEDED FOR MUSCLE SPASMS cyclobenzap rine 10 mg tablet TAKE 1 TABLET BY MOUTH EVERY 8 HOURS NEEDED FOR MUSCLE SPASMS No cyclobenza julian 10 mg tablet TAKE 1 TABLET BY MOUTH EVERY 8 HOURS NEEDED FOR MUSCLE SPASMS [facility] doxepin 50 mg capsule TAKE 1 CAPSULE (50 MG) BY MOUTH DAILY AT BEDTIME doxepin 50 mg capsule TAKE 1 CAPSULE (50 MG) BY MOUTH DAILY AT BEDTIME No doxepin 50 mg capsule TAKE 1 CAPSULE (50 MG) BY MOUTH DAILY AT BEDTIME [facility] doxepin 75 mg capsule TAKE 1 CAPSULE (75 MG) BY MOUTH DAILY AT BEDTIME doxepin 75 mg capsule TAKE 1 CAPSULE (75 MG) BY MOUTH DAILY AT BEDTIME No doxepin 75 mg capsule TAKE 1 CAPSULE (75 MG) BY MOUTH DAILY AT BEDTIME [facility] doxycycline hyclate 100 mg capsule TAKE 1 CAPSULE TWICE A DAY BY ORAL ROUTE DIRECTED FOR 7 DAYS. doxycycline hyclate 100 mg capsule TAKE 1 CAPSULE TWICE A DAY BY ORAL ROUTE DIRECTED FOR 7 DAYS. No doxycyclin e hyclate 100 mg capsule TAKE 1 CAPSULE TWICE A DAY BY ORAL ROUTE DIRECTED FOR 7 DAYS. [facility] escitalopra m 20 mg tablet TAKE 1 TABLET BY MOUTH EVERY DAY escitalopra m 20 mg tablet TAKE 1 TABLET BY MOUTH EVERY DAY No escitalopr am 20 mg tablet TAKE 1 TABLET BY MOUTH EVERY DAY [facility] fluconazole 150 mg tablet TAKE 1 TABLET BY MOUTH ON DAY 1 THEN REPEAT IN 72 HOURS fluconazole 150 mg tablet TAKE 1 TABLET BY MOUTH ON DAY 1 THEN REPEAT IN 72 HOURS No fluconazol e 150 mg tablet TAKE 1 TABLET BY MOUTH ON DAY 1 THEN REPEAT IN 72 HOURS [facility] fluconazole 200 mg tablet TAKE 1 TABLET BY MOUTH TODAY, AND REPEAT IN 72 HOURS fluconazole 200 mg tablet TAKE 1 TABLET BY MOUTH TODAY, AND REPEAT IN 72 HOURS No fluconazol e 200 mg tablet TAKE 1 TABLET BY MOUTH TODAY, AND REPEAT IN 72 HOURS [facility] gabapentin 100 mg capsule TAKE 1 CAPSULE BY MOUTH EVERY DAY FOR 30 DAYS gabapentin 100 mg capsule TAKE 1 CAPSULE BY MOUTH EVERY DAY FOR 30 DAYS No gabapentin 100 mg capsule TAKE 1 CAPSULE BY MOUTH EVERY DAY FOR 30 DAYS [facility] ipratropium bromide 42 mcg (0.06 %) nasal [...] TO 4 TIMES NEEDED FOR NASAL DRIP [facility] ketorolac 10 mg tablet TAKE 1 TABLET BY MOUTH EVERY 6 HOURS WITH FOOD OR MILK NEEDED FOR 5 DAYS ketorolac 10 mg tablet TAKE 1 TABLET BY MOUTH EVERY 6 HOURS WITH FOOD OR MILK NEEDED FOR 5 DAYS No ketorolac 10 mg tablet TAKE 1 TABLET BY MOUTH EVERY 6 HOURS WITH FOOD OR MILK NEEDED FOR 5 DAYS [facility] lamotrigine 100 mg tablet TAKE 1 & 1/2 TABLETS (150 MG) BY MOUTH DAILY lamotrigine 100 mg tablet TAKE 1 & 1/2 TABLETS (150 MG) BY MOUTH DAILY No lamotrigin e 100 mg tablet TAKE 1 & 1/2 TABLETS (150 MG) BY MOUTH DAILY [facility] lamotrigine 200 mg tablet TAKE 1 TABLET BY MOUTH EVERY DAY lamotrigine 200 mg tablet TAKE 1 TABLET BY MOUTH EVERY DAY No lamotrigin e 200 mg tablet TAKE 1 TABLET BY MOUTH EVERY DAY [facility] levofloxaci n 500 mg tablet TAKE 1 TABLET BY MOUTH EVERY DAY FOR 7 DAYS levofloxaci n 500 mg tablet TAKE 1 TABLET BY MOUTH EVERY DAY FOR 7 DAYS No levofloxac in 500 mg tablet TAKE 1 TABLET BY MOUTH EVERY DAY FOR 7 DAYS [facility] lidocaine 5 % topical patch APPLY 1 PATCH TO SKIN EVERY DAY lidocaine 5 % topical patch APPLY 1 PATCH TO SKIN EVERY DAY No lidocaine 5 % topical patch APPLY 1 PATCH TO SKIN EVERY DAY [facility] montelukast 10 mg tablet TAKE 1 TABLET BY MOUTH EVERY DAY montelukast 10 mg tablet TAKE 1 TABLET BY MOUTH EVERY DAY No montelukas t 10 mg tablet TAKE 1 TABLET BY MOUTH EVERY DAY [facility] nitrofurant oin monohydrate /macrocryst als 100 mg [...] 12 HOURS WITH FOOD FOR 7 DAYS [facility] olopatadine 0.1 % eye drops olopatadine 0.1 % eye drops No olopatadin e 0.1 % eye drops [facility] omeprazole 40 mg capsule,del ayed release TAKE [...] MINUTES BEFORE MORNING MEAL FOR 30 DAYS [facility] prednisone 20 mg tablet TAKE 2 TABLETS BY MOUTH EVERY MORNING DIRECTED prednisone 20 mg tablet TAKE 2 TABLETS BY MOUTH EVERY MORNING DIRECTED No prednisone 20 mg tablet TAKE 2 TABLETS BY MOUTH EVERY MORNING DIRECTED [facility] propranolol 20 mg tablet TAKE 1 TABLET BY MOUTH TWICE A DAY propranolol 20 mg tablet TAKE 1 TABLET BY MOUTH TWICE A DAY No propranolo l 20 mg tablet TAKE 1 TABLET BY MOUTH TWICE A DAY [facility] tamsulosin 0.4 mg capsule TAKE 1 CAPSULE BY MOUTH EVERY DAY FOR 30 DAYS tamsulosin 0.4 mg capsule TAKE 1 CAPSULE BY MOUTH EVERY DAY FOR 30 DAYS No tamsulosin 0.4 mg capsule TAKE 1 CAPSULE BY MOUTH EVERY DAY FOR 30 DAYS [facility] tinidazole 500 mg tablet Take 2 tablets every day by oral route as directed for 5 days. tinidazole 500 mg tablet Take 2 tablets every day by oral route as directed for 5 days. No tinidazole 500 mg tablet Take 2 tablets every day by oral route as directed for 5 days. [facility] tramadol 50 mg tablet TAKE 1 TABLET BY MOUTH EVERY 8 HOURS NEEDED FOR PAIN tramadol 50 mg tablet TAKE 1 TABLET BY MOUTH EVERY 8 HOURS NEEDED FOR PAIN No tramadol 50 mg tablet TAKE 1 TABLET BY MOUTH EVERY 8 HOURS NEEDED FOR PAIN [facility] Vraylar 1.5 mg capsule TAKE 1 CAPSULE [...] n Source MAMMO, screening, bilateral 2021-09-09 00:00:00 [facility] Plan of Care Planned Activity Planned Date Details Comments Source Diagnostic Test Pending 2021-09-09 00:00:00 TSH + free T4, serum [code = TSH + free T4, serum] [facility] Diagnostic Test Pending 2021-09-09 00:00:00 [place] IgE Ab [Units/volume] in Serum [code = 6195-2] [facility] Encounters Start Date/Time End Date/Time Encounter Type Admission Type Attending Clinicians Care Facility Care Department Encounter ID Source 2022-07-22 12:00:00 2022-07-22 12:00:00 Outpatient EL Referred, Self [facility] [id number] [facility] 2021-09-10 02:03:00 2021-09-10 02:03:00 Outpatient [facility]_ Cooper_J PRIV PRIV [id number] [facility] 2021-09-09 10:38:00 2021-09-09 10:38:00 Outpatient [facility] Cooper_J PRIV PRIV [id number] [facility] 2021-09-09 00:00:00 2021-09-09 00:00:00 Outpatient Avel Zuñiga PRIV PRIV [id number] 2021-09-09 00:00:00 2021-09-09 00:00:00 Avel Zuñiga MD: [address] [place] [address] , Ph. [facility] - [facility] [id number] [facility] 2021-09-07 04:34:00 2021-09-07 04:34:00 Outpatient [facility]_ Cooper_J PRIV PRIV [id number] [facility] 2021-07-09 11:40:00 2021-07-09 11:40:00 Outpatient [facility]_ Cooper_J PRIV PRIV [id number] [facility] 2021-06-09 02:02:00 2021-06-09 02:02:00 Outpatient [facility]_ Cooper_J PRIV PRIV [id number] [facility] 2021-05-13 01:01:00 2021-05-13 01:01:00 Outpatient [facility]_ Cooper_J PRIV PRIV [id number] [facility] 2020-09-30 09:49:00 2020-09-30 09:49:00 Outpatient GC_[facility] _Cooper_J PRIV PRIV [id number] [facility] 2020-09-29 01:56:00 2020-09-29 01:56:00 Outpatient GC_[facility] _Cooper_J PRIV PRIV [id number] [facility] 2020-09-23 11:40:00 2020-09-23 11:40:00 Outpatient [facility]_ Cooper_J PRIV PRIV [id number] [facility] 2020-09-23 00:00:00 2020-09-23 00:00:00 Outpatient Yogesh Avel Sigala PRIV PRIV [id number] 2020-09-23 00:00:00 2020-09-23 00:00:00 Avel Zuñiga MD: [address] [facility], [address], [place] [address] , Ph. [facility] - [facility]_ [place] Office* [id number] [facility] 2020-09-22 01:58:00 2020-09-22 01:58:00 Outpatient GC_[facility] _Cooper_J PRIV PRIV [id number] [facility] 2020-09-18 01:19:00 2020-09-18 01:19:00 Outpatient GC_[facility] _Cooper_J PRIV PRIV [id number] [facility] 2020-09-17 12:09:00 2020-09-17 12:09:00 Outpatient GC_[facility]_ Cooper_J PRIV PRIV [id number] [facility] 2020-09-12 04:00:00 2020-09-12 04:00:00 Outpatient GC_[facility]_ Cooper_J PRIV PRIV [id number] [facility] 2020-09-09 12:29:00 2020-09-09 12:29:00 Outpatient [facility]_ Cooper_J PRIV PRIV [id number] [facility] Results Test Description Test Time Test Comments Results Result Co mments Source [facility]
[2023-10-06] MEDS ORDERED: NA CHLORIDE 0.9% 1,000 ML ONE (08:05)
[2023-10-06] MEDS ORDERED: KETOROLAC 30 MG/ML INJ ONE (08:05)
[2023-10-06 08:47] LABS: Absolute Basophils 0.1 K/uL (0-0.5); Absolute Eosinophils 0.3 K/uL (0-0.5); Absolute Lymphocytes (CBC) 2.4 K/uL (0.7-4.9); Absolute Monocytes 0.4 K/uL (0.1-1.3); Absolute Neutrophil 3.9 K/uL (1.8-8.0); Eosinophils % 4.3 % (0-4.4); Hematocrit 39.9 % (36.0-45.0); Hemoglobin 13.2 g/dL (12.0-15.0); MCH 28.1 pg (27.0-35.0); MCHC 33.1 g/dL (32.0-36.0); MPV 6.7 fL (7.6-11.3); Monocytes % 6.2 % (3.3-12.3); Neutrophils % 54.5 % (41.7-73.7); Nucleated Red Blood Cells % 0.3 % (0-0); Platelets 313 thou/uL (152-406); RBC Red Blood Cell Count 4.69 M/uL (3.86-4.86); Red Cell Distribution Width 14.4 % (12.1-15.2)
[2023-10-06 08:52] LABS: Specific Gravity 1.016 (1.005-1.030); Sqamous Epithelial <5 /HPF (None Seen); Transitional Epithelial <5 /HPF (None Seen); Urine Bacteria None Seen /HPF (<20); Urine Bilirubin NEGATIVE (Negative); Urine Blood Negative (Negative); Urine Clarity Clear (Clear); Urine Color Light-Yellow (Yellow); Urine Culture Reflex Order NOT NEEDED; Urine Glucose NEGATIVE (Negative); Urine Ketones NEGATIVE (Negative); Urine Microscopic Reflex YN ORDER UMIC; Urine Mucus Slight /HPF (None Seen); Urine Nitrite NEGATIVE (Negative); Urine Protein NEGATIVE (Negative); Urine RBC <5 /HPF (None Seen); Urine Urobilinogen Normal (Normal); Urine WBC <5 /HPF (<5); Urine pH 6.5 (5.0-7.0)
[2023-10-06 08:53] LABS: Specific Gravity 1.016 (1.005-1.030)
[2023-10-06] MEDS ORDERED: CIPROFLOXACIN 400mg IV 400 MG/200 ML BAG IV ONE (09:06)
[2023-10-06] MEDS ORDERED: METRONIDAZOLE 500mg IVPB 500 MG/100 ML BAG IV ONE (09:06)
[2023-10-06 09:25] LABS: Albumin 3.6 g/dL (3.4-5.0); Bilirubin Total 0.3 mg/dL (0.2-1.0); Globulin 3.5 g/dL (2.3-3.5); Protein, Total 7.1 g/dL (6.4-8.2)
--- NOTE | 2023-10-06 09:37 | RAD REPORT ---
EXAM DESCRIPTION: CT - Abdomen Pelvis W Contrast - 10/06/2023 9:03 am CLINICAL HISTORY: Abdominal pain/rectal bleeding COMPARISON: 2021 TECHNIQUE: Computed axial tomography of the abdomen pelvis was obtained. 100 cc Isovue-300 was admin istered intravenously. Oral contrast was not requested which limits evaluation of bowel and appendix All CT scans are performed using dose optimization technique as appropriate and may include automated exposure control or mA/KV adjustment according to patient size. FINDINGS: Mild fatty liver The spleen, pancreas and adrenals unremarkable. Tiny nonobstructing bilateral renal calculi. Small to moderate umbilical hernia contains a small portion of nondilated small bowel. There is no evidence of diverticulitis. Normal appendix. Tubal ligation clips are present. No adnexal mass IMPRESSION: Mild fatty liver Tiny nonobstructing bilateral renal calculi Small to moderate umbilical hernia contains a small portion of nondilated small bowel.
--- NOTE | 2023-10-06 10:18 | ER ---
Nurse's Notes [facility] Name: Christiane Rubio Age: 42 yrs Sex: Female : 1980 Arrival Date: 10/06/2023 Time: 07:51 Bed 5 Private MD: Diagnosis: GI Bleed/ Gastrointestinal hemorrhage, unspecified-lower , stable;Abdominal pain, unspecified Presentation: 10/05 07:54 Chief complaint: Patient states: "when I wiped today there was dry bright red blood and aa5 it happened on Tuesday too". Reports abd cramping, denies nausea/vomiting. 07:54 Coronavirus screen: At this time, the client does not indicate any symptoms associated aa5 with coronavirus-19. Ebola Screen: Patient denies travel to an Ebola-affected area in the 21 days before illness onset. Initial Sepsis Screen: Does the patient meet any 2 criteria? No. Patient's initial sepsis screen is negative. Does the patient have a suspected source of infection? No. Patient's initial sepsis screen is negative. Risk Assessment: Do you want to hurt yourself or someone else? Patient reports no desire to harm self or others. Onset of symptoms was October 06, 2023. 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 - Infectious Disease History:: Denies. - Social history:: Smoking status: Reported history of juuling and/or vaping. Screenin:12 [facility] ED Fall Risk Assessment (Adult) History of falling in the last 3 months, mb9 including since admission No falls in past 3 months (0 pts) Confusion or Disorientation No (0 pts) Intoxicated or Sedated No (0 pts) Impaired Gait No (0 pts) Mobility Assist Device Used No (0 pt) Altered Elimination No (0 pt) Score/Fall Risk Level 0 - 2 = Low Risk Oriented to surroundings, Maintained a safe environment, Educated pt \\T\\ family on fall prevention, incl call for assistance when getting out of bed. Abuse screen: Denies threats or abuse. Nutritional screening: No deficits noted. Tuberculosis screening: No symptoms or risk factors identified. Assessment: 09:11 General: Appears in no apparent distress. Behavior is calm, cooperative. Pain: Denies mb9 pain. Neuro: Cabrera Agitation-Sedation Scale (RASS): 0 - Alert and Calm Level of Consciousness is awake, alert, obeys commands, Oriented to person, place, time, situation, Appropriate for age. Cardiovascular: Heart tones S1 S2 present Patient's skin is warm and dry. Rhythm is regular. Respiratory: Airway is patent Respiratory effort is even, unlabored, Respiratory pattern is regular, symmetrical, Breath sounds are clear bilaterally. GI: Abdomen is round non-distended, Bowel sounds present X 4 quads. Abd is soft and non tender X 4 quads. Reports rectal bleeding. : No signs and/or symptoms were reported regarding the genitourinary system. EENT: No signs and/or symptoms were reported regarding the EENT system. Derm: Skin is pink, warm \\T\\ dry. Musculoskeletal: Range of motion: intact in all extremities. 10:44 Reassessment: No changes from previously documented assessment. Patient and/or family mb9 updated on plan of care and expected duration. Pain level reassessed. Patient is alert, oriented x 3, equal unlabored respirations, skin warm/dry/pink. Vital Signs: 07:54 BP 138 / 99; Pulse 88; Resp 17 S; Temp 98.2(O); Pulse Ox 100% on R/A; Weight 99.79 kg aa5 (R); Height 5 ft. 2 in. (R); 09:11 BP 138 / 94; Pulse 80; Resp 16; Pulse Ox 100% on R/A; mb9 10:44 BP 133 / 87; Pulse 87; Resp 18; Pulse Ox 100% on R/A; mb9 07:54 Body Mass Index 40.24 (99.79 kg, 157.48 cm) aa5 ED Course: 07:53 Patient arrived in ED. rg4 07:54 Arm band placed on. aa5 07:57 Charmaine Trujillo RN is Primary Nurse. ph 07:58 Ronaldo Chaparro MD is Attending Physician. [facility] 08:02 Triage completed. aa5 08:38 Inserted saline lock: 20 gauge in right wrist, using aseptic technique. Blood collected.zm 08:39 Urine collected: clean catch specimen, clear. zm 08:39 Initial lab(s) drawn, by me, sent to lab. zm 08:39 CBC with Diff Sent. zm 08:39 CMP Sent. zm 08:39 Lipase Sent. zm 08:39 Test, Urine Sent. zm 08:39 Urinalysis w/ reflexes Sent. zm 09:04 CT Abd/Pelvis - IV Contrast Only In Process Unspecified. EDMS 09:12 Placed in gown. Bed in low position. Call light in reach. Side rails up X 1. Provided mb9 Education on: press call light if needing anything. Client placed on continuous cardiac and pulse oximetry monitoring. NIBP monitoring applied. Door closed. Noise minimized. Warm blanket given. Pillow given. 09:12 No provider procedures requiring assistance completed. mb9 10:17 Fritz Ruiz MD is Referral Physician. wisam 10:44 IV discontinued, intact, bleeding controlled, No redness/swelling at site. Pressure mb9 dressing applied. Administered Medications: 08:53 Drug: NS 0.9% IV 1000 ml IV at 1 bolus Per protocol; 1000 mL bolus Route: IV; Rate: 1 ld1 bolus; Site: right wrist; 09:10 Follow up: Response: No adverse reaction; IV Status: Completed infusion mb9 09:04 Drug: TORadol - Ketorolac IVP 15 mg IVP once Route: IVP; Site: right forearm; ph 09:10 Follow up: Response: No adverse reaction mb9 09:10 Drug: metroNIDAZOLE IVPB 500 mg 100 ml IVPB at 200 ml/hr once over 30 mins Volume: 100 mb9 ml; Route: IVPB; Rate: 200 ml/hr; Infused Over: 30 mins; Site: right hand; 09:42 Follow up: Response: No adverse reaction; IV Status: Completed infusion mb9 09:42 Drug: Ciprofloxacin IVPB 400 mg 200 ml IVPB once over 60 mins Volume: 200 ml; Route: mb9 IVPB; Infused Over: 60 mins; Site: right hand; 10:44 Follow up: Response: No adverse reaction; IV Status: Completed infusion mb9 Medication: 09:12 VIS not applicable for this client. mb9 Outcome: 10:17 Discharge ordered by . wisam 10:44 Discharged to home ambulatory, mb9 10:44 Condition: stable 10:44 Discharge instructions given to patient, Instructed on discharge instructions, follow up and referral plans. Demonstrated understanding of instructions, follow-up care, medications, Prescriptions given X 4, 10:45 Patient left the ED. mb9 Signatures: Dispatcher [employer] EDMT Ronaldo Chaparro MD MD cha Calderon, Audri, RN RN aa5 Charmaine Trujillo RN JOON Mckenzie, Sinai 4 Kika Abdul RN RN [email or web address] Jamila Mayes, Iris Lang RN RN mb9 Corrections: (The following items were deleted from the chart) 08:01 08:00 PSHx: tubes tied; aa5 aa5
--- NOTE | 2023-10-06 10:18 | EDPHYS ---
Physician Documentation [facility] Name: Christiane Rubio Age: 42 yrs Sex: Female : 1980 Arrival Date: 10/06/2023 Time: 07:51 Bed 5 Private MD: ED Physician Ronaldo Chaparro HPI: 10/05 10:11 This 42 yrs old Female presents to ER via Ambulatory with complaints of Rectal wisam Bleeding. 10:11 The patient presents to the emergency department with bleeding from the rectum/anus, wisam that is mild. Onset: The symptoms/episode began/occurred 2 day(s) ago. Context: the patient has no known special context relating to the rectal area complaint(s). Modifying factors: The symptoms are alleviated by nothing, The symptoms are aggravated by nothing. Associate signs and symptoms: The patient has no apparent associated signs or symptoms. The patient has not experienced similar symptoms in the past. 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 - Infectious Disease History:: Denies. - Social history:: Smoking status: Reported history of juuling and/or vaping. ROS: 10:11 Constitutional: Negative for fever, chills, and weight loss, Eyes: Negative for injury, wisam pain, redness, and discharge, ENT: Negative for injury, pain, and discharge, Neck: Negative for injury, pain, and swelling, Cardiovascular: Negative for chest pain, palpitations, and edema, Respiratory: Negative for shortness of breath, cough, wheezing, and pleuritic chest pain, Back: Negative for injury and pain, : Negative for injury, bleeding, discharge, and swelling, MS/Extremity: Negative for injury and deformity, Skin: Negative for injury, rash, and discoloration, Neuro: Negative for headache, weakness, numbness, tingling, and seizure, Psych: Negative for depression, anxiety, suicide ideation, homicidal ideation, and hallucinations, Allergy/Immunology: Negative for hives, rash, and allergies, Endocrine: Negative for neck swelling, polydipsia, polyuria, polyphagia, and marked weight changes, Hematologic/Lymphatic: Negative for swollen nodes, abnormal bleeding, and unusual bruising, 10:11 Abdomen/GI: Positive for abdominal pain, rectal bleeding, Exam: 10:11 Constitutional: This is a well developed, well nourished patient who is awake, alert, wisam and in no acute distress. Head/Face: Normocephalic, atraumatic. Eyes: Pupils equal round and reactive to light, extra-ocular motions intact. Lids and lashes normal. Conjunctiva and sclera are non-icteric and not injected. Cornea within normal limits. Periorbital areas with no swelling, redness, or edema. ENT: Nares patent. No nasal discharge, no septal abnormalities noted. Tympanic membranes are normal and external auditory canals are clear. Oropharynx with no redness, swelling, or masses, exudates, or evidence of obstruction, uvula midline. Mucous membranes moist. Neck: Trachea midline, no thyromegaly or masses palpated, and no cervical lymphadenopathy. Supple, full range of motion without nuchal rigidity, or vertebral point tenderness. No Meningismus. Chest/axilla: Normal chest wall appearance and motion. Nontender with no deformity. No lesions are appreciated. Cardiovascular: Regular rate and rhythm with a normal S1 and S2. No gallops, murmurs, or rubs. Normal PMI, no JVD. No pulse deficits. Respiratory: Lungs have equal breath sounds bilaterally, clear to auscultation and percussion. No rales, rhonchi or wheezes noted. No increased work of breathing, no retractions or nasal flaring. Back: No spinal tenderness. No costovertebral tenderness. Full range of motion. Skin: Warm, dry with normal turgor. Normal color with no rashes, no lesions, and no evidence of cellulitis. MS/ Extremity: Pulses equal, no cyanosis. Neurovascular intact. Full, normal range of motion. Neuro: Awake and alert, GCS 15, oriented to person, place, time, and situation. Cranial nerves II-XII grossly intact. Motor strength 5/5 in all extremities. Sensory grossly intact. Cerebellar exam normal. Normal gait. 10:11 Abdomen/GI: Inspection: distension, Bowel sounds: active, Palpation: mild abdominal tenderness, in the right lower quadrant and left lower quadrant, Rectal exam: rectal tone normal, Stool: normal, hemorrhoid(s), are not appreciated, mass, is not appreciated, swelling, is not appreciated, tenderness, is not appreciated, fecal impaction, is not appreciated, Liver: no appreciated palpable abnormalities, Hernia: not appreciated, Vital Signs: 07:54 BP 138 / 99; Pulse 88; Resp 17 S; Temp 98.2(O); Pulse Ox 100% on R/A; Weight 99.79 kg aa5 (R); Height 5 ft. 2 in. (R); 09:11 BP 138 / 94; Pulse 80; Resp 16; Pulse Ox 100% on R/A; mb9 10:44 BP 133 / 87; Pulse 87; Resp 18; Pulse Ox 100% on R/A; mb9 07:54 Body Mass Index 40.24 (99.79 kg, 157.48 cm) aa5 MDM: 07:58 Patient medically screened. [facility] 10:13 Differential diagnosis: hemorrhoids, fissure, abscess, pilonidal cyst. Data reviewed: [facility] vital signs, nurses notes, lab test result(s), radiologic studies, CT scan. Consideration of Admission/Observation Escalation of care including admission/observation considered. I considered the following discharge prescriptions or medication management in the emergency department Medications were administered in the Emergency Department. See MAR. Independent interpretation of the following test(s) in the Emergency Department EKG: See my EKG interpretation above. Test considered but Not performed: Ultrasound . Care significantly affected by the following chronic conditions: bipolar, anxiety, cva, mthfr. 10/05 07:59 Order name: CBC with Diff; Complete Time: 08:49 [facility] 10/05 07:59 Order name: CMP; Complete Time: 10:10 [facility] 10/05 07:59 Order name: Lipase; Complete Time: 10:10 [facility] 10/05 07:59 Order name: Test, Urine; Complete Time: 10:10 [facility] 10/05 07:59 Order name: Urinalysis w/ reflexes; Complete Time: 10:10 [facility] 10/05 10:36 Order name: CREATININE WHOLE BLOOD EDMO 10/05 07:59 Order name: CT Abd/Pelvis - IV Contrast Only; Complete Time: 10:10 [facility] 10/05 07:59 Order name: IV Saline Lock; Complete Time: 08:38 [facility] 10/05 07:59 Order name: Labs collected and sent; Complete Time: 08:38 wisam 10/05 08:51 Order name: Labs - recollect needed: green top please; Complete Time: 09:01 em1 Administered Medications: 08:53 Drug: NS 0.9% IV 1000 ml IV at 1 bolus Per protocol; 1000 mL bolus Route: IV; Rate: 1 ld1 bolus; Site: right wrist; 09:10 Follow up: Response: No adverse reaction; IV Status: Completed infusion mb9 09:04 Drug: TORadol - Ketorolac IVP 15 mg IVP once Route: IVP; Site: right forearm; ph 09:10 Follow up: Response: No adverse reaction mb9 09:10 Drug: metroNIDAZOLE IVPB 500 mg 100 ml IVPB at 200 ml/hr once over 30 mins Volume: 100 mb9 ml; Route: IVPB; Rate: 200 ml/hr; Infused Over: 30 mins; Site: right hand; 09:42 Follow up: Response: No adverse reaction; IV Status: Completed infusion mb9 09:42 Drug: Ciprofloxacin IVPB 400 mg 200 ml IVPB once over 60 mins Volume: 200 ml; Route: mb9 IVPB; Infused Over: 60 mins; Site: right hand; 10:44 Follow up: Response: No adverse reaction; IV Status: Completed infusion mb9 Disposition Summary: 10/06/23 10:17 Discharge Ordered Notes: Location: Home wisam Problem: new wisam Symptoms: have improved wisam Condition: Stable wisam Diagnosis - GI Bleed/ Gastrointestinal hemorrhage, unspecified - lower , stable wisam - Abdominal pain, unspecified wisam Followup: wisam - With: Private Physician - When: 2 - 3 days - Reason: Recheck today's complaints, Continuance of care, Re-evaluation by your physician Followup: wisam - With: Fritz Ruiz MD - When: 2 - 3 days - Reason: Recheck today's complaints, Continuance of care, Re-evaluation by your physician Discharge Instructions: - Discharge Summary Sheet wisam - Abdominal Pain, Adult wisam - Gastrointestinal Bleeding wisam - Rectal Bleeding wisam - Rectal Bleeding, [id number] wisam Forms: - Medication Reconciliation Form wisam - Antibiotic Education wisam - Prescription Opioid Use wisam - Patient Portal Instructions wisam - Leadership Thank You Letter wisam - Work release form aa5 Prescriptions: - Colace 100 mg Oral Tablet - take 1 tablet ORAL route every 12 hours; 14 tablet; Refills: 0, Product wisam Selection Permitted - Flagyl 500 mg Oral tablet - take 1 tablet ORAL route every 8 hours for 7 days; 21 tablet; Refills: 0, [facility] Product Selection Permitted - Cipro 500 mg Oral Tablet - take 1 tablet ORAL route every 12 hours for 7 days; 14 tablet; Refills: 0, [facility] Product Selection Permitted - dicyclomine 20 mg Oral tablet - take 1 tablet ORAL route 4 times per day; 28 tablet; Refills: 0, Product wisam Selection Permitted Signatures: 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
[2023-10-06 10:50] VITALS: TEMP 98.2; O2SAT 100
[2023-10-06 11:14] VITALS: BP 133/87
== END 2023-10-06 10:45 | disposition home or self-care (01) ==
LOC: ER 07:51
DX: K92.2 Gastrointestinal hemorrhage, unspecified (principal); R10.9 Unspecified abdominal pain
CPT/HCPCS: 96365; 96367; 85025; 81001; 36415; 81025; 82565; 83690; 80053; 74177; 96375; 99284; Q9967; J0744; J7030

== ENCOUNTER 2024-08-19 22:33 | Emergency (ER) | payer BC, OTHER ==
--- OUTSIDE RECORDS SUMMARY | 2024-08-19 22:36 | XMS REPORT | Continuity of Care Document ---
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 Role Phone Referred, Self Attending Clinician Unavailable MAXIMILIANO_RIANNA_Yogesh_J Attending Clinician Unavaila Avel Sanchez Attending Clinician [phone] MAXIMILIANO_ALYSON_Yogesh_J Attending Clinician Unavail able Referred, Self Admitting Clinician Unavailable MAXIMILIANO_RIANNA_Yogesh_J Admitting Clinician Unavaila sintia VIERA_ALYSON_Yogesh_J Admitting Clinician Unavail able Payers Payer Name Policy Type Policy Number Effective Date Expirati on Date Source [place] [id number] 2019 00:00:00 Problems Condition Name Condition Details Condition Category Status Onset Date Resolution Date Last Treatment Date Treating Clinician Comments Source Cerebrovas cular accident Cerebrovas cular Accident Problem Active 08-20 00:00: 00 [facility] Mood disorder Mood Disorder Problem Active 08-20 00:00: 00 [facility] Anxiety Anxiety Problem Active - 00:00: 00 [facility] Social History Smoking [...] 1 PUFFS BY MOUTH TWICE A DAY [facility] albuterol sulfate HFA 90 mcg/actuati on aerosol inhaler INHALE 1 PUFF INTO THE LUNGS EVERY 4 HOURS FOR 30 DAYS albuterol sulfate HFA 90 mcg/actuati on aerosol inhaler INHALE 1 PUFF INTO THE LUNGS EVERY 4 HOURS FOR 30 DAYS No albuterol sulfate HFA 90 mcg/actuat ion aerosol inhaler INHALE 1 PUFF INTO THE LUNGS EVERY 4 HOURS FOR 30 DAYS [facility] azelastine 137 mcg (0.1 %) nasal spray aerosol 1-2 SPRAYS EACH NOSTRIL TWICE A DAY NEEDED FOR ALLERGIES azelastine 137 mcg (0.1 %) nasal spray aerosol 1-2 SPRAYS EACH NOSTRIL TWICE A DAY NEEDED FOR ALLERGIES No azelastine 137 mcg (0.1 %) nasal spray aerosol 1-2 SPRAYS EACH NOSTRIL TWICE A DAY NEEDED FOR ALLERGIES [facility] azithromyci n 250 mg tablet TAKE 2 TABLETS BY MOUTH TODAY, THEN TAKE 1 TABLET DAILY FOR 4 DAYS azithromyci n 250 mg tablet TAKE 2 TABLETS BY MOUTH TODAY, THEN TAKE 1 TABLET DAILY FOR 4 DAYS No azithromyc in 250 mg tablet TAKE 2 TABLETS BY MOUTH TODAY, THEN TAKE 1 TABLET DAILY FOR 4 DAYS [facility] benzonatate 100 mg capsule TAKE 1 CAPSULE BY MOUTH THREE TIMES A DAY FOR 10 DAYS NEEDED benzonatate 100 mg capsule TAKE 1 CAPSULE BY MOUTH THREE TIMES A DAY FOR 10 DAYS NEEDED No benzonatat e 100 mg capsule TAKE 1 CAPSULE BY MOUTH THREE TIMES A DAY FOR 10 DAYS NEEDED [facility] benzonatate 200 mg capsule TAKE 1 CAPSULE BY MOUTH THREE TIMES A DAY NEEDED FOR COUGH benzonatate 200 mg capsule TAKE 1 CAPSULE BY MOUTH THREE TIMES A DAY NEEDED FOR COUGH No benzonatat e 200 mg capsule TAKE 1 CAPSULE BY MOUTH THREE TIMES A DAY NEEDED FOR COUGH [facility] bromphenira mine-pseudo ephedrine-D M 2 mg-30 [...] MOUTH EVERY 6 HOURS FOR 10 DAYS [facility] clonazepam 0.5 mg tablet TAKE 1 TABLET BY MOUTH TWICE A DAY clonazepam 0.5 mg tablet TAKE 1 TABLET BY MOUTH TWICE A DAY No clonazepam 0.5 mg tablet TAKE 1 TABLET BY MOUTH TWICE A DAY [facility] cyclobenzap rine 10 mg tablet TAKE 1 TABLET BY MOUTH EVERY 8 HOURS NEEDED FOR MUSCLE SPASMS cyclobenzap rine 10 mg tablet TAKE 1 TABLET BY MOUTH EVERY 8 HOURS NEEDED FOR MUSCLE SPASMS No cyclobenza julian 10 mg tablet TAKE 1 TABLET BY MOUTH EVERY 8 HOURS NEEDED FOR MUSCLE SPASMS [facility] doxepin 50 mg capsule TAKE 1 CAPSULE (50 MG) BY MOUTH DAILY AT BEDTIME doxepin 50 mg capsule TAKE 1 CAPSULE (50 MG) BY MOUTH DAILY AT BEDTIME No doxepin 50 mg capsule TAKE 1 CAPSULE (50 MG) BY MOUTH DAILY AT BEDTIME [facility] doxepin 75 mg capsule TAKE 1 CAPSULE (75 MG) BY MOUTH DAILY AT BEDTIME doxepin 75 mg capsule TAKE 1 CAPSULE (75 MG) BY MOUTH DAILY AT BEDTIME No doxepin 75 mg capsule TAKE 1 CAPSULE (75 MG) BY MOUTH DAILY AT BEDTIME [facility] doxycycline hyclate 100 mg capsule TAKE 1 CAPSULE TWICE A DAY BY ORAL ROUTE DIRECTED FOR 7 DAYS. doxycycline hyclate 100 mg capsule TAKE 1 CAPSULE TWICE A DAY BY ORAL ROUTE DIRECTED FOR 7 DAYS. No doxycyclin e hyclate 100 mg capsule TAKE 1 CAPSULE TWICE A DAY BY ORAL ROUTE DIRECTED FOR 7 DAYS. [facility] escitalopra m 20 mg tablet TAKE 1 TABLET BY MOUTH EVERY DAY escitalopra m 20 mg tablet TAKE 1 TABLET BY MOUTH EVERY DAY No escitalopr am 20 mg tablet TAKE 1 TABLET BY MOUTH EVERY DAY [facility] fluconazole 150 mg tablet TAKE 1 TABLET BY MOUTH ON DAY 1 THEN REPEAT IN 72 HOURS fluconazole 150 mg tablet TAKE 1 TABLET BY MOUTH ON DAY 1 THEN REPEAT IN 72 HOURS No fluconazol e 150 mg tablet TAKE 1 TABLET BY MOUTH ON DAY 1 THEN REPEAT IN 72 HOURS [facility] fluconazole 200 mg tablet TAKE 1 TABLET BY MOUTH TODAY, AND REPEAT IN 72 HOURS fluconazole 200 mg tablet TAKE 1 TABLET BY MOUTH TODAY, AND REPEAT IN 72 HOURS No fluconazol e 200 mg tablet TAKE 1 TABLET BY MOUTH TODAY, AND REPEAT IN 72 HOURS [facility] gabapentin 100 mg capsule TAKE 1 CAPSULE BY MOUTH EVERY DAY FOR 30 DAYS gabapentin 100 mg capsule TAKE 1 CAPSULE BY MOUTH EVERY DAY FOR 30 DAYS No gabapentin 100 mg capsule TAKE 1 CAPSULE BY MOUTH EVERY DAY FOR 30 DAYS [facility] ipratropium bromide 42 mcg (0.06 %) nasal [...] TO 4 TIMES NEEDED FOR NASAL DRIP [facility] ketorolac 10 mg tablet TAKE 1 TABLET BY MOUTH EVERY 6 HOURS WITH FOOD OR MILK NEEDED FOR 5 DAYS ketorolac 10 mg tablet TAKE 1 TABLET BY MOUTH EVERY 6 HOURS WITH FOOD OR MILK NEEDED FOR 5 DAYS No ketorolac 10 mg tablet TAKE 1 TABLET BY MOUTH EVERY 6 HOURS WITH FOOD OR MILK NEEDED FOR 5 DAYS [facility] lamotrigine 100 mg tablet TAKE 1 & 1/2 TABLETS (150 MG) BY MOUTH DAILY lamotrigine 100 mg tablet TAKE 1 & 1/2 TABLETS (150 MG) BY MOUTH DAILY No lamotrigin e 100 mg tablet TAKE 1 & 1/2 TABLETS (150 MG) BY MOUTH DAILY [facility] lamotrigine 200 mg tablet TAKE 1 TABLET BY MOUTH EVERY DAY lamotrigine 200 mg tablet TAKE 1 TABLET BY MOUTH EVERY DAY No lamotrigin e 200 mg tablet TAKE 1 TABLET BY MOUTH EVERY DAY [facility] levofloxaci n 500 mg tablet TAKE 1 TABLET BY MOUTH EVERY DAY FOR 7 DAYS levofloxaci n 500 mg tablet TAKE 1 TABLET BY MOUTH EVERY DAY FOR 7 DAYS No levofloxac in 500 mg tablet TAKE 1 TABLET BY MOUTH EVERY DAY FOR 7 DAYS [facility] lidocaine 5 % topical patch APPLY 1 PATCH TO SKIN EVERY DAY lidocaine 5 % topical patch APPLY 1 PATCH TO SKIN EVERY DAY No lidocaine 5 % topical patch APPLY 1 PATCH TO SKIN EVERY DAY [facility] montelukast 10 mg tablet TAKE 1 TABLET BY MOUTH EVERY DAY montelukast 10 mg tablet TAKE 1 TABLET BY MOUTH EVERY DAY No montelukas t 10 mg tablet TAKE 1 TABLET BY MOUTH EVERY DAY [facility] nitrofurant oin monohydrate /macrocryst als 100 mg [...] 12 HOURS WITH FOOD FOR 7 DAYS [facility] olopatadine 0.1 % eye drops olopatadine 0.1 % eye drops No olopatadin e 0.1 % eye drops [facility] omeprazole 40 mg capsule,del ayed release TAKE [...] MINUTES BEFORE MORNING MEAL FOR 30 DAYS [facility] prednisone 20 mg tablet TAKE 2 TABLETS BY MOUTH EVERY MORNING DIRECTED prednisone 20 mg tablet TAKE 2 TABLETS BY MOUTH EVERY MORNING DIRECTED No prednisone 20 mg tablet TAKE 2 TABLETS BY MOUTH EVERY MORNING DIRECTED [facility] propranolol 20 mg tablet TAKE 1 TABLET BY MOUTH TWICE A DAY propranolol 20 mg tablet TAKE 1 TABLET BY MOUTH TWICE A DAY No propranolo l 20 mg tablet TAKE 1 TABLET BY MOUTH TWICE A DAY [facility] tamsulosin 0.4 mg capsule TAKE 1 CAPSULE BY MOUTH EVERY DAY FOR 30 DAYS tamsulosin 0.4 mg capsule TAKE 1 CAPSULE BY MOUTH EVERY DAY FOR 30 DAYS No tamsulosin 0.4 mg capsule TAKE 1 CAPSULE BY MOUTH EVERY DAY FOR 30 DAYS [facility] tinidazole 500 mg tablet Take 2 tablets every day by oral route as directed for 5 days. tinidazole 500 mg tablet Take 2 tablets every day by oral route as directed for 5 days. No tinidazole 500 mg tablet Take 2 tablets every day by oral route as directed for 5 days. [facility] tramadol 50 mg tablet TAKE 1 TABLET BY MOUTH EVERY 8 HOURS NEEDED FOR PAIN tramadol 50 mg tablet TAKE 1 TABLET BY MOUTH EVERY 8 HOURS NEEDED FOR PAIN No tramadol 50 mg tablet TAKE 1 TABLET BY MOUTH EVERY 8 HOURS NEEDED FOR PAIN [facility] Vraylar 1.5 mg capsule TAKE 1 CAPSULE [...] n Source MAMMO, screening, bilateral 2021-09-09 00:00:00 [facility] Tubal Ligation [facility] Plan of Care Planned Activity Planned Date Details Comments Source Diagnostic Test Pending 2021-09-09 00:00:00 TSH + free T4, serum [code = TSH + free T4, serum] [facility] Diagnostic Test Pending 2021-09-09 00:00:00 [place] IgE Ab [Units/volume] in Serum [code = 6195-2] [facility] Encounters Start Date/Time End Date/Time Encounter Type Admission Type Attending Clinicians Care Facility Care Department Encounter ID Source 2022-07-22 12:00:00 2022-07-22 12:00:00 Outpatient EL Referred, Self [facility] [id number] 2021-09-10 02:03:00 2021-09-10 02:03:00 Outpatient [facility] Cooper_J PRIV PRIV [id number] [facility] 2021-09-09 10:38:00 2021-09-09 10:38:00 Outpatient [facility] Cooper_J PRIV PRIV [id number] [facility] 2021-09-09 00:00:00 2021-09-09 00:00:00 Outpatient Avel Zuñiga PRIV PRIV [id number] 2021-09-09 00:00:00 2021-09-09 00:00:00 Avel Zuñiga MD: [address] [place] [address] , Ph. [facility] - [facility] [id number] [facility] 2021-09-07 04:34:00 2021-09-07 04:34:00 Outpatient [facility] Cooper_J PRIV PRIV [id number] [facility] 2021-07-09 11:40:00 2021-07-09 11:40:00 Outpatient [facility] Cooper_J PRIV PRIV [id number] [facility] 2021-06-09 02:02:00 2021-06-09 02:02:00 Outpatient [facility] Cooper_J PRIV PRIV [id number] [facility] 2021-05-13 01:01:00 2021-05-13 01:01:00 Outpatient [facility]_ Cooper_J PRIV PRIV [id number] [facility] 2020-09-30 09:49:00 2020-09-30 09:49:00 Outpatient [facility] _Cooper_J PRIV PRIV [id number] [facility] 2020-09-29 01:56:00 2020-09-29 01:56:00 Outpatient [facility] _Cooper_J PRIV PRIV [id number] [facility] 2020-09-23 11:40:00 2020-09-23 11:40:00 Outpatient [facility] Cooper_J PRIV PRIV [id number] [facility] 2020-09-23 00:00:00 2020-09-23 00:00:00 Outpatient YogeshAvel PRIV PRIV [id number] 2020-09-23 00:00:00 2020-09-23 00:00:00 Avel Zuñiga MD: [id number] [facility], [address], [place] [address] , Ph. [facility] - [facility]_ [place] Office* [id number] [facility] 2020-09-22 01:58:00 2020-09-22 01:58:00 Outpatient [facility] _Cooper_J PRIV PRIV [id number] [facility] 2020-09-18 01:19:00 2020-09-18 01:19:00 Outpatient GC_[facility] _Cooper_J PRIV PRIV [id number] [facility] 2020-09-17 12:09:00 2020-09-17 12:09:00 Outpatient [facility]_ Cooper_J PRIV PRIV [id number] [facility] 2020-09-12 04:00:00 2020-09-12 04:00:00 Outpatient [facility]_ Cooper_J PRIV PRIV [id number] [facility] 2020-09-09 12:29:00 2020-09-09 12:29:00 Outpatient [facility]_ Cooper_J PRIV PRIV [id number] [facility] Results Test Description Test Time Test Comments Results Result Co mments Source [facility]
[2024-08-19] MEDS ORDERED: MORPHINE 4 MG/ML SYR ONE (23:57)
[2024-08-19] MEDS ORDERED: ONDANSETRON 4 MG/2 ML VIAL ONE (23:57)
[2024-08-19] MEDS ORDERED: NA CHLORIDE 0.9% 1,000 ML ONE (23:58)
[2024-08-20 00:08] LABS: Absolute Basophils 0.1 K/uL (0-0.5); Absolute Eosinophils 0.3 K/uL (0-0.5); Absolute Lymphocytes (CBC) 3.5 K/uL (0.7-4.9); Absolute Monocytes 0.6 K/uL (0.1-1.3); Basophils % 1.1 % (0-1.3); Eosinophils % 4.1 % (0-4.4); Hematocrit 41.3 % (36.0-45.0); Hemoglobin 13.7 g/dL (12.0-15.0); Lymphocytes % 40.8 % (15.3-44.8); MCH 27.8 pg (27.0-35.0); MCHC 33.2 g/dL (32.0-36.0); MCV 83.6 fL (80-100); MPV 6.7 fL (7.6-11.3); Monocytes % 7.3 % (3.3-12.3); Neutrophils % 46.7 % (41.7-73.7); Nucleated Red Blood Cells % 0.1 % (0-0); Platelets 323 thou/uL (152-406); RBC Red Blood Cell Count 4.94 M/uL (3.86-4.86); Red Cell Distribution Width 14.7 % (12.1-15.2)
[2024-08-20 00:23] LABS: Albumin 3.5 g/dL (3.4-5.0); Albumin/Globulin Ratio 0.9 (1.1-1.8); Anion Gap 6.7 mEq/L (5.0-15.0); Bilirubin Total 0.3 mg/dL (0.2-1.0); C-Reactive Protein 4.93 mg/L (<3.00); Globulin 3.8 g/dL (2.3-3.5); Potassium 3.7 mEq/L (3.5-5.1); Protein, Total 7.3 g/dL (6.4-8.2)
[2024-08-20 00:34] LABS: Sqamous Epithelial <5 /HPF (None Seen); Urine Bacteria None Seen /HPF (<20); Urine Bilirubin NEGATIVE (Negative); Urine Blood Trace (Negative); Urine Clarity Extremely Turbid (Clear); Urine Color Yellow (Yellow); Urine Culture Reflex Order REFLEXED; Urine Glucose NEGATIVE (Negative); Urine Ketones NEGATIVE (Negative); Urine Microscopic Reflex YN ORDER UMIC; Urine Mucus 2+ /HPF (None Seen); Urine Nitrite NEGATIVE (Negative); Urine Protein TRACE (Negative); Urine Urobilinogen Normal (Normal); Urine WBC 20-50 /HPF (<5)
--- NOTE | 2024-08-20 02:43 | RAD REPORT ---
EXAM DESCRIPTION: Abdomen Pelvis W Contrast CLINICAL HISTORY: ABD PAIN COMPARISON: 10/06/2023 TECHNIQUE: CT of the abdomen and pelvis performed following the administration of IV contrast. No ora l contrast. This exam was performed according to our departmental dose-optimization program, which includes automated exposure control, adjustment of the mA and/or kV according to patient size and/or use of iterative reconstruction technique. FINDINGS: Lung Bases: Mild bilateral dependent atelectasis. Abdomen: Liver: Mild diffuse decreased density. Small hypodense lesions superiorly at small to characterize, b ut appear unchanged, and probably represent small cysts. Gallbladder: No calcified gallstones. No significant biliary dilatation. Spleen, Pancreas, and Adrenal Glands: The spleen, pancreas, and adrenal glands are unremarkable. Kidneys: No suspicious mass. Bilateral nonobstructing renal calculi. No hydronephrosis. Vasculature: The aorta and IVC have normal caliber and position. The portal vein is patent. The pro ximal visceral and renal arteries are patent. Stomach: The stomach and duodenum have normal course. Other: No free intraperitoneal air. No free fluid or lymphadenopathy. Pelvis: Bladder: Under distended. Bowel: No dilated loops of large or small bowel. Moderate stool in the colon. Appendix: Normal appendix. Pelvis: No suspicious mass. Bones: No destructive bone lesions identified. IMPRESSION: 1. No acute abnormality on CT of the abdomen and pelvis. 2. Bilateral nonobstructing renal calculi. 3. Mild hepatic steatosis. Electronically signed by: Shea Quiñones MD 08/20/2024 01:49 AM CDT RP Due to temporary technical issues with the PACS/Playroll reporting system, reports are being citlaly d by the in-house radiologist without review as a courtesy to ensure prompt reporting the interpreting radiologist is fully responsible for the content of the report. Transcribed Date/Time: 08/20/2024 2:43 AM
--- NOTE | 2024-08-20 02:51 | EDPHYS ---
Physician Documentation [facility] Name: Christiane Rubio Age: 43 yrs Sex: Female : 1980 Arrival Date: 08/19/2024 Time: 22:33 Bed 4 Private MD: ED Physician Durga Wray HPI: 08/19 23:02 This 43 yrs old Female presents to ER via Unassigned with complaints of sp4 General complaint . 08/20 02:56 43-year-old female presents with acute pelvic pain, patient states this type of pain is sp4 recurrent she periodically has this type of pains and it handles with ibuprofen as needed. 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 - Infectious Disease History:: Denies. - Social history:: Smoking status: Reported history of juuling and/or vaping. - Family history:: not pertinent. ROS: 08/20 02:56 Constitutional: Negative for fever, chills, and weight loss, Abdomen/GI: Positive for sp4 pelvic pain All other systems are negative, Exam: 02:56 Constitutional: This is a well developed, well nourished patient who is awake, alert, sp4 and in no acute distress. Head/Face: Normocephalic, atraumatic. Eyes: Pupils equal round and reactive to light, extra-ocular motions intact. Lids and lashes normal. Conjunctiva and sclera are not injected. Cornea within normal limits. Periorbital areas with no swelling, redness, or edema. ENT: Nares patent. No nasal discharge, no septal abnormalities noted. Tympanic membranes are normal and external auditory canals are clear. Oropharynx with no redness, swelling, or masses, exudates, or evidence of obstruction, uvula midline. Mucous membranes moist. Neck: Trachea midline, no thyromegaly or masses palpated, and no cervical lymphadenopathy. Supple, full range of motion without nuchal rigidity, or vertebral point tenderness. Chest/axilla: Normal chest wall appearance and motion. Nontender with no deformity. No lesions are appreciated. Cardiovascular: Regular rate and rhythm with a normal S1 and S2. No gallops, murmurs, or rubs. Normal PMI, no JVD. No pulse deficits. Respiratory: Lungs have equal breath sounds bilaterally, clear to auscultation and percussion. No rales, rhonchi or wheezes noted. No increased work of breathing, no retractions or nasal flaring. Abdomen/GI: Soft, with normal bowel sounds. No distension or tympany. No guarding or rebound. No evidence of tenderness throughout. Back: No spinal tenderness. No costovertebral tenderness. Skin: Warm, dry with normal turgor. Normal color with no rashes, no lesions, and no evidence of cellulitis. MS/ Extremity: Pulses equal, no cyanosis. Neurovascular intact. Full, normal range of motion. Neuro: Awake and alert, GCS 15, oriented to person, place, time, and situation. Cranial nerves II-XII grossly intact. Motor strength 5/5 in all extremities. Sensory grossly intact. Psych: Awake, alert, with orientation to person, place and time. Behavior, mood, and affect are within normal limits Vital Signs: 08/19 23:09 BP 134 / 87; Pulse 88; Resp 16; Temp 98.1; Pulse Ox 96% ; Weight 90.72 kg; Height 5 ft. vc1 2 in. ; Pain 6/10; 08/20 00:24 BP 136 / 86; Pulse 93; Resp 16; Pulse Ox 94% on R/A; dd2 01:51 BP 119 / 75; Pulse 76; Resp 16; Pulse Ox 98% on R/A; dd2 03:02 BP 111 / 75; Pulse 77; Resp 16; Temp 98.2; Pulse Ox 97% on R/A; dd2 08/19 23:09 Body Mass Index 36.58 (90.72 kg, 157.48 cm) vc1 08/19 23:09 Pain Scale: Adult vc1 [place] Coma Score: 00:21 Eye Response: spontaneous(4). Motor Response: obeys commands(6). Verbal Response: dd2 oriented(5). Total: 15. 02:56 Eye Response: spontaneous(4). Motor Response: obeys commands(6). Verbal Response: sp4 oriented(5). Total: 15. MDM: 08/19 23:02 Medical Screening Exam initiated kb 08/20 02:37 ED course: EXAM DESCRIPTION: Abdomen Pelvis W Contrast CLINICAL HISTORY: ABD PAIN sp4 COMPARISON: 10/06/2023 TECHNIQUE: CT of the abdomen and pelvis performed following the administration of IV contrast. No oral contrast. This exam was performed according to our departmental dose-optimization program, which includes automated exposure control, adjustment of the mA and/or kV according to patient size and/or use of iterative reconstruction technique. FINDINGS: Lung Bases: Mild bilateral dependent atelectasis. Abdomen: Liver: Mild diffuse decreased density. Small hypodense lesions superiorly at small to characterize, but appear unchanged, and probably represent small cysts. Gallbladder: No calcified gallstones. No significant biliary dilatation. Spleen, Pancreas, and Adrenal Glands: The spleen, pancreas, and adrenal glands are unremarkable. Kidneys: No suspicious mass. Bilateral nonobstructing renal calculi. No hydronephrosis. Vasculature: The aorta and IVC have normal caliber and position. The portal vein is patent. The proximal visceral and renal arteries are patent. Stomach: The stomach and duodenum have normal course. Other: No free intraperitoneal air. No free fluid or lymphadenopathy. Pelvis: Bladder: Under distended. Bowel: No dilated loops of large or small bowel. Moderate stool in the colon. Appendix: Normal appendix. Pelvis: No suspicious mass. Bones: No destructive bone lesions identified. IMPRESSION: 1. No acute abnormality on CT of the abdomen and pelvis. 2. Bilateral nonobstructing renal calculi. 3. Mild hepatic steatosis. Electronically signed by: Shea Quiñones MD 08/20/2024 01:49 AM. 02:56 Differential Diagnosis altered mental status, sepsis, flu, Ruptured ovarian cyst. Data sp4 reviewed: vital signs, nurses notes, lab test result(s), radiologic studies, CT scan. Consideration of Admission/Observation Escalation of care including admission/observation considered. ED course: Pain resolved. Patient stable for discharge home. Advised follow-up with [employer]. 08/19 23:08 Order name: CBC with Diff; Complete Time: 02:37 sp4 08/19 23:08 Order name: CMP; Complete Time: 02:37 sp4 08/19 23:08 Order name: Lipase; Complete Time: 02:37 sp4 08/19 23:08 Order name: Test, Urine; Complete Time: 02:37 sp4 08/19 23:08 Order name: Urinalysis w/ reflexes; Complete Time: 02:37 sp4 08/19 23:09 Order name: CRP; Complete Time: 02:37 sp4 08/20 00:38 Order name: Urine Culture EDMS 08/19 23:08 Order name: CT Abd/Pelvis - IV Contrast Only sp4 08/19 23:08 Order name: IV Saline Lock; Complete Time: 00:03 sp4 08/19 23:08 Order name: Labs collected and sent; Complete Time: 00:03 sp4 Administered Medications: 00:03 Drug: Ondansetron IVP 8 mg IVP once; over 2 minutes Route: IVP; Site: left antecubital; dd2 00:18 Follow up: Response: No adverse reaction dd2 00:03 Drug: morphine IVP or IV 4 mg IVP once over 4 mins Route: IVP; Infused Over: 4 mins; dd2 Site: left antecubital; 00:18 Follow up: Response: No adverse reaction dd2 00:03 Drug: NS 0.9% IV 1000 ml IV at 1 bolus Per protocol; to be given as a bolus over 60 dd2 minutes Route: IV; Rate: 1 bolus; Site: left antecubital; 01:05 Follow up: IV Status: Completed infusion; IV Intake: 1000ml dd2 Disposition Summary: 08/20/24 02:50 Discharge Ordered Notes: Location: Home sp4 Problem: new sp4 Symptoms: have improved sp4 Condition: Stable sp4 Diagnosis - Pelvic and perineal pain sp4 - Recurrent pelvic pain in female sp4 Followup: sp4 - With: Private Physician - When: 7 - 10 days - Reason: Recheck today's complaints Discharge Instructions: - Discharge Summary Sheet sp4 - Pelvic Pain, Female, [id number] sp4 Forms: - Patient Portal Instructions sp4 - Work release form dd2 Prescriptions: - naproxen 500 mg Oral tablet - take 1 tablet ORAL route every 12 hours PRN pain; 50 tablet; Refills: 0, sp4 Product Selection Permitted - Cephalexin 500 mg Oral Capsule - take 1 capsule ORAL route every 12 hours for 10 days; 20 capsule; Refills: 0, sp4 Product Selection Permitted - Tramadol 50 mg Oral Tablet - take 1 tablet ORAL route every 8 hours as needed; 12 tablet; Refills: 0, sp4 Product Selection Permitted - dicyclomine 20 mg Oral tablet - take 1 tablet ORAL route 4 times per day PRN crampy pain; 30 tablet; Refills: sp4 0, Product Selection Permitted - ondansetron 8 mg Oral Tablet,disintegrating - take 1 tablet ORAL route every 8 hours PRN nausea; 30 tablet; Refills: 0, sp4 Product Selection Permitted Signatures: Dispatcher [employer] Odalys Martínez, JESÚSC MARIBELL-Jennifer Sarkar RN RN vc1 Durga Wray MD MD sp4 MIN CASAREZ RN RN dd2
--- NOTE | 2024-08-20 02:51 | ER ---
Nurse's Notes [facility] Name: Christiane Rubio Age: 43 yrs Sex: Female : 1980 Arrival Date: 08/19/2024 Time: 22:33 Bed 4 Private MD: Diagnosis: Pelvic and perineal pain;Recurrent pelvic pain in female Presentation: 08/19 23:07 Chief complaint: Patient states: left lower abdominal pain. Coronavirus screen: Client vc1 denies travel out of the [place] in the last 14 days. At this time, the client does not indicate any symptoms associated with coronavirus-19. Ebola Screen: Patient negative for fever greater than or equal to 101.5 degrees Fahrenheit, and additional compatible Ebola Virus Disease symptoms Patient denies exposure to infectious person. Patient denies travel to an Ebola-affected area in the 21 days before illness onset. No symptoms or risks identified at this time. Initial Sepsis Screen: Does the patient meet any 2 criteria? No. Patient's initial sepsis screen is negative. Does the patient have a suspected source of infection? No. Patient's initial sepsis screen is negative. Risk Assessment: Do you want to hurt yourself or someone else? Patient reports no desire to harm self or others. Onset of symptoms was August 19, 2024. Care prior to arrival: Medication(s) given: Motrin, 800 mg. 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 - Infectious Disease History:: Denies. - Social history:: Smoking status: Reported history of juuling and/or vaping. - Family history:: not pertinent. Screenin/24 00:21 [facility] ED Fall Risk Assessment (Adult) History of falling in the last 3 months, dd2 including since admission No falls in past 3 months (0 pts) Confusion or Disorientation No (0 pts) Intoxicated or Sedated No (0 pts) Impaired Gait No (0 pts) Mobility Assist Device Used No (0 pt) Altered Elimination No (0 pt) Score/Fall Risk Level 0 - 2 = Low Risk Oriented to surroundings, Maintained a safe environment, Educated pt \T\ family on fall prevention, incl call for assistance when getting out of bed, Assessed \T\ reinforced patient's understanding of fall precautions, Hourly rounding (assess needs \T\ fall precautionary measures) done. Abuse screen: Denies threats or abuse. Denies injuries from another. Nutritional screening: No deficits noted. Tuberculosis screening: No symptoms or risk factors identified. Assessment: 00:21 General: Appears in no apparent distress. uncomfortable, Behavior is calm, cooperative, dd2 appropriate for age. Pain: Complains of pain in left lower quadrant Pain does not radiate. Pain currently is 7 out of 10 on a pain scale. Quality of pain is described as aching, stabbing, Pain began 1 day ago. Neuro: Cabrera Agitation-Sedation Scale (RASS): 0 - Alert and Calm Level of Consciousness is awake, alert, obeys commands, Oriented to person, place, time, situation, Appropriate for age. Cardiovascular: Patient's skin is warm and dry. Respiratory: Airway is patent Respiratory effort is even, unlabored, Respiratory pattern is regular, symmetrical. GI: Abdomen is non-distended, obese, Bowel sounds present X 4 quads. Abd is soft X 4 quads Abdomen is tender to palpation in left lower quadrant Reports lower abdominal pain, cramping, Patient currently denies diarrhea, nausea, vomiting. : No deficits noted. No signs and/or symptoms were reported regarding the genitourinary system. Urine is cloudy, Reports HX OF KIDNEY STONES. EENT: No deficits noted. No signs and/or symptoms were reported regarding the EENT system. Derm: No deficits noted. No signs and/or symptoms reported regarding the dermatologic system. Musculoskeletal: No deficits noted. No signs and/or symptoms reported regarding the musculoskeletal system. Circulation, motion, and sensation intact. Range of motion: intact in all extremities. Vital Signs: 08/19 23:09 BP 134 / 87; Pulse 88; Resp 16; Temp 98.1; Pulse Ox 96% ; Weight 90.72 kg; Height 5 ft. vc1 2 in. ; Pain 6/10; 03/24 00:24 BP 136 / 86; Pulse 93; Resp 16; Pulse Ox 94% on R/A; dd2 01:51 BP 119 / 75; Pulse 76; Resp 16; Pulse Ox 98% on R/A; dd2 03:02 BP 111 / 75; Pulse 77; Resp 16; Temp 98.2; Pulse Ox 97% on R/A; dd2 08/19 23:09 Body Mass Index 36.58 (90.72 kg, 157.48 cm) vc1 08/19 23:09 Pain Scale: Adult vc1 Creede Coma Score: 00:21 Eye Response: spontaneous(4). Motor Response: obeys commands(6). Verbal Response: dd2 oriented(5). Total: 15. 02:56 Eye Response: spontaneous(4). Motor Response: obeys commands(6). Verbal Response: sp4 oriented(5). Total: 15. ED Course: 08/19 23:02 Patient arrived in ED. jj6 23:02 Odalys Zepeda FNP-C [facility]. kb 23:02 Durga Wray MD is Attending Physician. kb 23:08 Triage completed. vc1 23:09 Arm band placed on right wrist. vc1 23:53 Jennifer Martinez RN is Primary Nurse. vc1 08/20 00:03 No provider procedures requiring assistance completed. Initial lab(s) drawn, by me, dd2 sent to lab. Urine collected: clean catch specimen, arias colored. Inserted saline lock: 20 gauge in left antecubital area, using aseptic technique. Blood collected. Flushed with 10 mL NS. Patient maintains SpO2 saturation greater than 95% on room air. 00:21 Patient has correct armband on for positive identification. Bed in low position. Call dd2 light in reach. Side rails up X 1. Provided Education on: LABS, MEDICATIONS. Client placed on continuous cardiac and pulse oximetry monitoring. NIBP monitoring applied. Door closed. Noise minimized. Warm blanket given. Pillow given. Verbal reassurance given. 00:53 CT Abd/Pelvis - IV Contrast Only In Process Unspecified. EDMS 03:26 IV discontinued, intact, bleeding controlled, No redness/swelling at site. Pressure dd2 dressing applied. Administered Medications: 00:03 Drug: Ondansetron IVP 8 mg IVP once; over 2 minutes Route: IVP; Site: left antecubital; dd2 00:18 Follow up: Response: No adverse reaction dd2 00:03 Drug: morphine IVP or IV 4 mg IVP once over 4 mins Route: IVP; Infused Over: 4 mins; dd2 Site: left antecubital; 00:18 Follow up: Response: No adverse reaction dd2 00:03 Drug: NS 0.9% IV 1000 ml IV at 1 bolus Per protocol; to be given as a bolus over 60 dd2 minutes Route: IV; Rate: 1 bolus; Site: left antecubital; 01:05 Follow up: IV Status: Completed infusion; IV Intake: 1000ml dd2 Medication: 00:21 VIS not applicable for this client. dd2 Intake: 01:05 IV: 1000ml; Total: 1000ml. dd2 Outcome: 02:50 Discharge ordered by . sp4 03:26 Discharged to home ambulatory, dd2 03:26 Condition: improved 03:26 Discharge instructions given to patient, Instructed on discharge instructions, follow up and referral plans. medication usage, Demonstrated understanding of instructions, follow-up care, medications, Prescriptions given X X5 03:27 Patient left the ED. dd2 Signatures: Dispatcher [employer] EDMS Odalys Zepeda, [employer]-Bijal Gomez [id number] Jennifer Martinez RN RN vc1 Durga Wray MD MD sp4 MIN CASAREZ RN RN dd2
[2024-08-20 03:54] VITALS: BP 111/75; TEMP 98.2; O2SAT 97
== END 2024-08-20 03:27 | disposition home or self-care (01) ==
LOC: ER 22:33
DX: R10.2 Pelvic and perineal pain (principal)
CPT/HCPCS: 96361; 87088; 85025; 81001; 87086; 36415; 81025; 83690; 80053; 86140; 74177; 96375; 96374; 99284; Q9967; J2405; J7030

== ENCOUNTER 2024-09-20 11:07 | Emergency (ER) | payer OTHER ==
--- OUTSIDE RECORDS SUMMARY | 2024-09-20 11:11 | XMS REPORT | Continuity of Care Document ---
Author Name Unknown Address [address] [place] [address] [address] [place] [address] [facility] [place] Address [address] [place] [address] [address] [place] [address] Care Team Providers Care Baker Bench Name Role Phone Referred, Self Attending Clinician Unavailable MAXIMILIANO_RIANNA_Yogesh_J Attending Clinician Unavaila Avel Sanchez Attending Clinician [phone] MAXIMILIANO_ALYSON_Yogesh_J Attending Clinician Unavail able Referred, Self Admitting Clinician Unavailable MAXIMILIANO_RIANNA_Yogesh_J Admitting Clinician Unavaila sintia VIERA_ALYSON_Yogesh_J Admitting Clinician Unavail able Payers Payer Name Policy Type Policy Number Effective Date Expirati on Date Source [place] [id number] 2019 00:00:00 Problems Condition Name Condition Details [...] 1 PUFFS BY MOUTH TWICE A DAY [facility] albuterol sulfate HFA 90 mcg/actuati on aerosol inhaler INHALE 1 PUFF INTO THE LUNGS EVERY 4 HOURS FOR 30 DAYS albuterol sulfate HFA 90 mcg/actuati on aerosol inhaler INHALE 1 PUFF INTO THE LUNGS EVERY 4 HOURS FOR 30 DAYS No albuterol sulfate HFA 90 mcg/actuat ion aerosol inhaler INHALE 1 PUFF INTO THE LUNGS EVERY 4 HOURS FOR 30 DAYS [facility] azelastine 137 mcg (0.1 %) nasal spray aerosol 1-2 SPRAYS EACH NOSTRIL TWICE A DAY NEEDED FOR ALLERGIES azelastine 137 mcg (0.1 %) nasal spray aerosol 1-2 SPRAYS EACH NOSTRIL TWICE A DAY NEEDED FOR ALLERGIES No azelastine 137 mcg (0.1 %) nasal spray aerosol 1-2 SPRAYS EACH NOSTRIL TWICE A DAY NEEDED FOR ALLERGIES [facility] azithromyci n 250 mg tablet TAKE 2 TABLETS BY MOUTH TODAY, THEN TAKE 1 TABLET DAILY FOR 4 DAYS azithromyci n 250 mg tablet TAKE 2 TABLETS BY MOUTH TODAY, THEN TAKE 1 TABLET DAILY FOR 4 DAYS No azithromyc in 250 mg tablet TAKE 2 TABLETS BY MOUTH TODAY, THEN TAKE 1 TABLET DAILY FOR 4 DAYS [facility] benzonatate 100 mg capsule TAKE 1 CAPSULE BY MOUTH THREE TIMES A DAY FOR 10 DAYS NEEDED benzonatate 100 mg capsule TAKE 1 CAPSULE BY MOUTH THREE TIMES A DAY FOR 10 DAYS NEEDED No benzonatat e 100 mg capsule TAKE 1 CAPSULE BY MOUTH THREE TIMES A DAY FOR 10 DAYS NEEDED [facility] benzonatate 200 mg capsule TAKE 1 CAPSULE BY MOUTH THREE TIMES A DAY NEEDED FOR COUGH benzonatate 200 mg capsule TAKE 1 CAPSULE BY MOUTH THREE TIMES A DAY NEEDED FOR COUGH No benzonatat e 200 mg capsule TAKE 1 CAPSULE BY MOUTH THREE TIMES A DAY NEEDED FOR COUGH [facility] bromphenira mine-pseudo ephedrine-D M 2 mg-30 [...] MOUTH EVERY 6 HOURS FOR 10 DAYS [facility] clonazepam 0.5 mg tablet TAKE 1 TABLET BY MOUTH TWICE A DAY clonazepam 0.5 mg tablet TAKE 1 TABLET BY MOUTH TWICE A DAY No clonazepam 0.5 mg tablet TAKE 1 TABLET BY MOUTH TWICE A DAY [facility] cyclobenzap rine 10 mg tablet TAKE 1 TABLET BY MOUTH EVERY 8 HOURS NEEDED FOR MUSCLE SPASMS cyclobenzap rine 10 mg tablet TAKE 1 TABLET BY MOUTH EVERY 8 HOURS NEEDED FOR MUSCLE SPASMS No cyclobenza juilan 10 mg tablet TAKE 1 TABLET BY MOUTH EVERY 8 HOURS NEEDED FOR MUSCLE SPASMS [facility] doxepin 50 mg capsule TAKE 1 CAPSULE (50 MG) BY MOUTH DAILY AT BEDTIME doxepin 50 mg capsule TAKE 1 CAPSULE (50 MG) BY MOUTH DAILY AT BEDTIME No doxepin 50 mg capsule TAKE 1 CAPSULE (50 MG) BY MOUTH DAILY AT BEDTIME [facility] doxepin 75 mg capsule TAKE 1 CAPSULE (75 MG) BY MOUTH DAILY AT BEDTIME doxepin 75 mg capsule TAKE 1 CAPSULE (75 MG) BY MOUTH DAILY AT BEDTIME No doxepin 75 mg capsule TAKE 1 CAPSULE (75 MG) BY MOUTH DAILY AT BEDTIME [facility] doxycycline hyclate 100 mg capsule TAKE 1 CAPSULE TWICE A DAY BY ORAL ROUTE DIRECTED FOR 7 DAYS. doxycycline hyclate 100 mg capsule TAKE 1 CAPSULE TWICE A DAY BY ORAL ROUTE DIRECTED FOR 7 DAYS. No doxycyclin e hyclate 100 mg capsule TAKE 1 CAPSULE TWICE A DAY BY ORAL ROUTE DIRECTED FOR 7 DAYS. [facility] escitalopra m 20 mg tablet TAKE 1 TABLET BY MOUTH EVERY DAY escitalopra m 20 mg tablet TAKE 1 TABLET BY MOUTH EVERY DAY No escitalopr am 20 mg tablet TAKE 1 TABLET BY MOUTH EVERY DAY [facility] fluconazole 150 mg tablet TAKE 1 TABLET BY MOUTH ON DAY 1 THEN REPEAT IN 72 HOURS fluconazole 150 mg tablet TAKE 1 TABLET BY MOUTH ON DAY 1 THEN REPEAT IN 72 HOURS No fluconazol e 150 mg tablet TAKE 1 TABLET BY MOUTH ON DAY 1 THEN REPEAT IN 72 HOURS [facility] fluconazole 200 mg tablet TAKE 1 TABLET BY MOUTH TODAY, AND REPEAT IN 72 HOURS fluconazole 200 mg tablet TAKE 1 TABLET BY MOUTH TODAY, AND REPEAT IN 72 HOURS No fluconazol e 200 mg tablet TAKE 1 TABLET BY MOUTH TODAY, AND REPEAT IN 72 HOURS [facility] gabapentin 100 mg capsule TAKE 1 CAPSULE BY MOUTH EVERY DAY FOR 30 DAYS gabapentin 100 mg capsule TAKE 1 CAPSULE BY MOUTH EVERY DAY FOR 30 DAYS No gabapentin 100 mg capsule TAKE 1 CAPSULE BY MOUTH EVERY DAY FOR 30 DAYS [facility] ipratropium bromide 42 mcg (0.06 [...] TO 4 TIMES NEEDED FOR NASAL DRIP [facility] ketorolac 10 mg tablet TAKE 1 TABLET BY MOUTH EVERY 6 HOURS WITH FOOD OR MILK NEEDED FOR 5 DAYS ketorolac 10 mg tablet TAKE 1 TABLET BY MOUTH EVERY 6 HOURS WITH FOOD OR MILK NEEDED FOR 5 DAYS No ketorolac 10 mg tablet TAKE 1 TABLET BY MOUTH EVERY 6 HOURS WITH FOOD OR MILK NEEDED FOR 5 DAYS [facility] lamotrigine 100 mg tablet TAKE 1 & 1/2 TABLETS (150 MG) BY MOUTH DAILY lamotrigine 100 mg tablet TAKE 1 & 1/2 TABLETS (150 MG) BY MOUTH DAILY No lamotrigin e 100 mg tablet TAKE 1 & 1/2 TABLETS (150 MG) BY MOUTH DAILY [facility] lamotrigine 200 mg tablet TAKE 1 TABLET BY MOUTH EVERY DAY lamotrigine 200 mg tablet TAKE 1 TABLET BY MOUTH EVERY DAY No lamotrigin e 200 mg tablet TAKE 1 TABLET BY MOUTH EVERY DAY [facility] levofloxaci n 500 mg tablet TAKE 1 TABLET BY MOUTH EVERY DAY FOR 7 DAYS levofloxaci n 500 mg tablet TAKE 1 TABLET BY MOUTH EVERY DAY FOR 7 DAYS No levofloxac in 500 mg tablet TAKE 1 TABLET BY MOUTH EVERY DAY FOR 7 DAYS [facility] lidocaine 5 % topical patch APPLY 1 PATCH TO SKIN EVERY DAY lidocaine 5 % topical patch APPLY 1 PATCH TO SKIN EVERY DAY No lidocaine 5 % topical patch APPLY 1 PATCH TO SKIN EVERY DAY [facility] montelukast 10 mg tablet TAKE 1 TABLET BY MOUTH EVERY DAY montelukast 10 mg tablet TAKE 1 TABLET BY MOUTH EVERY DAY No montelukas t 10 mg tablet TAKE 1 TABLET BY MOUTH EVERY DAY [facility] nitrofurant oin monohydrate /macrocryst als [...] 12 HOURS WITH FOOD FOR 7 DAYS [facility] olopatadine 0.1 % eye drops olopatadine 0.1 % eye drops No olopatadin e 0.1 % eye drops [facility] omeprazole 40 mg capsule,del ayed [...] MINUTES BEFORE MORNING MEAL FOR 30 DAYS [facility] prednisone 20 mg tablet TAKE 2 TABLETS BY MOUTH EVERY MORNING DIRECTED prednisone 20 mg tablet TAKE 2 TABLETS BY MOUTH EVERY MORNING DIRECTED No prednisone 20 mg tablet TAKE 2 TABLETS BY MOUTH EVERY MORNING DIRECTED [facility] propranolol 20 mg tablet TAKE 1 TABLET BY MOUTH TWICE A DAY propranolol 20 mg tablet TAKE 1 TABLET BY MOUTH TWICE A DAY No propranolo l 20 mg tablet TAKE 1 TABLET BY MOUTH TWICE A DAY [facility] tamsulosin 0.4 mg capsule TAKE 1 CAPSULE BY MOUTH EVERY DAY FOR 30 DAYS tamsulosin 0.4 mg capsule TAKE 1 CAPSULE BY MOUTH EVERY DAY FOR 30 DAYS No tamsulosin 0.4 mg capsule TAKE 1 CAPSULE BY MOUTH EVERY DAY FOR 30 DAYS [facility] tinidazole 500 mg tablet Take 2 tablets every day by oral route as directed for 5 days. tinidazole 500 mg tablet Take 2 tablets every day by oral route as directed for 5 days. No tinidazole 500 mg tablet Take 2 tablets every day by oral route as directed for 5 days. [facility] tramadol 50 mg tablet TAKE 1 TABLET BY MOUTH EVERY 8 HOURS NEEDED FOR PAIN tramadol 50 mg tablet TAKE 1 TABLET BY MOUTH EVERY 8 HOURS NEEDED FOR PAIN No tramadol 50 mg tablet TAKE 1 TABLET BY MOUTH EVERY 8 HOURS NEEDED FOR PAIN [facility] Vraylar 1.5 mg capsule TAKE [...] n Source MAMMO, screening, bilateral 2021-09-09 00:00:00 [facility] Plan of Care Planned Activity Planned Date Details Comments Source Diagnostic Test Pending 2021-09-09 00:00:00 TSH + free T4, serum [code = TSH + free T4, serum] [facility] Diagnostic Test Pending 2021-09-09 00:00:00 [place] IgE Ab [Units/volume] in Serum [code = 6195-2] [facility] Encounters Start Date/Time End Date/Time Encounter Type Admission Type Attending Clinicians Care Facility Care Department Encounter ID Source 2022-07-22 12:00:00 2022-07-22 12:00:00 Outpatient EL Referred, Self [facility] [id number] [facility] 2021-09-10 02:03:00 2021-09-10 02:03:00 Outpatient [facility]_ Cooper_J PRIV PRIV [id number] [facility] 2021-09-09 10:38:00 2021-09-09 10:38:00 Outpatient [facility] Cooper_J PRIV PRIV [id number] [facility] 2021-09-09 00:00:00 2021-09-09 00:00:00 Outpatient Avel Zuñiga PRIV PRIV [id number] 2021-09-09 00:00:00 2021-09-09 00:00:00 Avel Zuñiga MD: [address] [place] [address] , Ph. [facility] - [facility] [id number] [facility] 2021-09-07 04:34:00 2021-09-07 04:34:00 Outpatient [facility]_ Cooper_J PRIV PRIV [id number] [facility] 2021-07-09 11:40:00 2021-07-09 11:40:00 Outpatient [facility]_ Cooper_J PRIV PRIV [id number] [facility] 2021-06-09 02:02:00 2021-06-09 02:02:00 Outpatient [facility]_ Cooper_J PRIV PRIV [id number] [facility] 2021-05-13 01:01:00 2021-05-13 01:01:00 Outpatient [facility]_ Cooper_J PRIV PRIV [id number] [facility] 2020-09-30 09:49:00 2020-09-30 09:49:00 Outpatient GC_[facility] _Cooper_J PRIV PRIV [id number] [facility] 2020-09-29 01:56:00 2020-09-29 01:56:00 Outpatient GC_[facility] _Cooper_J PRIV PRIV [id number] [facility] 2020-09-23 11:40:00 2020-09-23 11:40:00 Outpatient [facility]_ Cooper_J PRIV PRIV [id number] [facility] 2020-09-23 00:00:00 2020-09-23 00:00:00 Outpatient YogeshAvel PRIV PRIV [id number] 2020-09-23 00:00:00 2020-09-23 00:00:00 Avel Zuñiga MD: [address] [facility], [address], [place] [address] , Ph. [facility] - [facility]_ [place] Office* [id number] [facility] 2020-09-22 01:58:00 2020-09-22 01:58:00 Outpatient GC_[facility] _Cooper_J PRIV PRIV [id number] [facility] 2020-09-18 01:19:00 2020-09-18 01:19:00 Outpatient GC_[facility] _Cooper_J PRIV PRIV [id number] [facility] 2020-09-17 12:09:00 2020-09-17 12:09:00 Outpatient [facility]_ Cooper_J PRIV PRIV [id number] [facility] 2020-09-12 04:00:00 2020-09-12 04:00:00 Outpatient [facility]_ Cooper_J PRIV PRIV [id number] [facility] 2020-09-09 12:29:00 2020-09-09 12:29:00 Outpatient [facility]_ Cooper_J PRIV PRIV [id number] [facility] Results Test Description Test Time Test Comments Results Result Co mments Source [facility]
--- NOTE | 2024-09-20 12:47 | RAD REPORT ---
EXAM: CT brain without contrast HISTORY: Headache COMPARISON: 2022 TECHNIQUE: Multiple contiguous axial images were obtained and a CT of the brain without contrast.. Sagittal and coronal reconstruction performed. Automated exposure control, adjustment of the mA and/or kV according to patient size, and/or iterative reconstruction. Unless otherwise specified, incidental f indings do not require dedicated imaging follow-up FINDINGS: An intracranial bleed is not seen Ventricles are normal caliber No extra-axial fluid collection noted No significant hypodensity within the brain No fluid within the visualized sinuses or mastoids noted. IMPRESSION: No acute intracranial abnormality noted. If the patient continues to have symptoms to suggest an acute intracranial abnormality then MRI of th e brain would be recommended.
[2024-09-20] MEDS ORDERED: METOCLOPRAMIDE 10 MG/2mL INJ ONE (13:47)
[2024-09-20] MEDS ORDERED: KETOROLAC 30 MG/ML INJ ONE (13:47)
[2024-09-20] MEDS ORDERED: dexAMETHasone 10 MG/ML VIAL ONE (13:47)
[2024-09-20] MEDS ORDERED: DIPHENHYDRAMINE 50 MG/ML VIAL ONE (13:47)
[2024-09-20] MEDS ORDERED: NA CHLORIDE 0.9% 1,000 ML ONE (13:48)
--- NOTE | 2024-09-20 14:54 | EDPHYS ---
Physician Documentation [facility] Name: Christiane Rubio Age: 43 yrs Sex: Female : 1980 Arrival Date: 09/20/2024 Time: 11:07 Bed 17 Private MD: ED Physician Ana Lu HPI: 09/20 11:27 This 43 yrs old Female presents to ER via Ambulatory with complaints of sw6 Headache, Nausea, Diarrhea. 12:01 The patient presents from home for evaluation for nausea and diarrhea that started sw6 yesterday. She reports symptoms are with a frontal headache this morning. No injury or trauma. No fevers or chills. No neck pain or stiffness. No medication taken prior to arrival. No vomiting. She does have a history of headaches and reports this somewhat feels like her normal headache. She reports bright lights does make her head feel worse. No blurry vision. No weakness to her arms or legs. She reports history of previous stroke as well as anxiety, depression and bipolar disorder. Here for evaluation. 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 - Infectious Disease History:: Denies. - Social history:: Smoking status: Reported history of juuling and/or vaping. ROS: 12:01 Cardiovascular: Negative for chest pain, palpitations, and edema, Respiratory: Negative sw6 for shortness of breath, cough, wheezing, and pleuritic chest pain, 12:01 Constitutional: Positive for Headache, 12:01 Abdomen/GI: Positive for nausea, diarrhea, Negative for vomiting, 12:01 All other systems are negative, Exam: 12:01 Constitutional: This is a well developed, well nourished patient who is awake, alert, sw6 and in no acute distress. Chest/axilla: Normal chest wall appearance and motion. Nontender with no deformity. No lesions are appreciated. Cardiovascular: Regular rate and rhythm with a normal S1 and S2. No gallops, murmurs, or rubs. Normal PMI, no JVD. No pulse deficits. Respiratory: Lungs have equal breath sounds bilaterally, clear to auscultation and percussion. No rales, rhonchi or wheezes noted. No increased work of breathing, no retractions or nasal flaring. Abdomen/GI: Soft, non-tender, with normal bowel sounds. No distension or tympany. No guarding or rebound. No evidence of tenderness throughout. 12:01 Neuro: The patient is awake, alert and oriented x 3. No facial asymmetry. Handgrip right equals left. Muscle strength is 5/5 to upper extremities bilaterally. Steady gait. Speech is clear., Vital Signs: 11:21 BP 130 / 85; Pulse 94; Resp 16; Pulse Ox 98% on R/A; ss 11:24 Temp 98.2(O); Weight 99.34 kg; Height 5 ft. 2 in. ; Pain 6/10; ss 13:30 BP 132 / 84; Pulse 92; Resp 18; Pulse Ox 100% on R/A; kj2 14:59 BP 130 / 80; Pulse 88; Resp 20; Temp 98; Pulse Ox 100% ; kj2 11:24 Body Mass Index 40.06 (99.34 kg, 157.48 cm) ss 11:24 Pain Scale: Adult ss NIH Stroke Scale Scores: 12:01 NIHSS Score: 0 MDM: 12:01 Differential diagnosis: migraine, tension headache. 12:53 Medical Screening Exam initiated 14:53 Data reviewed: radiologic studies, CT scan. ED course: The patient is doing well in the [facility] ER. The CT of her head is unremarkable. Her headache has resolved after the administration of medications given above. She remained stable here in the ER and is okay for discharge home with PCP follow-up.. 09/20 11:26 Order name: CT Head Brain wo Cont; Complete Time: 12:53 [facility] 09/20 12:53 Interpretation: No acute disease. 09/20 11:26 Order name: IV Start; Complete Time: 13:57 [facility] Administered Medications: 14:02 Drug: metoCLOPramide IVP 10 mg IVP once; over 1 to 2 minutes Route: IVP; Site: left kj2 forearm; 14:58 Follow up: Response: No adverse reaction kj2 14:02 Drug: diphenhydrAMINE IVP 12.5 mg IVP once Route: IVP; Site: left forearm; kj2 14:58 Follow up: Response: No adverse reaction kj2 14:02 Drug: Ketorolac IVP 10 mg 10 mg IVP once Route: IVP; Site: left forearm; kj2 14:58 Follow up: Response: No adverse reaction kj2 14:02 Drug: Decadron - Dexamethasone IVP 10 mg IVP once Route: IVP; Site: left forearm; kj2 14:58 Follow up: Response: No adverse reaction kj2 14:02 Drug: NS 0.9% IV 1000 ml IV at 1000 ml once; to be given as a bolus over 60 minutes kj2 Route: IV; Rate: 1000 ml; Site: left forearm; 14:59 Follow up: IV Status: Completed infusion; IV Intake: 1000ml kj2 Disposition Summary: 09/20/24 14:54 Discharge Ordered Notes: Location: Home 6 Condition: Stable sw Diagnosis - Headache sw6 Followup: sw6 - With: Private Physician - When: 2 - 3 days - Reason: Discharge Instructions: - Discharge Summary Sheet sw6 - General Headache Without Cause sw6 - Migraine Headache, [id number] 6 Forms: - Medication Reconciliation Form sw6 - Antibiotic Education sw6 - Prescription Opioid Use sw6 - Patient Portal Instructions 6 - Leadership Thank You Letter 6 NIH Stroke Scale - NIH Stroke Score Date: 09/20/2024 Time: 12:01 Total Score = 0 10. Dysarthria (speech clarity - read or repeat words) - 0(Normal) 11. Extinction and Inattention (visual/tactile/auditory/spatial/personal) - 0(No abnormality) 1a. Level of Consciousness (LOC) - 0(Alert) 1b. Level of Consciousness (LOC) (Month \T\ Age) - 0(Both) 1c. LOC Commands (Open \T\ Closes Eyes/Photo Producer) - 0(Both) 2. Best Gaze (Lateral Gaze Paresis) - 0(Normal) 3. Visual Field Loss - 0(No visual loss) 4. Facial Palsy - 0(Normal) 5a. Left Arm: Motor (10-second hold) - 0(No drift) 5b. Right Arm: Motor (10-second hold) - 0(No drift) 6a. Left Leg: Motor (5-second hold - always test supine) - 0(No drift) 6b. Right Leg: Motor (5-second hold - always test supine) - 0(No drift) 7. Limb Ataxia (finger/nose \T\ heel/chowdhury - test with eyes open) - 0(Absent) 8. Sensory Loss (pinprick arms/legs/face) - 0(Normal) 9. Best Language: Aphasia (description/naming/reading) - 0(No aphasia) Initials: sw6 Signatures: Dispatcher [employer] Sheba Melo RN RN ss Ana Lu MD MD sw6 Elba Davila RN RN kj2 Corrections: (The following items were deleted from the chart) 11:23 11:22 PMHx: MTHFR (Unknown); ss
--- NOTE | 2024-09-20 14:54 | ER ---
Nurse's Notes [facility] Name: Christiane Rubio Age: 43 yrs Sex: Female : 1980 Arrival Date: 09/20/2024 Time: 11:07 Bed 17 Private MD: Diagnosis: Headache Presentation: 09/20 11:21 Chief complaint: Patient states: Nausea and diarrhea that began yesterday. Headache ss that began today. Coronavirus screen: Client denies travel out of the [place] in the last 14 days. Ebola Screen: Patient denies exposure to infectious person. Patient denies travel to an Ebola-affected area in the 21 days before illness onset. Initial Sepsis Screen: Does the patient meet any 2 criteria? No. Patient's initial sepsis screen is negative. Does the patient have a suspected source of infection? No. Patient's initial sepsis screen is negative. Risk Assessment: Do you want to hurt yourself or someone else? Patient reports no desire to harm self or others. Onset of symptoms was September 19, 2024. 11:21 Method Of Arrival: Ambulatory ss 11:21 Acuity: SAROJ 3 ss Triage Assessment: 13:30 Headache History: The patient has had previous headaches. General: Appears in no kj2 apparent distress. General: Behavior is cooperative. Pain: Complains of pain in head Pain began 1 day ago. Also complains of nausea. 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 - Infectious Disease History:: Denies. - Social history:: Smoking status: Reported history of juuling and/or vaping. Screenin:30 [facility] ED Fall Risk Assessment (Adult) History of falling in the last 3 months, kj2 including since admission No falls in past 3 months (0 pts) Confusion or Disorientation No (0 pts) Intoxicated or Sedated No (0 pts) Impaired Gait No (0 pts) Mobility Assist Device Used No (0 pt) Altered Elimination No (0 pt) Score/Fall Risk Level 0 - 2 = Low Risk Maintained a safe environment, Hourly rounding (assess needs \T\ fall precautionary measures) done. Abuse screen: Denies threats or abuse. Denies injuries from another. Nutritional screening: No deficits noted. Tuberculosis screening: No symptoms or risk factors identified. Assessment: 13:30 General: Appears in no apparent distress. Behavior is cooperative. Pain: Complains of kj2 pain in head Pain currently is 5 out of 10 on a pain scale. Neuro: Level of Consciousness is awake, alert, obeys commands, Oriented to person, place, time, situation. Cardiovascular: Patient's skin is warm and dry. Respiratory: Airway is patent Respiratory effort is even, unlabored. GI: Reports diarrhea, nausea. : No signs and/or symptoms were reported regarding the genitourinary system. 14:29 Reassessment: Patient appears in no apparent distress at this time. Patient and/or kj2 family updated on plan of care and expected duration. Pain level reassessed. Patient is alert, oriented x 3, equal unlabored respirations, skin warm/dry/pink. 14:55 Reassessment: Patient appears in no apparent distress at this time. Patient and/or kj2 family updated on plan of care and expected duration. Pain level reassessed. Patient is alert, oriented x 3, equal unlabored respirations, skin warm/dry/pink. Vital Signs: 11:21 BP 130 / 85; Pulse 94; Resp 16; Pulse Ox 98% on R/A; ss 11:24 Temp 98.2(O); Weight 99.34 kg; Height 5 ft. 2 in. ; Pain 6/10; ss 13:30 BP 132 / 84; Pulse 92; Resp 18; Pulse Ox 100% on R/A; kj2 14:59 BP 130 / 80; Pulse 88; Resp 20; Temp 98; Pulse Ox 100% ; kj2 11:24 Body Mass Index 40.06 (99.34 kg, 157.48 cm) ss 11:24 Pain Scale: Adult ss NIH Stroke Scale Scores: 12:01 NIHSS Score: 0 6 ED Course: 11:10 Patient arrived in ED. al6 11:18 Ana Lu MD is Attending Physician. 6 11:22 Triage completed. ss 11:22 Arm band placed on right wrist. ss 11:41 CT Head Brain wo Cont In Process Unspecified. EDMS 13:30 Patient has correct armband on for positive identification. Bed in low position. Call kj2 light in reach. Provided Education on: call light. 13:39 Elba Davila, RN is Primary Nurse. kj2 13:57 Inserted saline lock: 22 gauge in left forearm, using aseptic technique. Flushed with am7 10 mL NS. 13:58 Warm blanket given. am7 14:56 No provider procedures requiring assistance completed. IV discontinued, intact, kj2 bleeding controlled, No redness/swelling at site. Pressure dressing applied. Administered Medications: 14:02 Drug: metoCLOPramide IVP 10 mg IVP once; over 1 to 2 minutes Route: IVP; Site: left kj2 forearm; 14:58 Follow up: Response: No adverse reaction kj2 14:02 Drug: diphenhydrAMINE IVP 12.5 mg IVP once Route: IVP; Site: left forearm; kj2 14:58 Follow up: Response: No adverse reaction kj2 14:02 Drug: Ketorolac IVP 10 mg 10 mg IVP once Route: IVP; Site: left forearm; kj2 14:58 Follow up: Response: No adverse reaction kj2 14:02 Drug: Decadron - Dexamethasone IVP 10 mg IVP once Route: IVP; Site: left forearm; kj2 14:58 Follow up: Response: No adverse reaction kj2 14:02 Drug: NS 0.9% IV 1000 ml IV at 1000 ml once; to be given as a bolus over 60 minutes kj2 Route: IV; Rate: 1000 ml; Site: left forearm; 14:59 Follow up: IV Status: Completed infusion; IV Intake: 1000ml kj2 Medication: 14:55 VIS not applicable for this client. kj2 Intake: 14:59 IV: 1000ml; Total: 1000ml. kj2 Outcome: 14:54 Discharge ordered by MD. fowler 14:57 Discharged to home ambulatory, kj2 14:57 Condition: stable 14:57 Discharge instructions given to patient, Instructed on discharge instructions, follow up and referral plans. Demonstrated understanding of instructions, follow-up care, 15:07 Patient left the ED. kj2 NIH Stroke Scale - NIH Stroke Score Date: 09/20/2024 Time: 12:01 Total Score = 0 10. Dysarthria (speech clarity - read or repeat words) - 0(Normal) 11. Extinction and Inattention (visual/tactile/auditory/spatial/personal) - 0(No abnormality) 1a. Level of Consciousness (LOC) - 0(Alert) 1b. Level of Consciousness (LOC) (Month \T\ Age) - 0(Both) 1c. LOC Commands (Open \T\ Closes Eyes/Business Risk Analyst) - 0(Both) 2. Best Gaze (Lateral Gaze Paresis) - 0(Normal) 3. Visual Field Loss - 0(No visual loss) 4. Facial Palsy - 0(Normal) 5a. Left Arm: Motor (10-second hold) - 0(No drift) 5b. Right Arm: Motor (10-second hold) - 0(No drift) 6a. Left Leg: Motor (5-second hold - always test supine) - 0(No drift) 6b. Right Leg: Motor (5-second hold - always test supine) - 0(No drift) 7. Limb Ataxia (finger/nose \T\ heel/chowdhury - test with eyes open) - 0(Absent) 8. Sensory Loss (pinprick arms/legs/face) - 0(Normal) 9. Best Language: Aphasia (description/naming/reading) - 0(No aphasia) Initials: sw6 Signatures: Dispatcher [employer] Sheba Melo, JOON RN ss Ana Lu MD MD sw6 Elba Davila RN RN kj2 Radha Valdez am7 Nell Santos6 Corrections: (The following items were deleted from the chart) 11:23 11:22 PMHx: MTHFR (Unknown); ss ss
[2024-09-20 15:49] VITALS: O2SAT 100
[2024-09-20 15:51] VITALS: BP 130/80; TEMP 98
== END 2024-09-20 15:07 | disposition home or self-care (01) ==
LOC: ER 11:07
DX: R51.9 Headache, unspecified (principal); R19.7 Diarrhea, unspecified
CPT/HCPCS: 96361; 70450; 96375; 96374; 99284; J2765; J1200; J1100; J7030

== ENCOUNTER 2024-09-24 19:32 | Emergency (ER) | payer OTHER ==
[2024-09-24] MEDS ORDERED: methocarbamoL 750 MG TAB ONE (21:14)
[2024-09-24] MEDS ORDERED: KETOROLAC 30 MG/ML INJ ONE (21:14)
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
[2024-09-25 22:01] VITALS: TEMP 98.5
[2024-09-25 22:06] VITALS: BP 128/84; O2SAT 97
== END 2024-09-24 22:39 | disposition home or self-care (01) ==
LOC: ER 19:32
DX: M54.6 Pain in thoracic spine (principal); V49.49XA Driver injured in collision with other motor vehicles in traffic accident, initial encounter
CPT/HCPCS: 72070; 96372; 99284